=== PATIENT | male | born 1980 | race Caucasian/White ===

== ENCOUNTER 2019-08-22 18:21 | Inpatient (IN) ==
[2019-08-22] MEDS ORDERED: KETOROLAC TROMETHAMINE 60 MG/2 ML VIAL IM STA (18:45)
[2019-08-22] MEDS ORDERED: CYCLOBENZAPRINE HCL 10 MG TAB PO STA (18:45)
[2019-08-22] MEDS ORDERED: OXYCODONE/ACETAMINOPHEN 5mg/325mg TAB PO STA (18:45)
[2019-08-22] MEDS ORDERED: DEXAMETHASONE **PF** INJ 10 MG/ML VIAL IM ONE (18:45)
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
[2019-08-22] MEDS ORDERED: FLEXERIL HOME PACK 10 MG VIAL PO ONE (19:50)
[2019-08-22] MEDS ORDERED: OXYCODONE IR HOME PACK PO ONE (19:50)
[2019-08-22] MEDS ORDERED: cefTRIAXone SODIUM 2,000 MG/70 ML BAG IV STA (20:07)
[2019-08-22] MEDS ORDERED: VANCOMYCIN HCL 1,750 MG in SODIUM CHLORIDE 0.9% 500 ML IV ONE (20:07)
[2019-08-22] MEDS ORDERED: VANCOMYCIN CONSULT ACTIVE PRN (20:07)
--- NOTE | 2019-08-22 20:12 | CT Scan Report ---
CT OF THE LUMBAR SPINE WITHOUT CONTRAST CLINICAL HISTORY: Low back pain down legs ? incontinence COMPARISON STUDY: Lumbar spine radiographs June 01, 2019. TECHNIQUE: Axial images of the lumbar spine were obtained without IV contrast. Sagittal and coronal r econstructions were viewed. Automated exposure control was utilized for the study. A dose lowering t echnique was utilized adhering to the principles of ALARA. FINDINGS: For purposes of numbering on this exam, the L5-S1 disc space is assigned to axial image 338 of [id number]. The patient is status post L4-L5 and L5-S1 discectomies with interbody spacer placement. Pos terior decompression is noted with bilateral pedicle screws at the L4, L5 and S1 levels. The hardware is intact. Note is made of erosion of the inferior endplate of L2 and the superior endplate of L3 wi th disc space narrowing and paravertebral infiltration. This is new since CT of July 20, 2018. Ev aluation is suboptimal on this unenhanced CT. Intracanalicular density is noted at the L2-L3 level. N o additional acute findings are noted within the lumbar spine by CT. There is no fracture or suspicio us lesion. Sigmoid diverticulosis with sigmoid colon wall thickening is partially imaged on this exam . There is mild pericolonic infiltration. Similar findings were shown on CT of July 20, 2018. IMPRESSION: 1. Findings consistent with L2-L3 discitis with associated osteomyelitis. Suboptimal evaluation of th e canal given CT technique. Intracanalicular density at the L2-L3 level could reflect a phlegmon or a bscess. If possible, an MRI of the lumbar spine with and without contrast is recommended. Findings di scussed with Tsering Ball at time of dictation. 2. Status post L4-L5 and L5-S1 discectomies with posterior decompression and bilateral pedicle screw fusion. 3. Persistent mild acute sigmoid diverticulitis, partially imaged on this exam. This was shown on CT of July 20, 2018. A follow-up nonemergent colonoscopy is recommended to exclude the possibility o f an underlying neoplasm. Electronically signed by: Ankit Del Rio M.D. 08/22/2019 8:10 PM
[2019-08-22] MEDS ORDERED: MoRPHine SULFATE 4 MG/ML 1 ML CARP\\VIAL IV STA (20:41)
[2019-08-22] MEDS ORDERED: LIDOCAINE 5% 1 PATCH TD STA (21:05)
[2019-08-22 21:14] LABS: Appearance Urine Clear (Clear); Blood Urine Negative (Negative); Color Urine Dark Yellow; Glucose Urine UA Negative (Negative); Ketones Urine Negative (Negative); Leukocyte Esterase Urine Negative (Negative); Nitrite Urine Negative (Negative); Protein Urine Negative (Negative); Specific Gravity Urine 1.031 (1.000-1.030); Urobilinogen Urine Negative (Negative)
[2019-08-22 21:15] LABS: Basophils # (auto) 0.03 K/uL (0-0.2); Basophils % (auto) 0.2 %; Eosinophils # (auto) 0.22 K/uL (0-0.5); Eosinophils % (auto) 1.6 %; Hematocrit (blood only) 40.6 % (42-52); Hemoglobin 13.5 g/dL (14.0-18.0); Immature Granulocytes # (auto) 0.04 K/uL (0.00-0.02); Immature Granulocytes % (auto) 0.3 %; Lymphocytes # (auto) 1.11 K/uL (1.2-3.4); Mean Corpuscular Hemoglobin 29.3 pg (25-34); Mean Corpuscular Hgb Conc 33.3 g/dL (32-36); Mean Corpuscular Volume 88.3 fL (80-100); Mean Platelet Volume 10.6 fL (7.4-10.4); Monocytes % (auto) 4.3 %; Neutrophils # (auto) 11.92 K/uL (1.4-6.5); Neutrophils % (auto) 85.6 %; Platelet Count 348 K/uL (130-400); RDW Coefficient of Variation 15.2 % (11.5-14.5); RDW Standard Deviation 48.8 fL (36.4-46.3); White Blood Count 13.92 K/uL (4.8-10.8)
[2019-08-22 21:23] LABS: Bilirubin Urine Negative (Negative); Ictotest Urine Negative (Negative)
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
[2019-08-22 21:31] LABS: INR 1.1 (0.9-1.1); Prothrombin Time 10.9 Seconds (9.0-12.0)
[2019-08-22 21:38] LABS: Albumin Level 3.9 gm/dl (3.4-5.0); BUN Creatinine Ratio 9.4 (10-20); Calcium 9.6 mg/dl (8.5-10.1); Creatinine Clr Calc Pharmacy 108.8 ml/min; Est GFR (African American) 108.3; Est GFR (Non-African American) 93.5; Potassium 3.6 mmol/L (3.5-5.1)
[2019-08-22 21:41] LABS: Albumin Globulin Ratio 0.9 (0.9-2); Bilirubin,Total 0.3 mg/dl (0.2-1); Globulin 4.5 gm/dl (2.5-4.0); Total Protein 8.4 gm/dl (6.4-8.2)
[2019-08-22] MEDS ORDERED: HYDROmorphone INJ 0.5 MG/0.5 ML SYR IV STA (22:40)
--- NOTE | 2019-08-22 22:52 | XRay Report ---
XR chest 1V portable CLINICAL HISTORY: cough COMPARISON STUDY: Chest radiograph January 20, 2019. FINDINGS: Lung volumes are normal. Lungs are clear. There is no pneumothorax or pleural effusion. Bor derline cardiomegaly is unchanged. Mediastinal contours are normal. There is no evidence for pulmonar y edema. IMPRESSION: No acute cardiopulmonary findings. Electronically signed by: Ankit Del Rio M.D. 08/22/2019 10:50 PM
[2019-08-22 23:20] LABS: Amphetamines+Metham, Urine Neg (Neg); Barbiturates, Urine Neg (Neg); Benzodiazepine, Urine Neg (Neg); Cocaine, Urine Neg (Neg); MDMA (Ecstacy), Urine Neg (Neg); Methadone, Urine Neg (Neg); Opiate, Urine Pos (Neg); Phencyclidine, Urine Neg (Neg)
[2019-08-22] MEDS ORDERED: PROMETHAZINE HCL 12.5 MG in SODIUM CHLORIDE 0.9% 50 ML IV PRN (23:27)
[2019-08-22] MEDS ORDERED: CEFEPIME CONSULT ACTIVE PRN (23:39)
[2019-08-22] MEDS: OXYCODONE HCL IR 5 MG TAB (IMMEDIATE RELEASE) PO PRN (23:47)
[2019-08-23] MEDS ORDERED: LACTATED RINGER'S 1,000 ML IV SCH
[2019-08-23] MEDS: CEFEPIME 2,000 MG in SYRINGE 7.5 ML IV SCH ×3 (00:24→23:15)
[2019-08-23] MEDS: LORazepam 0.25 MG/0.5 ML VIAL IV PRN ×2 (00:25→13:43)
[2019-08-23] MEDS ORDERED: LACTATED RINGER'S 1,000 ML IV ONE (01:43)
[2019-08-23] MEDS ORDERED: ACETAMINOPHEN 325 MG TAB PO PRN (01:44)
[2019-08-23] MEDS: HYDROmorphone INJ 0.5 MG/0.5 ML SYR IV PRN ×6 (02:19→23:16)
[2019-08-23] MEDS: LACTATED RINGER'S 1,000 ML IV SCH ×2 (04:41→18:28)
--- NOTE | 2019-08-23 05:06 | Pharmacy Report ---
Pharmacy Abx Initial Consult - Date of Service August 23, 2019 - Pharmacy Dosing Scope Date of Consult: 08/22/19 Consultation requested by: Dr. Arias Pharmacy is consulted to initiate Cefepime IV dosing and continue Vancomycin IV dosing therapy, order appropriate labs and adjust drug dose/frequency. - Subjective The patient is a 39 year old M admitted on 08/22/19 22:48 with possible osteomyelitis of spine. He has Hx of spinal fusion and presents today with pain, numbness and bouts of incontinence of both bowel and bladder. He has history of smoking as well. Dr. Arias continued the Vancomycin from the ED and asks pharmacy to also dose Cefepime in this patient. - Objective Height: 6 ft Weight: 90 kg Vital Signs (Past 12hrs): Vital Signs Temp Pulse Pulse Resp BP BP Pulse Ox 08/22/19 23:30 37.2 C 106 H 18 141/84 H 96 08/22/19 23:14 100 H 18 142/92 H 96 08/22/19 22:40 88 18 138/90 96 08/22/19 21:45 87 18 131/90 96 08/22/19 21:07 37.2 C 93 H 18 125/74 96 08/22/19 18:31 36.6 C 95 H 20 153/87 H 97 Lab Results (24hrs): Laboratory Tests (24 Hours) 08/22/19 08/22/19 20:45 20:45 WBC 13.92 H Neut # (Auto) 11.92 H Creatinine 1.02 Est Cr Clr Drug Dosing 108.8 Micro Results: 08/22/19 20:45 Aerobic Blood Culture - Pending Blood Anaerobic Blood Culture - Pending 08/22/19 20:45 Aerobic Blood Culture - Pending Blood Anaerobic Blood Culture - Pending - Assessment & Plan Assessment 39 year old M with possible infection in spine Plan Vancomycin IV * Estimated PK Parameters: Vd 0.7 L/kg, Josh 0.095 hr-1, t1/2 7.29 hr * Loading dose: 1750 mg (19 mg/kg) in ED * Maintenance dose: 1500mg IV (~16mg/kg) every 8hours * Goal trough level: 15-20 mcg/mL * Trough level ordered prior to 0800 dose on 08/24/19 Cefepime IV 2gm IV every 12 hours indicated for skin/structure infections; no adjustment for CRCL of >100 ml/min Pharmacy will continue to follow and will adjust dose/frequency as necessary. Thank you.
[2019-08-23 07:48] LABS: Eosinophils # (auto) 0.03 K/uL (0-0.5); Eosinophils % (auto) 0.5 %; Hematocrit (blood only) 37.6 % (42-52); Hemoglobin 12.2 g/dL (14.0-18.0); Immature Granulocytes # (auto) 0.01 K/uL (0.00-0.02); Immature Granulocytes % (auto) 0.2 %; Lymphocytes # (auto) 0.82 K/uL (1.2-3.4); Lymphocytes % (auto) 14.8 %; Mean Corpuscular Hemoglobin 28.4 pg (25-34); Mean Corpuscular Hgb Conc 32.4 g/dL (32-36); Mean Corpuscular Volume 87.6 fL (80-100); Mean Platelet Volume 10.9 fL (7.4-10.4); Monocytes # (auto) 0.34 K/uL (0.11-0.59); Monocytes % (auto) 6.1 %; Neutrophils # (auto) 4.35 K/uL (1.4-6.5); Neutrophils % (auto) 78.4 %; Platelet Count 301 K/uL (130-400); RDW Coefficient of Variation 15.3 % (11.5-14.5); RDW Standard Deviation 48.7 fL (36.4-46.3); Red Blood Count 4.29 M/uL (4.7-6.1); White Blood Count 5.55 K/uL (4.8-10.8)
[2019-08-23 08:18] LABS: Calcium 9.4 mg/dl (8.5-10.1); Creatinine Clr Calc Pharmacy 137.1 ml/min; Est GFR (African American) 131.6; Est GFR (Non-African American) 113.5; Potassium 3.9 mmol/L (3.5-5.1)
[2019-08-23] MEDS: VANCOMYCIN HCL 1,500 MG in SODIUM CHLORIDE 0.9% 500 ML IV SCH ×3 (08:20→23:15)
[2019-08-23 09:00] LABS: Folate (Folic Acid) 9.74 ng/ml (>5.38)
[2019-08-23] MEDS: OXYCODONE HCL IR 5 MG TAB (IMMEDIATE RELEASE) PO PRN ×2 (09:49→18:27)
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
--- NOTE | 2019-08-23 11:51 | Orthopedic Consultation ---
Date of Consultation August 23, 2019 Assessment & Plan (1) Lumbar discitis: I spoke with the patient and his mother who is in the room at the time. There is evidence of discitis at L2-3. I have received permission from his landcare officer to cut his ankle bracelet off and subsequently proceed with an MRI of the lumbar spine. Related the patient and his mother that we would most likely be able to treat this with appropriate antibiotics and hopefully avoid any surgical intervention. He understands and agrees. Present on Admission?: Yes History of Present Illness Reason for Consultation: Back and bilateral leg pain Attending Physician: Jared Dorman MD History of Present Illness This is a 39-year-old male known to me from having undergone a multilevel lumbar decompression fusion several years ago the presents the emergency room with severe back and bilateral leg symptoms. He states this began several months ago with a modest twisting event. At this time his pain is somewhat controlled. He denies any leg pain he does state he is able to up and ambulate without difficulty other than the leg pain. Allergies Allergy/AdvReac Type Severity Reaction Status Date / Time fentanyl Allergy Severe ANAPHYLAXIS Verified 08/22/19 23:06 propoxyphene Allergy Intermediate TONGUE Verified 08/22/19 23:06 NUMBNESS tramadol Allergy Intermediate swelling Verified 08/22/19 23:06 ketorolac AdvReac Intermediate FACIAL Verified 08/22/19 23:06 SWELLING/THROAT SWELLING Home Medications Home Medications Medication Instructions Recorded Confirmed Type acetaminophen [Tylenol Extra 1,000 mg PO Q6H PRN 08/22/19 08/22/19 History Strength] cyclobenzaprine 20 mg PO TID PRN #15 tab 08/22/19 08/22/19 Rx Patient History Medical History Osteoarthritis Spinal stenosis Temporomandibular joint disorder Surgical History Fusion of spine LUMBAR History of anesthesia reaction BP DROPS History of back surgery (Resolved) History of tooth extraction Hx of cholecystectomy (Resolved) S/P nasal surgery RE-SET D/T FRACTURE Family History Grandfather (Maternal) Family history of diabetes mellitus Social History Preferred Language: Palauan Communication Ability: Effective 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 He has reasonable strength testing bilateral extremities. Results & Data Vital Signs (Past 12 Hours) Vital Signs Temp Pulse Resp BP Pulse Ox 08/23/19 07:00 36.8 C 79 16 99/59 L 95 08/23/19 05:45 36.5 C 78 16 127/66 95
--- NOTE | 2019-08-23 14:53 | Magnetic Resonance Report ---
MR lumbar spine wo con CLINICAL HISTORY: 39 years-old Male presenting with discitis osteomyelitis on CT, possible intracanal icular phlegmon at L2-3 MRI for further evaluation, lumbar pain for 2 months, no history of trauma, h istory of spinal fusion 17 years ago, left foot numbness. TECHNIQUE: Multisequence, multiplanar MR imaging of the lumbar spine was performed without the use of intravenous contrast. IV contrast: None. COMPARISON: CT lumbar spine from 08/22/2019. FINDINGS: Localizer images: Unremarkable. Straightening of normal lumbar lordosis. Diffuse bony edema throughout L2 and L3. Associated diffuse T1 hypointensity of L2 and T1 hypointensi ty centered at the superior endplate of L3 occupying approximately 50% of the vertebral body. Abnorma l fluid within the L2-3 intervertebral disc. A disc bulge at this level results in moderate to severe effacement of the ventral thecal sac with trace residual CSF evident. Extensive paraspinal edema at this level, left greater than right. There is associated edema with upward lifting of the posterior l ongitudinal ligament. There is no convincing evidence of an epidural collection allowing for the lack of intravenous contrast on this exam. Associated moderate to severe bilateral neural foraminal narro wing. Redemonstration of posterior bilateral transpedicular screw and mary fixation of L4-S1 with laminectom y defects of L4 and L5. Adequate posterior decompression. Allowing for susceptibility artifact, no ne ural foraminal narrowing. Interbody spacers noted at L4-5 and L5-S1. Grossly normal bone marrow signa l at these levels. No fluid collection in the operative bed, expected signal intensity changes in the operative bed. Mild disc bulge at L3-4 consistent with adjacent level degenerative change. This results in moderate effacement of the ventral thecal sac and lateral recesses. Abutment of the transiting L4 nerve root s uspected. Moderate bilateral neural foraminal narrowing. Possible mass effect on the exiting L3 nerve roots. Spinal cord terminates in good position at L1. Cauda equina crowding to moderate to severe degree at L2-3 though otherwise normal. No evidence of a buckled morphology to suggest cauda equina impingement . Flow voids within the vasculature preserved. Remaining visualized soft tissues within normal limits . IMPRESSION: 1. Findings highly suspicious for infectious discitis osteomyelitis at L2-3. Disc bulge at this leve l is related to discitis and results in moderate to severe spinal canal stenosis. No convincing evide nce of cauda equina impingement. No convincing evidence of an epidural abscess or epidural extension of infection. 2. Reactive edema along the ventral spinal canal at L2 and L3 with up lifting of the posterior longi tudinal ligament. 3. Moderate to severe bilateral neural foraminal narrowing at L2-3. 4. Posterior lumbar fusion at L4-S1, interbody spacers, and L4-5 laminectomies. 5. Adjacent level degenerative change at L3-4 with moderate spinal canal stenosis and moderate bilat eral neural foraminal narrowing. Possible mass effect on exiting L3 nerve roots. The report will be called/faxed according to standard departmental protocol for a critical finding. ACT 112: Negative or not required by law. Electronically signed by: Nathen Boothe M.D. 08/23/2019 2:51 PM
--- NOTE | 2019-08-23 15:42 | Hospitalist Progress Note ---
Date of Service August 23, 2019 Assessment & Plan (1) Osteomyelitis of lumbar spine: (2) Lumbar discitis: Lumbar discitis/osteomyelitis --MRI Lumbar Spine:Findings highly suspicious for infectious discitis osteomyelitis at L2-3. Disc bulge at this level is related to discitis and results in moderate to severe spinal canal stenosis. No convincing evidence of cauda equina impingement. No convincing evidence of an epidural abscess or epidural extension of infection. Reactive edema along the ventral spinal canal at L2 and L3 with up lifting of the posterior longitudinal ligament. Moderate to severe bilateral neural foraminal narrowing at L2-3. Posterior lumbar fusion at L4-S1, interbody spacers, and L4-5 laminectomies. Adjacent level degenerative change at L3-4 with moderate spinal canal stenosis and moderate bilateral neural foraminal narrowing. Possible mass effect on exiting L3 nerve roots. --Unclear source of infection. Urine drug screen positive for opiates --Continue IV vancomycin, cefepime Day#2 --Blood cultures pending --Appreciate orthopedics, ID input --Pain control --Gentle IV fluids (3) Tobacco use disorder: Smoking cessation counseling DVT Px: SCDs for now Ambulate Subjective Patient seen and examined at bedside Complains of low back pain radiating down legs Denies any abdominal pain, nausea, vomiting Also denies any chest pain, shortness of breath, dizziness Family at bedside Offers no other complaints Review of Systems Review of Systems: All systems reviewed & are unremarkable except as noted in HPI & below Physical Exam Physical Exam: Physical Exam: Vitals signs as noted above General Appearance:Moderately built and nourished, no apparent distress Head: normocephalic, Atraumatic Eyes: normal inspection, EOMI Neck: supple, Trachea midline Respiratory/Chest: Normal breath sounds, CTA Cardiovascular: S1, S2, No murmur Abdomen/GI:Soft, Non tender, Bowel sounds present Extremities/Musculoskelatal:normal inspection, no edema Spine: Lumbar spinal/paraspinal tenderness Neurologic/Psych:AAOX3, grossly no focal neurological deficits Skin: normal color, warm Results & Data Vital Signs (Past 12 Hours) Vital Signs Temp Pulse Resp BP Pulse Ox 08/23/19 15:09 36.9 C 83 16 123/73 97 08/23/19 07:00 36.8 C 79 16 99/59 L 95 08/23/19 05:45 36.5 C 78 16 127/66 95 Laboratory Results Short CBC 08/22/19 08/23/19 Range/Units 20:45 07:07 WBC 13.92 H 5.55 (4.8-10.8) K/uL Hgb 13.5 L 12.2 L (14.0-18.0) g/dL Hct 40.6 L 37.6 L (42-52) % Plt Count 348 301 (130-400) K/uL BMP 08/22/19 08/23/19 20:45 07:07 Sodium 137 137 Potassium 3.6 3.9 Chloride 104 105 Carbon Dioxide 27 27 BUN 10 13 Creatinine 1.02 0.81 Glucose 108 H 160 H Calcium 9.6 9.4 Liver Function 08/22/19 Range/Units 20:45 Total Bilirubin 0.3 (0.2-1) mg/dl AST 18 (15-37) U/L ALT 41 (12-78) U/L Alkaline Phosphatase 125 H (45-117) U/L Albumin 3.9 (3.4-5.0) gm/dl Urine 08/22/19 Range/Units 20:08 Urine Color Dark Yellow Urine Appearance Clear (Clear) Urine pH 5.0 (4.5-7.5) Ur Specific [place] 1.031 H (1.000-1.030) Urine Protein Negative (Negative) Urine Glucose (UA) Negative (Negative)
[2019-08-23] MEDS: LIDOCAINE 5% 1 PATCH TD SCH (20:00)
[2019-08-24] MEDS: HYDROmorphone INJ 0.5 MG/0.5 ML SYR IV PRN ×6 (02:27→21:21)
[2019-08-24] MEDS ORDERED: VANCOMYCIN TROUGH ONE (07:30)
[2019-08-24 07:38] LABS: Hematocrit (blood only) 37.2 % (42-52); Mean Corpuscular Hemoglobin 28.8 pg (25-34); Mean Corpuscular Hgb Conc 32.3 g/dL (32-36); Mean Corpuscular Volume 89.4 fL (80-100); Mean Platelet Volume 10.6 fL (7.4-10.4); Platelet Count 301 K/uL (130-400); RDW Coefficient of Variation 15.5 % (11.5-14.5); RDW Standard Deviation 49.8 fL (36.4-46.3); Red Blood Count 4.16 M/uL (4.7-6.1); White Blood Count 10.46 K/uL (4.8-10.8)
[2019-08-24 08:09] LABS: Creatinine Clr Calc Pharmacy 133.7 ml/min; Est GFR (African American) 130.3; Est GFR (Non-African American) 112.4; Potassium 3.8 mmol/L (3.5-5.1)
[2019-08-24] MEDS: VANCOMYCIN HCL 1,500 MG in SODIUM CHLORIDE 0.9% 500 ML IV SCH ×3 (08:33→23:37)
--- NOTE | 2019-08-24 08:55 | Orthopedic Progress Note ---
Date of Service August 24, 2019 Assessment & Plan (1) Vertebral osteomyelitis, acute: Patient had MRI last evening. Dr. Cooper is out of town today to review this. The plan is to try and treat this conservatively. I will make him n.p.o. after midnight just in case Dr. Cooper decides to take him to the OR tomorrow in light of his MRI findings. Supervising Physician Co-Signing Physician Notes Dr. Yoseph Cooper Subjective Patient seen and examined at bedside Complains of low back pain radiating down legs Denies any abdominal pain, nausea, vomiting Also denies any chest pain, shortness of breath, dizziness Family at bedside Offers no other complaints Review of Systems Review of Systems: All systems reviewed & are unremarkable except as noted in HPI & below Physical Exam Physical Exam: Unchanged Results & Data Vital Signs (Past 12 Hours) Vital Signs Temp Pulse Resp BP Pulse Ox 08/24/19 07:26 36.5 C 77 20 134/74 98 08/23/19 23:12 36.6 C 77 16 111/67 98 Diagnostic Findings [place], [place] [phone] Magnetic Resonance Report Patient: BERTO JARAMILLOAdmit Date: 08/22/19 MR#: [id number]: [id number] MEDOW Acct ID:[id number]: Date: 1980[facility] Zip: [place] [address] Age: 39Location: 3W Sex: M Room/Bed: [facility] Att Phy: Jared Dorman MDDiagnosis: SPINE OSTEOMYELITIS Lucero Phy: PCP,NOService Date: 08/23/19 Fam Phy: PCP,NOInterpreting Phy: Nathen Boothe MD Admit Phy: Aron Arias MD Ordering Phy: Jared Dorman MD cc: ~ MR lumbar spine wo con CLINICAL HISTORY: 39 years-old Male presenting with discitis osteomyelitis on CT, possible intracanalicular phlegmon at L2-3 MRI for further evaluation, lumbar pain for 2 months, no history of trauma, history of spinal fusion 17 years ago, left foot numbness. TECHNIQUE: Multisequence, multiplanar MR imaging of the lumbar spine was performed without the use of intravenous contrast. IV contrast: None. COMPARISON: CT lumbar spine from 08/22/2019. FINDINGS: Localizer images: Unremarkable. Straightening of normal lumbar lordosis. Diffuse bony edema throughout L2 and L3. Associated diffuse T1 hypointensity of L2 and T1 hypointensity centered at the superior endplate of L3 occupying approximately 50% of the vertebral body. Abnormal fluid within the L2-3 intervertebral disc. A disc bulge at this level results in moderate to severe effacement of the ventral thecal sac with trace residual CSF evident. Extensive paraspinal edema at this level, left greater than right. There is associated edema with upward lifting of the posterior longitudinal ligament. There is no convincing evidence of an epidural collection allowing for the lack of intravenous contrast on this exam. Associated moderate to severe bilateral neural foraminal narrowing. Redemonstration of posterior bilateral transpedicular screw and mary fixation of L4-S1 with laminectomy defects of L4 and L5. Adequate posterior decompression. Allowing for susceptibility artifact, no neural foraminal narrowing. Interbody spacers noted at L4-5 and L5-S1. Grossly normal bone marrow signal at these levels. No fluid collection in the operative bed, expected signal intensity changes in the operative bed. Mild disc bulge at L3-4 consistent with adjacent level degenerative change. This results in moderate effacement of the ventral thecal sac and lateral recesses. Abutment of the transiting L4 nerve root suspected. Moderate bilateral neural foraminal narrowing. Possible mass effect on the exiting L3 nerve roots. Spinal cord terminates in good position at L1. Cauda equina crowding to moderate to severe degree at L2-3 though otherwise normal. No evidence of a buckled morphology to suggest cauda equina impingement. Flow voids within the vasculature preserved. Remaining visualized soft tissues within normal limits. IMPRESSION: 1. Findings highly suspicious for infectious discitis osteomyelitis at L2-3. Disc bulge at this level is related to discitis and results in moderate to severe spinal canal stenosis. No convincing evidence of cauda equina impingement. No convincing evidence of an epidural abscess or epidural extension of infection. 2. Reactive edema along the ventral spinal canal at L2 and L3 with up lifting of the posterior longitudinal ligament. 3. Moderate to severe bilateral neural foraminal narrowing at L2-3. 4. Posterior lumbar fusion at L4-S1, interbody spacers, and L4-5 laminectomies. 5. Adjacent level degenerative change at L3-4 with moderate spinal canal stenosis and moderate bilateral neural foraminal narrowing. Possible mass effect on exiting L3 nerve roots. The report will be called/faxed according to standard departmental protocol for a critical finding. ACT 112: Negative or not required by law. Electronically signed by: Nathen Boothe M.D. 08/23/2019 2:51 PM Dictated: 08/23/19 1441 Transcribed: 08/23/19 1441
[2019-08-24] MEDS: CEFEPIME 2,000 MG in SYRINGE 7.5 ML IV SCH ×2 (13:35→23:38)
[2019-08-24] MEDS: OXYCODONE HCL IR 5 MG TAB (IMMEDIATE RELEASE) PO PRN ×3 (15:26→23:37)
--- NOTE | 2019-08-24 17:37 | Anesthesiology Consultation ---
Date of Service August 24, 2019 Assessment & Plan (1) Encounter for pre-operative examination: Chart Review Chart Review: Acceptable Risk for Surgery History Surgery Operation Date: 08/25/19 07:00 Proposed Procedures p L1-L2 Posterior Lumbar Decompression, Possible Fusion - Yoseph Cooper DO s Incision and Drainage Lumbar Spine - Yoseph Cooper DO Height/Weight Height: 6 ft Weight: 90 kg Allergies Allergy/AdvReac Type Severity Reaction Status Date / Time fentanyl Allergy Severe ANAPHYLAXIS Verified 08/22/19 23:06 propoxyphene Allergy Intermediate TONGUE Verified 08/22/19 23:06 NUMBNESS tramadol Allergy Intermediate swelling Verified 08/22/19 23:06 ketorolac AdvReac Intermediate FACIAL Verified 08/22/19 23:06 SWELLING/THROAT SWELLING Medications Home Medications Medication Instructions Recorded Confirmed Last Taken acetaminophen [Tylenol Extra 1,000 mg PO Q6H PRN 08/22/19 08/22/19 08/22/19 Strength] cyclobenzaprine 20 mg PO TID PRN #15 tab 08/22/19 08/22/19 Unknown Active Medications Generic Name Dose Route Start Last Admin Trade Name Freq PRN Reason Stop Dose Admin Hydromorphone HCl 0.5 mg 08/22/19 23:27 08/24/19 17:29 Dilaudid IV 09/05/19 23:26 0.5 mg Q3H PRN Administration Pain Lorazepam 0.25 mg in 0.5 mls @ 0.5 mls/min 08/22/19 23:27 08/23/19 13:43 Ativan IV 09/21/19 23:26 0.5 mls/min Q4H PRN Administration Anxiety Cefepime HCl 2,000 mg/ Syringe 20 mls @ 5 mls/min 08/23/19 00:00 08/24/19 13:35 IV 10/04/19 00:00 5 mls/min Q12H KYRA Administration Protocol Vancomycin HCl 1,500 mg/ 530 mls @ 200 mls/hr 08/23/19 08:00 08/24/19 16:26 Sodium Chloride IV 10/04/19 07:59 200 mls/hr Q8H KYRA Administration Lidocaine 1 patch 08/23/19 21:00 08/23/19 20:00 Lidoderm 5% TD 09/22/19 20:59 1 patch HS KYRA Administration Miscellaneous 1 ea 08/23/19 09:00 08/24/19 08:47 Remove Lidoderm Patch N/A 09/22/19 08:59 1 ea QAM KYRA Administration Oxycodone HCl 5 mg 08/22/19 23:27 08/24/19 15:26 Roxicodone Immediate Rel PO 09/05/19 23:26 5 mg Q4H PRN Administration Pain NPO Date Last Intake of Fluids: 08/23/19 Date Last Intake of Solids: 08/23/19 Time Last Intake of Solids: 00:30 Past Medical History Medical History Osteoarthritis Spinal stenosis Temporomandibular joint disorder Past Family History Family History Grandfather (Maternal) Family history of diabetes mellitus Past Surgical History Surgical History Fusion of spine LUMBAR History of anesthesia reaction BP DROPS History of back surgery (Resolved) History of tooth extraction Hx of cholecystectomy (Resolved) S/P nasal surgery RE-SET D/T FRACTURE Social History Smoking Status: Current every day smoker tobacco type: cigarettes Smoking cigarettes per day: pack Do You Dip or Chew Tobacco: No Hx Alcohol Use: No Hx Substance Use: No substance use type: does not use Physical Exam Vital Signs Last Vital Signs Temp 36.7 C 08/24/19 14:49 Pulse 84 08/24/19 14:49 Resp 16 08/24/19 14:49 BP 136/88 08/24/19 14:49 Pulse Ox 97 08/24/19 14:49 Testing Laboratory Results 08/24/19 07:23 08/24/19 07:23 PT 10.9 Seconds (9.0-12.0) 08/22/19 20:45 INR 1.1 (0.9-1.1) 08/22/19 20:45 Urine Color Dark Yellow 08/22/19 20:08 Urine Appearance Clear (Clear) 08/22/19 20:08 Urine pH 5.0 (4.5-7.5) 08/22/19 20:08 Ur Specific [place] 1.031 (1.000-1.030) H 08/22/19 20:08 Urine Protein Negative (Negative) 08/22/19 20:08 Urine Glucose (UA) Negative (Negative) 08/22/19 20:08 Urine Ketones Negative (Negative) 08/22/19 20:08 Urine Nitrite Negative (Negative) 08/22/19 20:08 Ur Leukocyte Esterase Negative (Negative) 08/22/19 20:08 08/22/19 20:45 Aerobic Blood Culture - Preliminary Blood No growth in Aerobic bottle after 24 hours. Anaerobic Blood Culture - Preliminary No growth in Anaerobic bottle after 24 hours. 08/22/19 20:45 Aerobic Blood Culture - Preliminary Blood No growth in Aerobic bottle after 24 hours. Anaerobic Blood Culture - Preliminary No growth in Anaerobic bottle after 24 hours. Electrocardiogram Date: 01/20/19 Findings: + NSR @ (87) Chest X-Ray Date: 08/22/19 Findings: + NAD
--- NOTE | 2019-08-24 17:53 | Hospitalist Progress Note ---
Date of Service August 24, 2019 Assessment & Plan (1) Osteomyelitis of lumbar spine: (2) Lumbar discitis: Lumbar discitis/osteomyelitis --MRI Lumbar Spine:Findings highly suspicious for infectious discitis osteomyelitis at L2-3. Disc bulge at this level is related to discitis and results in moderate to severe spinal canal stenosis. No convincing evidence of cauda equina impingement. No convincing evidence of an epidural abscess or epidural extension of infection. Reactive edema along the ventral spinal canal at L2 and L3 with up lifting of the posterior longitudinal ligament. Moderate to severe bilateral neural foraminal narrowing at L2-3. Posterior lumbar fusion at L4-S1, interbody spacers, and L4-5 laminectomies. Adjacent level degenerative change at L3-4 with moderate spinal canal stenosis and moderate bilateral neural foraminal narrowing. Possible mass effect on exiting L3 nerve roots. --Unclear source of infection. Urine drug screen positive for opiates--Patient admits to taking PO Morphine prior to admission --Continue IV vancomycin, cefepime Day#3 --Blood cultures:No growth to date --Appreciate orthopedics, ID input --Pain control --Received IV fluids --NPO after midnight for possible procedure (3) Tobacco use disorder: Smoking cessation counseling DVT Px: SCDs for now Ambulate Subjective Patient seen and examined at bedside Continues to have lower back pain No new complaints Denies any chest pain, shortness of breath, dizziness, nausea, abd pain Review of Systems Review of Systems: All systems reviewed & are unremarkable except as noted in HPI & below Physical Exam Physical Exam: Physical Exam: Vitals signs as noted above General Appearance:Moderately built and nourished, no apparent distress Head: normocephalic, Atraumatic Eyes: normal inspection, EOMI Neck: supple, Trachea midline Respiratory/Chest: Normal breath sounds, CTA Cardiovascular: S1, S2, No murmur Abdomen/GI:Soft, Non tender, Bowel sounds present Extremities/Musculoskelatal:normal inspection, no edema Spine: Lumbar spinal/paraspinal tenderness Neurologic/Psych:AAOX3, grossly no focal neurological deficits Skin: normal color, warm Results & Data Vital Signs (Past 12 Hours) Vital Signs Temp Pulse Resp BP Pulse Ox 08/24/19 14:49 36.7 C 84 16 136/88 97 08/24/19 07:26 36.5 C 77 20 134/74 98 Laboratory Results Short CBC 08/24/19 Range/Units 07:23 WBC 10.46 (4.8-10.8) K/uL Hgb 12.0 L (14.0-18.0) g/dL Hct 37.2 L (42-52) % Plt Count 301 (130-400) K/uL BMP 08/24/19 07:23 Sodium 142 Potassium 3.8 Chloride 111 H Carbon Dioxide 27 BUN 12 Creatinine 0.83 Glucose 94 Calcium 9.0
[2019-08-24] MEDS: LIDOCAINE 5% 1 PATCH TD SCH (21:21)
[2019-08-25] MEDS: HYDROmorphone INJ 0.5 MG/0.5 ML SYR IV PRN ×6 (00:24→22:04)
[2019-08-25 00:37] LABS: Codeine Urine NEGATIVE ng/mL (<50); Hydrocodone Urine NEGATIVE ng/mL (<50); Hydromor Urine NEGATIVE ng/mL (<50); Morphine Urine 1700 ng/mL (<50); Norhydrocodone Conf Ur NEGATIVE ng/mL (<50); Noroxycodone Urine 289 ng/mL (<50); Oxycodone Urine 115 ng/mL (<50); Oxymorph Urine 216 ng/mL (<50)
[2019-08-25] MEDS: OXYCODONE HCL IR 5 MG TAB (IMMEDIATE RELEASE) PO PRN ×4 (04:06→20:42)
[2019-08-25 08:25] LABS: Creatinine Clr Calc Pharmacy 138.8 ml/min; Est GFR (African American) 132.3; Est GFR (Non-African American) 114.1
[2019-08-25] MEDS: VANCOMYCIN HCL 1,500 MG in SODIUM CHLORIDE 0.9% 500 ML IV SCH ×3 (08:41→23:29)
--- NOTE | 2019-08-25 10:29 | Pharmacy Report ---
Pharmacy Abx Dose Progress Nt - Date of Service August 25, 2019 - Pharmacy Dosing Scope The patient is currently receiving the following antimicrobial agents per Pharmacy consult: Vancomycin 1500 mg IV every 8 hours - Objective Vital Signs (Past 12hrs): Vital Signs Temp Pulse Resp BP Pulse Ox 08/25/19 07:42 36.7 C 65 16 129/73 98 08/24/19 22:50 36.8 C 68 18 121/74 97 Lab Results (24hrs): Laboratory Tests (24 Hours) 08/25/19 07:35 Creatinine 0.80 Est Cr Clr Drug Dosing 138.8 - Assessment & Plan Assessment 39 year old M receiving Vancomycin 1500 mg (16 mg/kg) IV Q8h for treatment of Osteomyelitis of the spine. Today is day #4 of antimicrobial therapy Vancomycin trough was drawn yesterday before dose at 0800, after 3 maintenance doses, so this is at steady state. 08/24/19 07:23 Vancomycin Trough 18.5 Plan Vancomycin IV * Trough level of 18.5 mcg/mL is therapeutic. * Continue dose of Vancomycin 1500 mg IV every 8 hours * Goal trough level for Osteo: 15 to 20 mcg/mL * Repeat trough level ordered for: 08/26/19 before dose at 0800 AM to confirm there is no accumulation. Pharmacy will continue to follow and will adjust dose/frequency as necessary. Thank you.
--- NOTE | 2019-08-25 11:04 | Orthopedic Progress Note ---
Date of Service August 25, 2019 Assessment & Plan (1) Osteomyelitis of lumbar spine: Patient is remained afebrile. He is neurologically intact. I discussed with him maintaining IV antibiotics and allowing this to heal on its own. He does have some evidence of stenosis in lumbar spine but the surgical procedure would be quite extensive nature and would like to avoid this if at all possible. We will order a brace for additional comfort measures and consult pain management for further guidance regarding his pain control. Present on Admission?: Yes Subjective Patient complaining of back pain that does radiate into his groin. He has however been ambulating regularly and no clear radicular complaints. Physical Exam Physical Exam: Patient sits up and stands without difficulty good strength testing. Results & Data Vital Signs (Past 12 Hours) Vital Signs Temp Pulse Resp BP Pulse Ox 08/25/19 07:42 36.7 C 65 16 129/73 98
[2019-08-25] MEDS: CEFEPIME 2,000 MG in SYRINGE 7.5 ML IV SCH ×2 (12:06→23:29)
--- NOTE | 2019-08-25 15:03 | Infectious Disease Progress Nt ---
Date of Service August 25, 2019 Assessment & Plan (1) Vertebral osteomyelitis, acute: continue abx, follow culture results, negtive to date suspet will remain negative. no plan for OR. would suggest 6 weeks IV cefepime and vanco as no + culture to guide therapy. will need weekly cbc, cmp, esr, vanco trough while on abx, maintain 15-20. Subjective pt remains afebrile. on vanco and cefepime. tolerting well. no cbc, cret 0.8. blood cultures remain negative. ortho following, no plan for OR Results & Data Vital Signs (Past 12 Hours) Vital Signs Temp Pulse Resp BP Pulse Ox 08/25/19 07:42 36.7 C 65 16 129/73 98 Laboratory Results Microbiology 08/22/19 20:45 Blood Aerobic Blood Culture - Preliminary No growth in Aerobic bottle after 48 hours. 08/22/19 20:45 Blood Anaerobic Blood Culture - Preliminary No growth in Anaerobic bottle after 48 hours. 08/22/19 20:45 Blood Aerobic Blood Culture - Preliminary No growth in Aerobic bottle after 48 hours. 08/22/19 20:45 Blood Anaerobic Blood Culture - Preliminary No growth in Anaerobic bottle after 48 hours. PG Care Time/CCT Total # of Minutes Spent Total Time Spent with Patient: Total time spent is greater than 50% in coordination of care (as documented) at patient's floor/unit and/or counseling patient:
--- NOTE | 2019-08-25 15:13 | Pain Management Consultation ---
Date of Consultation August 25, 2019 Assessment & Plan (1) Osteomyelitis of lumbar spine: Present on Admission?: Yes (2) Lumbar discitis: Present on Admission?: Yes (3) Lumbar radiculopathy: Present on Admission?: Yes (4) History of back surgery: 1. Patient is not a candidate for interventional treatment due to active osteomyelitis 2. Will initiate gabapentin 300 mg nightly progressing to 3 times daily over the next 3 days. Side effects versus benefits discussed. Consider further titration pending response. 3. Will initiate baclofen 10 mg 3 times daily. Side effects risk benefits discussed. 4. Will increase oxycodone to 10 mg every 4 hours PRN for breakthrough pain to assess efficacy. Side effects benefits discussed. He was encouraged to r eserve IV hydromorphone for pain not well controlled with oxycodone. 5. Patient being fitted for a back brace at this time with encouraged use with ambulatory activity Thank you for allowing us to participate in the care of Mr. Jaramillo. Present on Admission?: Yes History of Present Illness Reason for Consultation: Intractable back pain Requesting Physician: Yoseph Cooper DO Attending Physician: Jared Dorman MD History of Present Illness Mr. Jaramillo is a 39 year old white male admitted with complaints of intractable low back pain with radiation to the hips, groin, testicle/scrotal area and thighs in non-dermatomal patterns. Pain mostly travels to left posterior thigh, not travelling below the level of the knee. Patient reported onset in May occurring after lifting some heavy luggage. Patient has been found to have discitis and associated osteomyelitis at the L2 and L3 levels. Patient reports no history of trauma, fevers, night sweats or chills. He was evasive when questioned about IV drug use, but ultimately denied use. He does have history of L4-S1 fusion approximately 17 years ago. He denies any weaknesses in the lower extremities, bowel/bladder incontinence or saddle anesthesias. He reports minimal pain relief from IV hydromorphone and no pain relief from oxyIR 5 mg. He reports allergies to fentanyl, tramadol and ketorolac. He is ambulating in the hallways. Poor sleep quality and quantity due to the pain. Increased pain which he describes as sharp with any position or activity for any length of time. Plan of care discussed with Dr. Monson. Pain Assessment Full Body Front + Back: 1. Axial lumbosacral spine 2. Right hip/groin 3. Left hip/groin 4. Left posterior thigh Pain scale - at its best (0-10): 6 Pain scale - at its worst (0-10): 9 Allergies Allergy/AdvReac Type Severity Reaction Status Date / Time fentanyl Allergy Severe ANAPHYLAXIS Verified 08/22/19 23:06 propoxyphene Allergy Intermediate TONGUE Verified 08/22/19 23:06 NUMBNESS tramadol Allergy Intermediate swelling Verified 08/22/19 23:06 ketorolac AdvReac Intermediate FACIAL Verified 08/22/19 23:06 SWELLING/THROAT SWELLING Home Medications Home Medications Medication Instructions Recorded Confirmed Type acetaminophen [Tylenol Extra 1,000 mg PO Q6H PRN 08/22/19 08/22/19 History Strength] cyclobenzaprine 20 mg PO TID PRN #15 tab 08/22/19 08/22/19 Rx Pain History Pain Intensity Pain scale - at its best (0-10): 6 Pain scale - at its worst (0-10): 9 Patient History Medical History Osteoarthritis Spinal stenosis Temporomandibular joint disorder Surgical History Fusion of spine LUMBAR History of anesthesia reaction BP DROPS History of back surgery (Resolved) History of tooth extraction Hx of cholecystectomy (Resolved) S/P nasal surgery RE-SET D/T FRACTURE Family History Grandfather (Maternal) Family history of diabetes mellitus Social History Preferred Language: Sami Communication Ability: Effective 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 Speech and thought process appropriate. Mood and affect appropriate. Cognition intact. Patient accompanied by his mother. Head: Normocephalic and atraumatic. Eyes: Pupils equal round reactive to light. Neck: Supple without adenopathy and full range of motion. Abdomen: Soft and nondistended. No organomegaly. Bowel sounds active. Back/spine: Loss of lumbar lordosis. Well-healed midline incision over the lower lumbar spine. Hyperalgesic response to palpation over the entire lumbar region which is nonfocal to the midline, facet joint or SI joint region. Limited range of motion with apprehensive movement. Lower extremities: Any attempted SLR in the sitting position aggravated axial low back pain bilaterally. Strength testing rated at a 5/5 and equal without focal deficit. Sensation intact without deficit. No evidence of edema, erythema or skin breakdown. Neurologic: Cranial nerves grossly intact. Ambulatory function. Slowed and slightly guarded. Results Diagnostic Review MRI: non enhanced and reports reviewed MRI Findings: BERTO JARAMILLO 39 M 1980 [place], [place] [phone] Magnetic Resonance Report Patient: BERTO JARAMILLOAdmit Date: 08/22/19 MR#: [id number]: [address] [facility] Acct ID:[id number]: Date: 1980[facility] Zip: [place] [address] Age: 39Location: 3W Sex: M Room/Bed: [facility] Att Phy: Jared Dorman MDDiagnosis: SPINE OSTEOMYELITIS Lucero Phy: PCP,NOService Date: 08/23/19 Fam Phy: PCP,NOInterpreting Phy: Nathen Boothe MD Admit Phy: Aron Arias MD Ordering Phy: Jared Dorman MD cc: ~ MR lumbar spine wo con CLINICAL HISTORY: 39 years-old Male presenting with discitis osteomyelitis on CT, possible intracanalicular phlegmon at L2-3 MRI for further evaluation, lumbar pain for 2 months, no history of trauma, history of spinal fusion 17 years ago, left foot numbness. TECHNIQUE: Multisequence, multiplanar MR imaging of the lumbar spine was performed without the use of intravenous contrast. IV contrast: None. COMPARISON: CT lumbar spine from 08/22/2019. FINDINGS: Localizer images: Unremarkable. Straightening of normal lumbar lordosis. Diffuse bony edema throughout L2 and L3. Associated diffuse T1 hypointensity of L2 and T1 hypointensity centered at the superior endplate of L3 occupying approximately 50% of the vertebral body. Abnormal fluid within the L2-3 intervertebral disc. A disc bulge at this level results in moderate to severe effacement of the ventral thecal sac with trace residual CSF evident. Extensive paraspinal edema at this level, left greater than right. There is associated edema with upward lifting of the posterior longitudinal ligament. There is no convincing evidence of an epidural collection allowing for the lack of intravenous contrast on this exam. Associated moderate to severe bilateral neural foraminal narrowing. Redemonstration of posterior bilateral transpedicular screw and mary fixation of L4-S1 with laminectomy defects of L4 and L5. Adequate posterior decompression. A llowing for susceptibility artifact, no neural foraminal narrowing. Interbody spacers noted at L4-5 and L5-S1. Grossly normal bone marrow signal at these levels. No fluid collection in the operative bed, expected signal intensity changes in the operative bed. Mild disc bulge at L3-4 consistent with adjacent level degenerative change. This results in moderate effacement of the ventral thecal sac and lateral recesses. Abutment of the transiting L4 nerve root suspected. Moderate bilateral neural f oraminal narrowing. Possible mass effect on the exiting L3 nerve roots. Spinal cord terminates in good position at L1. Cauda equina crowding to moderate to severe degree at L2-3 though otherwise normal. No evidence of a buckled morphology to suggest cauda equina impingement. Flow voids within the v asculature preserved. Remaining visualized soft tissues within normal limits. IMPRESSION: 1. Findings highly suspicious for infectious discitis osteomyelitis at L2-3. Disc bulge at this level is related to discitis and results in moderate to severe spinal canal stenosis. No convincing evidence of cauda equina impingement. No convincing evidence of an epidural abscess or epidural extension of infection. 2. Reactive edema along the ventral spinal canal at L2 and L3 with up lifting of the posterior longitudinal ligament. 3. Moderate to severe bilateral neural foraminal narrowing at L2-3. 4. Posterior lumbar fusion at L4-S1, interbody spacers, and L4-5 laminectomies. 5. Adjacent level degenerative change at L3-4 with moderate spinal canal stenosis and moderate bilateral neural foraminal narrowing. Possible mass effect on exiting L3 nerve roots. The report will be called/faxed according to standard departmental protocol for a critical finding. ACT 112: Negative or not required by law. Electronically signed by: Nathen Boothe M.D. 08/23/2019 2:51 PM Dictated: 08/23/19 1441 Transcribed: 08/23/[address]: non enhanced and reports reviewed [phone] [facility] Scan Report Patient: BERTO JARAMILLOAdmit Date: 08/22/19 MR#: [id number]: [address] Acct ID:[id number]: Date: 1980ty Zip: [place] [address] Age: 39Location: ED Sex: M Room/Bed: Att Phy:Diagnosis: BACK,HIP,LEG PAIN Lucero Phy: PCP,NOService Date: 08/22/19 Fam Phy: PCP,NOInterpreting Phy: Ankit Del Rio MD Admit Phy: Ordering Phy: Tsering Ball PA-C cc: ~ CT OF THE LUMBAR SPINE WITHOUT CONTRAST CLINICAL HISTORY: Low back pain down legs ? incontinence COMPARISON STUDY: Lumbar spine radiographs June 01, 2019. TECHNIQUE: Axial images of the lumbar spine were obtained without IV contrast. Sagittal and coronal reconstructions were viewed. Automated exposure control was utilized for the study. A dose lowering technique was utilized adhering to the principles of ALARA. FINDINGS: For purposes of numbering on this exam, the L5-S1 disc space is assigned to axial image 338 of [id number]. The patient is status post L4-L5 and L5-S1 discectomies with interbody spacer placement. Posterior decompression is noted with bilateral pedicle screws at the L4, L5 and S1 levels. The hardware is intact. Note is made of erosion of the inferior endplate of L2 and the superior endplate of L3 with disc space narrowing and paravertebral infiltration. This is new since CT of July 20, 2018. Evaluation is suboptimal on this unenhanced CT. Intracanalicular density is noted at the L2-L3 level. No additional acute findings are noted within the lumbar spine by CT. There is no fracture or suspicious lesion. Sigmoid diverticulosis with sigmoid colon wall thickening is partially imaged on this exam. There is mild pericolonic infiltration. Similar findings were shown on CT of July 20, 2018. IMPRESSION: 1. Findings consistent with L2-L3 discitis with associated osteomyelitis. Suboptimal evaluation of the canal given CT technique. Intracanalicular density at the L2-L3 level could reflect a phlegmon or abscess. If possible, an MRI of the lumbar spine with and without contrast is recommended. Findings discussed with Tsering Ball at time of dictation. 2. Status post L4-L5 and L5-S1 discectomies with posterior decompression and bilateral pedicle screw fusion. 3. Persistent mild acute sigmoid diverticulitis, partially imaged on this exam. This was shown on CT of July 20, 2018. A follow-up nonemergent colonoscopy is recommended to exclude the possibility of an underlying neoplasm. Electronically signed by: Ankit Del Rio M.D. 08/22/2019 8:10 PM Dictated: 08/22/191955 Transcribed: 08/22/191955
--- NOTE | 2019-08-25 17:27 | Hospitalist Progress Note ---
Date of Service August 25, 2019 Assessment & Plan (1) Osteomyelitis of lumbar spine: (2) Lumbar discitis: Lumbar discitis/osteomyelitis --MRI Lumbar Spine:Findings highly suspicious for infectious discitis osteomyelitis at L2-3. Disc bulge at this level is related to discitis and results in moderate to severe spinal canal stenosis. No convincing evidence of cauda equina impingement. No convincing evidence of an epidural abscess or epidural extension of infection. Reactive edema along the ventral spinal canal at L2 and L3 with up lifting of the posterior longitudinal ligament. Moderate to severe bilateral neural foraminal narrowing at L2-3. Posterior lumbar fusion at L4-S1, interbody spacers, and L4-5 laminectomies. Adjacent level degenerative change at L3-4 with moderate spinal canal stenosis and moderate bilateral neural foraminal narrowing. Possible mass effect on exiting L3 nerve roots. --Unclear source of infection. Urine drug screen positive for opiates--Patient admits to taking PO Morphine prior to admission --Continue IV vancomycin, cefepime Day#4 --Blood cultures:No growth to date --Appreciate orthopedics, ID, Pain Management input --Added baclofen, Neurontin for better pain control --Minimize narcotic use as able --Received IV fluids --Will likely need 6-week course of IV antibiotics, PICC line placement --Continue back brace for support (3) Tobacco use disorder: Smoking cessation counseling DVT Px: SCDs, Lovenox SQ Ambulate Subjective Patient seen and examined at bedside Reports lower back pain radiating to groin, lower extremity No other complaints Denies any chest pain, shortness of breath, dizziness, nausea, abd pain Review of Systems Review of Systems: All systems reviewed & are unremarkable except as noted in HPI & below Physical Exam Physical Exam: Physical Exam: Vitals signs as noted above General Appearance:Moderately built and nourished, no apparent distress Head: normocephalic, Atraumatic Eyes: normal inspection, EOMI Neck: supple, Trachea midline Respiratory/Chest: Normal breath sounds, CTA Cardiovascular: S1, S2, No murmur Abdomen/GI:Soft, Non tender, Bowel sounds present Extremities/Musculoskelatal:normal inspection, no edema Spine: Lumbar spinal/paraspinal tenderness Neurologic/Psych:AAOX3, grossly no focal neurological deficits Skin: normal color, warm Results & Data Vital Signs (Past 12 Hours) Vital Signs Temp Pulse Resp BP Pulse Ox 12/20/19 16:14 36.8 C 65 17 115/74 99 08/25/19 07:42 36.7 C 65 16 129/73 98 Laboratory Results BMP 08/25/19 07:35 Creatinine 0.80
[2019-08-25] MEDS ORDERED: GABAPENTIN 300 MG CAP PO SCH (21:00)
[2019-08-25] MEDS: BACLOFEN 10 MG TAB PO SCH (21:17)
[2019-08-25] MEDS: LIDOCAINE 5% 1 PATCH TD SCH (22:09)
[2019-08-26] MEDS: OXYCODONE HCL IR 5 MG TAB (IMMEDIATE RELEASE) PO PRN ×5 (01:37→21:12)
[2019-08-26] MEDS: HYDROmorphone INJ 0.5 MG/0.5 ML SYR IV PRN ×5 (03:30→19:50)
[2019-08-26] MEDS ORDERED: VANCOMYCIN TROUGH ONE (07:30)
[2019-08-26] MEDS: GABAPENTIN 300 MG CAP PO SCH ×2 (07:32→21:26)
[2019-08-26] MEDS: ENOXAPARIN INJ 40 MG/0.4 ML SYR SQ SCH (07:33)
[2019-08-26] MEDS: BACLOFEN 10 MG TAB PO SCH ×3 (07:33→21:26)
[2019-08-26] MEDS: VANCOMYCIN HCL 1,500 MG in SODIUM CHLORIDE 0.9% 500 ML IV SCH ×2 (08:14→16:12)
[2019-08-26] MEDS: CEFEPIME 2,000 MG in SYRINGE 7.5 ML IV SCH (11:58)
--- NOTE | 2019-08-26 15:53 | Pharmacy Report ---
Pharmacy Abx Dose Short Note - Date of Service August 26, 2019 - Assessment & Plan Laboratory Tests 08/26/19 06:57 Vancomycin Trough 19.0 Assessment 39 year old M receiving Vancomycin 1500mg IV q8h and Cefepime 2gm IV q12h for treatment of osteomyelitis of the spine. Blood cultures x2 show no growth. Day #5 of antimicrobial therapy. Plan Vancomycin * Trough level of 19.0 mcg/mL is therapeutic * Continue dose of Vanc 1500mg IV every 8 hours * Goal trough level for Osteomyelitis: 15 to 20 mcg/mL * Trough level ordered for: 08/28/19 at 0730 Pharmacy will continue to follow and will adjust dose/frequency as necessary. Thank you.
--- NOTE | 2019-08-26 15:56 | Hospitalist Progress Note ---
Date of Service August 26, 2019 Assessment & Plan (1) Osteomyelitis of lumbar spine: (2) Lumbar discitis: Lumbar discitis/osteomyelitis --MRI Lumbar Spine:Findings highly suspicious for infectious discitis osteomyelitis at L2-3. Disc bulge at this level is related to discitis and results in moderate to severe spinal canal stenosis. No convincing evidence of cauda equina impingement. No convincing evidence of an epidural abscess or epidural extension of infection. Reactive edema along the ventral spinal canal at L2 and L3 with up lifting of the posterior longitudinal ligament. Moderate to severe bilateral neural foraminal narrowing at L2-3. Posterior lumbar fusion at L4-S1, interbody spacers, and L4-5 laminectomies. Adjacent level degenerative change at L3-4 with moderate spinal canal stenosis and moderate bilateral neural foraminal narrowing. Possible mass effect on exiting L3 nerve roots. --Unclear source of infection. Urine drug screen positive for opiates--Patient admits to taking PO Morphine prior to admission --Continue IV vancomycin, cefepime Day#5 --Blood cultures:No growth to date --Appreciate orthopedics, ID, Pain Management input --Added baclofen, Neurontin for better pain control --Minimize narcotic use as able --Received IV fluids --Will need 6-week course of IV antibiotics --PICC line placement requested --Continue back brace for support --Case management to help with discharge planning (3) Tobacco use disorder: Smoking cessation counseling DVT Px: SCDs, Lovenox SQ Ambulate Subjective Patient seen and examined at bedside States having no significant change--back pain Has been using brace for ambulation Denies any chest pain, shortness of breath, dizziness, nausea, abd pain Discussed with ID today Consult for PICC line placement Review of Systems Review of Systems: All systems reviewed & are unremarkable except as noted in HPI & below Physical Exam Physical Exam: Physical Exam: Vitals signs as noted above General Appearance:Moderately built and nourished, no apparent distress Head: normocephalic, Atraumatic Eyes: normal inspection, EOMI Neck: supple, Trachea midline Respiratory/Chest: Normal breath sounds, CTA Cardiovascular: S1, S2, No murmur Abdomen/GI:Soft, Non tender, Bowel sounds present Extremities/Musculoskelatal:normal inspection, no edema Spine: Lumbar spinal/paraspinal tenderness Neurologic/Psych:AAOX3, grossly no focal neurological deficits Skin: normal color, warm Results & Data Vital Signs (Past 12 Hours) Vital Signs Temp Pulse Resp BP Pulse Ox 08/26/19 15:35 36.9 C 84 16 128/79 97 08/26/19 07:10 36.7 C 70 16 108/66 96
[2019-08-26] MEDS: LIDOCAINE 5% 1 PATCH TD SCH (21:27)
[2019-08-27] MEDS: CEFEPIME 2,000 MG in SYRINGE 7.5 ML IV SCH ×3 (00:05→23:56)
[2019-08-27] MEDS: VANCOMYCIN HCL 1,500 MG in SODIUM CHLORIDE 0.9% 500 ML IV SCH ×4 (00:05→23:57)
[2019-08-27] MEDS: HYDROmorphone INJ 0.5 MG/0.5 ML SYR IV PRN ×7 (00:06→20:16)
[2019-08-27] MEDS: OXYCODONE HCL IR 5 MG TAB (IMMEDIATE RELEASE) PO PRN ×5 (01:21→21:42)
[2019-08-27] MEDS: GABAPENTIN 300 MG CAP PO SCH ×3 (08:48→19:43)
[2019-08-27] MEDS: BACLOFEN 10 MG TAB PO SCH ×3 (08:48→19:43)
[2019-08-27] MEDS: ENOXAPARIN INJ 40 MG/0.4 ML SYR SQ SCH (08:50)
--- NOTE | 2019-08-27 13:42 | Hospitalist Progress Note ---
Date of Service August 27, 2019 Assessment & Plan (1) Osteomyelitis of lumbar spine: (2) Lumbar discitis: Lumbar discitis/osteomyelitis --MRI Lumbar Spine:Findings highly suspicious for infectious discitis osteomyelitis at L2-3. Disc bulge at this level is related to discitis and results in moderate to severe spinal canal stenosis. No convincing evidence of cauda equina impingement. No convincing evidence of an epidural abscess or epidural extension of infection. Reactive edema along the ventral spinal canal at L2 and L3 with up lifting of the posterior longitudinal ligament. Moderate to severe bilateral neural foraminal narrowing at L2-3. Posterior lumbar fusion at L4-S1, interbody spacers, and L4-5 laminectomies. Adjacent level degenerative change at L3-4 with moderate spinal canal stenosis and moderate bilateral neural foraminal narrowing. Possible mass effect on exiting L3 nerve roots. --Unclear source of infection. Urine drug screen positive for opiates--Patient admits to taking PO Morphine prior to admission --Continue IV vancomycin, cefepime Day#6 --Blood cultures:No growth to date --Appreciate orthopedics, ID, Pain Management input --Added baclofen, Neurontin for better pain control --Minimize narcotic use as able --Received IV fluids --Will need 6-week course of IV antibiotics --PICC line placement on 07/27/19 --Continue back brace --Plan to discharge when outpatient Antibiotics arranged (3) Tobacco use disorder: Smoking cessation counseling DVT Px: SCDs, Lovenox SQ Ambulate Subjective Patient seen and examined at bedside Back pain is slightly better Has been able ambulate better with brace Denies any chest pain, shortness of breath, dizziness, nausea, abd pain No other complaints Review of Systems Review of Systems: All systems reviewed & are unremarkable except as noted in HPI & below Physical Exam Physical Exam: Physical Exam: Vitals signs as noted above General Appearance:Moderately built and nourished, no apparent distress Head: normocephalic, Atraumatic Eyes: normal inspection, EOMI Neck: supple, Trachea midline Respiratory/Chest: Normal breath sounds, CTA Cardiovascular: S1, S2, No murmur Abdomen/GI:Soft, Non tender, Bowel sounds present Extremities/Musculoskelatal:normal inspection, no edema Spine: Lumbar spinal/paraspinal tenderness Neurologic/Psych:AAOX3, grossly no focal neurological deficits Skin: normal color, warm Results & Data Vital Signs (Past 12 Hours) Vital Signs Temp Pulse Resp BP Pulse Ox 08/27/19 07:41 37.0 C 69 16 114/72 96
[2019-08-27 15:43] LABS: Creatinine Clr Calc Pharmacy 133.7 ml/min; Est GFR (African American) 130.3; Est GFR (Non-African American) 112.4
[2019-08-27] MEDS: LIDOCAINE 5% 1 PATCH TD SCH (21:25)
[2019-08-28] MEDS: HYDROmorphone INJ 0.5 MG/0.5 ML SYR IV PRN ×7 (00:44→22:07)
[2019-08-28] MEDS: OXYCODONE HCL IR 5 MG TAB (IMMEDIATE RELEASE) PO PRN ×5 (02:52→21:10)
[2019-08-28] MEDS ORDERED: VANCOMYCIN TROUGH ONE (07:30)
[2019-08-28 08:19] LABS: Creatinine Clr Calc Pharmacy 142.3 ml/min; Est GFR (African American) 133.7; Est GFR (Non-African American) 115.3
[2019-08-28] MEDS: CEFEPIME 2,000 MG in SYRINGE 7.5 ML IV SCH ×2 (08:23→16:10)
[2019-08-28] MEDS: VANCOMYCIN HCL 1,500 MG in SODIUM CHLORIDE 0.9% 500 ML IV SCH ×2 (08:23→16:15)
[2019-08-28] MEDS: GABAPENTIN 300 MG CAP PO SCH ×3 (08:30→21:08)
[2019-08-28] MEDS: BACLOFEN 10 MG TAB PO SCH ×3 (08:30→21:08)
[2019-08-28] MEDS: ENOXAPARIN INJ 40 MG/0.4 ML SYR SQ SCH (08:31)
--- NOTE | 2019-08-28 10:08 | Pharmacy Report ---
Pharmacy Abx Dose Short Note - Date of Service August 28, 2019 - Assessment & Plan Assessment 39 year old M receiving VANCOMYCIN AND CEFEPIME for treatment of OSTEOMYELITIS Day # of antimicrobial therapy. Plan Vancomycin * Trough level of 14.2 mcg/mL is subtherapeutic.... this is surprising as no other factors have changed in patient care. * Continue dose of 1500 mg IV every 8 hours as uncertain how to interpret result. Want to continue q8 dosing to allow for ease in outpatient setting. Uncertain if this is a "fluke" * Goal trough level for osteomyelitis : 15 to 20 mcg/mL * Trough ordered for: 08/29/19 prior to 0800 Pharmacy will continue to follow and will adjust dose/frequency as necessary. Thank you.
[2019-08-28] MEDS ORDERED: DAPTOMYCIN CONSULT ACTIVE PRN (16:47)
--- NOTE | 2019-08-28 18:29 | Hospitalist Progress Note ---
Date of Service August 28, 2019 Assessment & Plan (1) Osteomyelitis of lumbar spine: (2) Lumbar discitis: Lumbar discitis/osteomyelitis --MRI Lumbar Spine:Findings highly suspicious for infectious discitis osteomyelitis at L2-3. Disc bulge at this level is related to discitis and results in moderate to severe spinal canal stenosis. No convincing evidence of cauda equina impingement. No convincing evidence of an epidural abscess or epidural extension of infection. Reactive edema along the ventral spinal canal at L2 and L3 with up lifting of the posterior longitudinal ligament. Moderate to severe bilateral neural foraminal narrowing at L2-3. Posterior lumbar fusion at L4-S1, interbody spacers, and L4-5 laminectomies. Adjacent level degenerative change at L3-4 with moderate spinal canal stenosis and moderate bilateral neural foraminal narrowing. Possible mass effect on exiting L3 nerve roots. --Unclear source of infection. Urine drug screen positive for opiates--Patient admits to taking PO Morphine prior to admission --Continue IV vancomycin, cefepime Day#7>>> transition to daptomycin, cefepime --Blood cultures:No growth to date --Appreciate orthopedics, ID, Pain Management input --Added baclofen, Neurontin for better pain control --Minimize narcotic use as able --Received IV fluids --Will need 6-week course of IV antibiotics --PICC line placement on 07/27/19 --Continue back brace for support --Plan to discharge when outpatient Antibiotics arranged --Case management consulted for discharge planning (3) Tobacco use disorder: Smoking cessation counseling DVT Px: SCDs, Lovenox SQ Ambulate CODE STATUS Full code Disposition Plan to discharge when outpatient IV antibiotics arranged Subjective Patient seen and examined at bedside Ambulating in hallway this morning Continues to have lower back pain Denies any chest pain, shortness of breath, dizziness, nausea, abd pain Offers no other complaints Review of Systems Review of Systems: All systems reviewed & are unremarkable except as noted in HPI & below Physical Exam Physical Exam: Physical Exam: Vitals signs as noted above General Appearance:Moderately built and nourished, no apparent distress Head: normocephalic, Atraumatic Eyes: normal inspection, EOMI Neck: supple, Trachea midline Respiratory/Chest: Normal breath sounds, CTA Cardiovascular: S1, S2, No murmur Abdomen/GI:Soft, Non tender, Bowel sounds present Extremities/Musculoskelatal:normal inspection, no edema Spine: Lumbar spinal/paraspinal tenderness, +Brace Neurologic/Psych:AAOX3, grossly no focal neurological deficits Skin: normal color, warm Results & Data Vital Signs (Past 12 Hours) Vital Signs Temp Pulse Resp BP Pulse Ox 08/28/19 14:57 37 C 91 H 16 124/79 90 08/28/19 07:18 36.8 C 83 18 132/77 97 Laboratory Results BMP 08/28/19 07:32 Creatinine 0.78
[2019-08-28] MEDS: DAPTOmycin 475 MG in SYRINGE 0 ML IV SCH (21:02)
[2019-08-28] MEDS: LIDOCAINE 5% 1 PATCH TD SCH (21:08)
[2019-08-29] MEDS: CEFEPIME 2,000 MG in SYRINGE 7.5 ML IV SCH ×3 (00:15→15:30)
[2019-08-29] MEDS: HYDROmorphone INJ 0.5 MG/0.5 ML SYR IV PRN ×3 (01:24→13:09)
[2019-08-29] MEDS: OXYCODONE HCL IR 5 MG TAB (IMMEDIATE RELEASE) PO PRN ×4 (02:16→15:28)
[2019-08-29] MEDS: ENOXAPARIN INJ 40 MG/0.4 ML SYR SQ SCH (08:49)
[2019-08-29] MEDS: BACLOFEN 10 MG TAB PO SCH ×2 (08:49→13:12)
[2019-08-29] MEDS: GABAPENTIN 300 MG CAP PO SCH ×2 (08:49→13:12)
--- NOTE | 2019-08-29 10:59 | Hospitalist Progress Note ---
Date of Service August 29, 2019 Assessment & Plan (1) Osteomyelitis of lumbar spine: (2) Lumbar discitis: Lumbar discitis/osteomyelitis --MRI Lumbar Spine:Findings highly suspicious for infectious discitis osteomyelitis at L2-3. Disc bulge at this level is related to discitis and results in moderate to severe spinal canal stenosis. No convincing evidence of cauda equina impingement. No convincing evidence of an epidural abscess or epidural extension of infection. Reactive edema along the ventral spinal canal at L2 and L3 with up lifting of the posterior longitudinal ligament. Moderate to severe bilateral neural foraminal narrowing at L2-3. Posterior lumbar fusion at L4-S1, interbody spacers, and L4-5 laminectomies. Adjacent level degenerative change at L3-4 with moderate spinal canal stenosis and moderate bilateral neural foraminal narrowing. Possible mass effect on exiting L3 nerve roots. --Unclear source of infection. Urine drug screen positive for opiates--Patient admits to taking PO Morphine prior to admission --Continue IV vancomycin, cefepime Day#7>>> transition to daptomycin, cefepime--needs to complete 5 more weeks of therapy upon discharge --Blood cultures:No growth to date --Appreciate orthopedics, ID, Pain Management input --Added baclofen, Neurontin for better pain control --Minimize narcotic use as able --Received IV fluids --PICC line placement on 07/27/19 --Continue back brace for support --Plan to discharge when outpatient Antibiotics arranged --Case management consulted for discharge planning --Needs follow up with Orthopedics upon discharge (3) Tobacco use disorder: Smoking cessation counseling DVT Px: SCDs, Lovenox SQ Ambulate CODE STATUS Full code Disposition Plan to home with home health Subjective Patient seen and examined at bedside No significant change from yesterday Reports lower back pain--unchanged Denies any chest pain, shortness of breath, dizziness, nausea, abd pain No new complaints Review of Systems Review of Systems: All systems reviewed & are unremarkable except as noted in HPI & below Physical Exam Physical Exam: Physical Exam: Vitals signs as noted above General Appearance:Moderately built and nourished, no apparent distress Head: normocephalic, Atraumatic Eyes: normal inspection, EOMI Neck: supple, Trachea midline Respiratory/Chest: Normal breath sounds, CTA Cardiovascular: S1, S2, No murmur Abdomen/GI:Soft, Non tender, Bowel sounds present Extremities/Musculoskelatal:normal inspection, no edema Spine: Lumbar spinal/paraspinal tenderness, +Brace Neurologic/Psych:AAOX3, grossly no focal neurological deficits Skin: normal color, warm Results & Data Vital Signs (Past 12 Hours) Vital Signs Temp Pulse Resp BP Pulse Ox 08/29/19 07:08 36.7 C 71 16 106/63 98
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
[2019-08-29] MEDS: DAPTOmycin 475 MG in SYRINGE 0 ML IV SCH (15:29)
== END 2019-08-29 16:01 | disposition home health service (06) | DRG 540 ==
LOC: ED 18:21 → 3W 22:25

== ENCOUNTER 2019-09-09 13:57 | Inpatient (IN) ==
[2019-09-09] MEDS ORDERED: HYDROmorphone INJ 1 MG/ML SYRINGE IV PRN (14:31)
[2019-09-09] MEDS ORDERED: SODIUM CHLORIDE 0.9% 500 ML IV SCH (14:45)
[2019-09-09] MEDS ORDERED: DAPTOmycin 475 MG in SYRINGE 0 ML IV STA (15:03)
[2019-09-09] MEDS ORDERED: CEFEPIME 2,000 MG in SYRINGE 7.5 ML IV SCH (15:15)
[2019-09-09] MEDS ORDERED: LORazepam 2 MG/4 ML VIAL IV STA (15:20)
[2019-09-09 15:26] LABS: Basophils # (auto) 0.02 K/uL (0-0.2); Basophils % (auto) 0.3 %; Eosinophils # (auto) 0.13 K/uL (0-0.5); Eosinophils % (auto) 1.7 %; Hematocrit (blood only) 44.3 % (42-52); Hemoglobin 14.6 g/dL (14.0-18.0); Immature Granulocytes # (auto) 0.01 K/uL (0.00-0.02); Immature Granulocytes % (auto) 0.1 %; Lymphocytes # (auto) 1.63 K/uL (1.2-3.4); Lymphocytes % (auto) 21.4 %; Mean Corpuscular Hemoglobin 29.1 pg (25-34); Mean Corpuscular Volume 88.4 fL (80-100); Mean Platelet Volume 10.8 fL (7.4-10.4); Monocytes # (auto) 0.56 K/uL (0.11-0.59); Monocytes % (auto) 7.3 %; Neutrophils # (auto) 5.28 K/uL (1.4-6.5); Neutrophils % (auto) 69.2 %; Platelet Count 260 K/uL (130-400); RDW Coefficient of Variation 15.4 % (11.5-14.5); RDW Standard Deviation 49.5 fL (36.4-46.3); Red Blood Count 5.01 M/uL (4.7-6.1); White Blood Count 7.63 K/uL (4.8-10.8)
--- NOTE | 2019-09-09 15:32 | Emergency Department Note ---
ED Visit Note This patient was seen in concert with Dr. Melgar and we discussed and agreed upon the history, physical, assessment, and plan. See attending's note for details. . Resident Activity Tracking Resident Involvement: Resident Care Provided Care Provided: Adult ED
[2019-09-09 15:45] LABS: BUN Creatinine Ratio 9.3 (10-20); Calcium 9.8 mg/dl (8.5-10.1); Creatinine Clr Calc Pharmacy 146.1 ml/min; Est GFR (African American) 135.1; Est GFR (Non-African American) 116.6
--- NOTE | 2019-09-09 16:15 | Emergency Department Note ---
Entered by Pascale Olivares acting as a scribe for History of Present Illness General Chief complaint: Back Injury/Pain Stated complaint: BACK PAIN - PICK LINE Time Seen by Provider: 09/09/19 14:08 Source: patient History of Present Illness Provider complaint: back pain Onset (ago): hour(s) 4 Location: back Maximum Pain Intensity: 10 Current Pain Intensity: 10 Quality: + other (back pain) Associated symptoms: + other (Positive loss of bowel control; Positive lower ex tremity pain with movement; Negative ambulatory difficulty; ) The patient, who is a 39 year old male with a medical history of lumbar radiculopathy, osteomyelitis and lumbar discitis, presents to the Emergency Room with complaints of back pain that started two hours ago. The patient expresses while he was trying to leave his house he felt extreme pain in his back and lost control of bowels. The patient ranks his current pain a 10 out of 10 in severity. The patient states that he is able to walk and move his legs but it very painful. The patient reports taking his pain medication this morning at 0800.The patient explains that at 1000 he was unable to administer his antibio tics through his PICC line. The patient reports doing two saline line flushes with no success. The patient confirms that he did not have his antibiotics today. The patient states that he also had difficulty administering his antibiotics last night. Home Medications Home Medications Medication Instructions Recorded Confirmed Type baclofen 10 mg PO TID #30 tab 08/29/19 09/09/19 Rx gabapentin 300 mg PO TID #90 cap 08/29/19 09/09/19 Rx oxycodone 10 mg PO BID PRN #15 tab 08/29/19 09/09/19 Rx cefepime [Maxipime] 0 g IM Q12H 09/09/19 09/09/19 History oxycodone-acetaminophen 1 tab PO Q6H 09/09/19 09/09/19 History Allergies Allergy/AdvReac Type Severity Reaction Status Date / Time fentanyl Allergy Severe ANAPHYLAXIS Verified 08/22/19 23:06 propoxyphene Allergy Intermediate TONGUE Verified 08/22/19 23:06 NUMBNESS tramadol Allergy Intermediate swelling Verified 08/22/19 23:06 ketorolac AdvReac Intermediate FACIAL Verified 08/22/19 23:06 SWELLING/THROAT SWELLING Past Med/Surg History Medical History Lumbar discitis Lumbar radiculopathy (Acute) Osteoarthritis Osteomyelitis of lumbar spine (Acute) Spinal stenosis Temporomandibular joint disorder Tobacco use disorder (Acute) Surgical History Fusion of spine LUMBAR History of anesthesia reaction BP DROPS History of back surgery (Resolved) History of tooth extraction Hx of cholecystectomy (Resolved) S/P nasal surgery RE-SET D/T FRACTURE Family History Grandfather (Maternal) Family history of diabetes mellitus Social History Preferred Language: Tajik Communication Ability: Effective Aquatic Facility Manager Required: No Beliefs That Will Affect Care: None Current Living Situation: Spouse Feels Safe at Home: Yes Smoking Status: Current every day smoker Tobacco Type: cigarettes ; Cigarettes Per Day: pack ; Second Hand Exposure: Yes ; Hx Alcohol Use: No Hx Substance Use: No Review of Systems See HPI for pertinent positives & negatives. and A total of 10 systems reviewed and were otherwise negative Physical Exam Vital Signs Vital Signs - 24 hr 09/09/19 13:58 09/09/19 15:45 09/09/19 15:52 Temperature 36.6 C Temperature Source Oral Pulse Rate 102 H Pulse Rate [Right Finger] 66 Pulse Rhythm [Right Finger] Regular Pulse Strength [Right Finger] Normal Respiratory Rate 22 16 Respiratory Effort / Characteristics Non-Labored Spontaneous Respiratory Depth Normal Respiratory Pattern Regular Blood Pressure 133/85 Blood Pressure [Right Arm] 132/86 Blood Pressure Mean 101 Blood Pressure Mean [Right Arm] 101 Blood Pressure Position [Right Arm] Lying Pulse Oximetry 99 99 99 Oxygen Delivery Method Room Air Room Air Room Air Sepsis Recent Fever Within 48 Hours No Sepsis New/Unexplained Change in Mental Status No Sepsis Action Taken by Nursing No Action Required 09/09/19 17:53 Temperature Temperature Source Pulse Rate Pulse Rate [Right Finger] 76 Pulse Rhythm [Right Finger] Regular Pulse Strength [Right Finger] Normal Respiratory Rate 18 Respiratory Effort / Characteristics Non-Labored Spontaneous Respiratory Depth Normal Respiratory Pattern Regular Blood Pressure Blood Pressure [Right Arm] 147/85 H Blood Pressure Mean Blood Pressure Mean [Right Arm] 105 Blood Pressure Position [Right Arm] Sitting Pulse Oximetry 97 Oxygen Delivery Method Room Air Sepsis Recent Fever Within 48 Hours Sepsis New/Unexplained Change in Mental Status Sepsis Action Taken by Nursing GENERAL: Patient is in mild distress from pain. HEENT: No acute trauma, normocephalic atraumatic, mucous membranes moist, no n rachel congestion, no scleral icterus. NECK: No stridor, no adenopathy, no meningismus, trachea is midline. LUNGS: Clear to auscultation bilaterally, no wheeze, no rhonchi, breath sounds equal. HEART: Without murmurs gallops or rubs, regular rate and rhythm. BACK: No erythema, no swelling, low back pain with any movement. ABDOMEN: Soft, nontender, bowel sounds positive, no hernias, no peritonitis. RECTAL: Normal rectal tone, normal anal wink. EXTREMITIES: No cyanosis or edema, full range of motion of all the joints without pain or difficulty, no signs for acute trauma, PICC line in place to the left upper extremity. NEUROLOGIC: Oriented x 3, no acute motor or sensory deficits, no focal weakness. 2/4 patellar reflexes bilaterally, pain limits Achilles reflex testing. SKIN: No rash, no jaundice, no diaphoresis. Course Course 1426: Past medical records reviewed. The patient was evaluated in room C1. A co mplete history and physical exam was performed. 1434: My resident reassessed the patient and informed me of any updates. The patient is resting. 1717: I reviewed the patient's case with Dr. Cooper, Orthopedics Spine. He recommends transfer to another facility for further pain management. 1719: I reassessed the patient and informed him of possible transfer. The patient expresses a preference for [facility]. 1732: I reviewed the patient's case with Dr. Wright, Spinal Surgeon. He suggests admittance and pain control and antibiotics, He would be available if conditions worsened. No need for emergent neurosurgical intervention. 1756: I reviewed the patient's case with Dr. Cooper, Orthopedics Spine. He states that he is ok with the patient staying here based on the conversation with the documentation consultant. 1809: I reviewed the patient's case with Dr. Gonzales, [facility] Hospitalist. He will evaluate the patient for further management. Consultations Consultation #3: Additional Consultation(s): 180: I reviewed the patient's case with Dr. Gonzales, [facility] Hospitalist. He will evaluate the patient for further care. Administered Medications Gadobutrol (Gadavist 65ml) 8.5 ml IV ONCE PRN PRN Reason: Interaction Checking Stop: 09/13/19 16:33 Last Admin: 09/09/19 16:35 Dose: 8.5 ml Documented by: [id number] Hydromorphone HCl (Dilaudid) 1 mg IV Q15M PRN PRN Reason: Pain Stop: 09/23/19 14:30 Last Admin: 09/09/19 15:24 Dose: 1 mg Documented by: [id number] Discontinued Medications Heparin Sodium (Beef Lung) (Heparin Sod 10 Unit/Ml Flush) Confirm Administered Dose 5 ml FLUSH .STK-MED ONE Stop: 09/09/19 17:28 Last Admin: 09/09/19 17:40 Dose: 5 ml Documented by: [id number] Hydromorphone HCl (Dilaudid) 2 mg IV NOW STA Stop: 09/09/19 17:31 Last Admin: 09/09/19 17:39 Dose: 2 mg Documented by: [id number] Sodium Chloride (Nss) 500 mls @ 999 mls/hr IV .Q31M KYRA Stop: 09/09/19 15:15 Last Infusion: 09/09/19 15:53 Dose: 0 mls/hr Documented by: [id number] Admin: 09/09/19 15:23 Dose: 999 mls/hr Documented by: [id number] Cefepime HCl 2,000 mg/ Syringe 20 mls @ 5 mls/min IV TODAY@1515 KYRA Stop: 09/09/19 15:18 Last Admin: 09/09/19 15:25 Dose: 5 mls/min Documented by: [id number] Daptomycin 475 mg/ Syringe 9.5 mls @ 5 mls/min IV NOW STA; Protocol Stop: 09/09/19 15:04 Last Admin: 09/09/19 15:24 Dose: 5 mls/min Documented by: [id number] Lorazepam (Ativan) 2 mg in 4 mls @ 4 mls/min IV NOW STA Stop: 09/09/19 15:21 Last Admin: 09/09/19 15:24 Dose: 4 mls/min Documented by: [id number] Medical Decision Making Differential Diagnosis Differential diagnosis includes: worsening diskitis, epidural abscess, spinal cord compression, failed outpatient treatment, uncontrolled pain, malfunctioning PICC line, sepsis, bacteremia, urinary tract infection, as well as others were entertained. Medical Records Attestation: I reviewed the patient's medical records. The patient was discharged from this facility on August 29, 2019. The patient was diagnosed with discitis and osteomyelitis of the lumbar spine at L2 and L3. Dr. Cooper was consulted for spine and Dr. Martinez was consulted for infectious disease. Dr. Cooper states that surgery would be quite extensive and recommendations would be to avoid surgical intervention if possible. The patient was discharged on Daptomycin and Cefepime IV for 5 more weeks of therapy. The patient was seen on the at this ER for additional pain control. Home Medications Current Medication List: was personally reviewed by me Laboratory Data Attestation: I reviewed the patient's lab results. Result diagrams: 09/09/19 15:14 09/09/19 15:14 Lab Results 09/09/19 09/09/19 09/09/19 Range/Units 15:14 15:14 15:14 WBC 7.63 (4.8-10.8) K/uL RBC 5.01 (4.7-6.1) M/uL Hgb 14.6 (14.0-18.0) g/dL Hct 44.3 (42-52) % MCV 88.4 (80-100) fL MCH 29.1 (25-34) pg MCHC 33.0 (32-36) g/dL RDW Std Deviation 49.5 H (36.4-46.3) fL RDW Coeff of Gill 15.4 H (11.5-14.5) % Plt Count 260 (130-400) K/uL MPV 10.8 H (7.4-10.4) fL Immature Gran % (Auto) 0.1 % Neut % (Auto) 69.2 % Lymph % (Auto) 21.4 % Haines % (Auto) 7.3 % Eos % (Auto) 1.7 % Baso % (Auto) 0.3 % Immature Gran # (Auto) 0.01 (0.00-0.02) K/uL Neut # (Auto) 5.28 (1.4-6.5) K/uL Lymph # (Auto) 1.63 (1.2-3.4) K/uL Haines # (Auto) 0.56 (0.11-0.59) K/uL Eos # (Auto) 0.13 (0-0.5) K/uL Baso # (Auto) 0.02 (0-0.2) K/uL Sodium 138 (136-145) mmol/L Potassium 4.0 (3.5-5.1) mmol/L Chloride 108 H (98-107) mmol/L Carbon Dioxide 26 (21-32) mmol/L Anion Gap 4.0 (3-11) BUN 7 (7-18) mg/dl Creatinine 0.76 (0.6-1.4) mg/dl Est Cr Clr Drug Dosing 146.1 ml/min Est GFR ( Amer) 135.1 Est GFR (Non-Af Amer) 116.6 BUN/Creatinine Ratio 9.3 L (10-20) Glucose 75 (70-99) mg/dl Lactate 0.7 (0.4-2.0) mmol/L Calcium 9.8 (8.5-10.1) mg/dl C-Reactive Protein 0.46 H (0-0.29) mg/dl Imaging Data Radiologist's Impression: Radiology results as stated below per my review and the radiologist's interpretation: LUMBAR SPINE MRI WITH AND WITHOUT CONTRAST HISTORY: loss of bowel, known discitis, ?abscess TECHNIQUE: Multiplanar multisequence MRI of the lumbar spine was performed both before and after the intravenous administration of contrast. COMPARISON: Lumbar spine MRI 08/23/2019. FINDINGS: For the purpose of the report the L5-S1 disc space will be located on axial image 27 of 30. There is again noted discitis/osteomyelitis at the L2-L3 level with abnormal signal and mild erosive changes at the endplates. This is slightly progressed compared to the prior study. There is also abnormal signal and enhancement posterior to the L2 and L3 vertebral bodies which measures up to 5 mm in thickness. There is also a tiny 5 mm focus of nonenhancement posterior to the L2-L3 disc space level. This could represent a disc bulge. However, given the extensive surrounding phlegmon this is concerning for a small abscess. This is best seen on axial T1 postcontrast image 11 of 29. This results in moderate to severe central canal narrowing at this level which is slightly progressed. There is paravertebral soft tissue enhancement surrounding the L2 and L3 vertebral bodies. There is abnormal marrow signal seen throughout the L2-L3 vertebral bodies, pedicles, and transverse processes. This remains unchanged. Mild enhancement surrounding the bilateral exiting L2 and L3 nerve roots. Posterior decompression and fusion from L4 through S1 with pedicle screws and rods. There is mild central canal narrowing at L3-L4 due to a broad-based posterior disc bulge. IMPRESSION: 1. Redemonstration of the discitis/osteomyelitis at the L2-L3 level. This has slightly progressed. 2. There is extensive enhancement surrounding the L2-L3 vertebral bodies and within the epidural spaces posterior to these levels. The abnormal enhancement extends into the bilateral L2-L3 and L3-L4 neural foramen resulting in mild mass effect and favors phlegmon. There is also a tiny 5 mm focus of nonenhancement posterior to the L2-L3 disc space level. This could represent a disc bulge. However, given the extensive surrounding phlegmon this is concerning for a small abscess. This results in moderate to severe central canal narrowing at the L2-L3 level which has slightly progressed. 3. Postoperative changes as described above. ACT 112: Negative or not required by law. Electronically signed by: Abhishek Benton M.D. 09/09/2019 5:06 PM Blood Pressure Blood Pressure Findings: Elevated blood pressure Blood Pressure Disposition: further management by hospitalist LUISANA Marrero There is no leukocytosis or concerning anemia. No significant electrolyte abnormality or kidney failure. Lactic acid level was normal. C-reactive protein was very slightly elevated. MRI of the lumbar spine showed discitis at L2 and L3 which had slightly progressed compared to the previous MRI, a small area of potential abscess was noted. On exam, the patient had normal rectal tone. He was not febrile or toxic. He had 2/4 patellar reflexes bilaterally. He was able to ambulate in the room without any deficits in the lower extremities. He did have a lot of lower back pain with any movement though. The patient received IV Dilaudid for pain control. Several doses were administered. He was given IV Ativan for muscle relaxation and for help with anxiety prior to his MRI. He received a 500 cc saline bolus. He received his IV daptomycin and IV cefepime as were due for the day. As the patient's MRI had worsened, as he had complained of some bowel incontinence earlier, spinal surgery at this hospital was consulted. They suggested talking to a tertiary care center. We spoke to [facility] er in [place]. The spinal surgeon on-call felt the patient could stay at our hospital for IV antibiotic therapy and pain control. No emergent surgical intervention was felt warranted based on his work-up and exam. I spoke to the patient, we spoke with case management. The on-call hospitalist has been consulted. I did speak again with our spinal surgical technology instructor who is now comfortable with the patient staying here based on the conversation with the tertiary center. Of note, the PICC line was checked by the IV team, it seemed to be functioning normally and was felt usable. Impression & Plan Discitis, Lower back pain, Bowel incontinence, Occluded PICC line Discharge Plan Visit Data Chief Complaint: Back Injury/Pain Stated Complaint: BACK PAIN - PICK LINE ED Provider: Justino Melgar ED Midlevel Provider: Phong Shine Discharge Problem: Discitis, Lower back pain, Bowel incontinence, Occluded PICC line Patient Disposition: Being Evaluated by Hospitalist Forms Stand Alone Forms: My [facility] Prescriptions Prescriptions: No Action baclofen 10 mg Tablet 10 mg PO TID Qty: 30 RF: 0 gabapentin 300 mg Capsule 300 mg PO TID Qty: 90 RF: 0 oxycodone 10 mg tablet 10 mg PO BID PRN (Reason: pain) Qty: 15 RF: 0 cefepime [Maxipime] 1 gram Recon Soln 0 g IM Q12H RF: 0 oxycodone-acetaminophen 7.5-325 mg tablet 1 tab PO Q6H RF: 0 Referrals Referrals: Shilpa Cisneros CRNP [Primary Care Provider] - Discharge Problem: Discitis Qualifiers: Spinal region: lumbar Qualified Code(s): M46.46 - Discitis, unspecified, lumbar region Lower back pain Qualifiers: Chronicity: acute Back pain laterality: midline Sciatica presence: without sciatica Qualified Code(s): M54.5 - Low back pain Bowel incontinence Qualifiers: Fecal incontinence type: unspecified Qualified Code(s): R15.9 - Full incontinence of feces Occluded PICC line Qualifiers: Encounter type: initial encounter Qualified Code(s): T82.898A - Other specified complication of vascular prosthetic devices, implants and grafts, initial encounter The scribe's documentation has been prepared under my direction and personally reviewed by me in its entirety. I confirm that the note above accurately reflects all work, treatment, procedures, and medical decision making performed by me.
[2019-09-09] MEDS ORDERED: GADOBUTROL 65ML VIAL IV PRN (16:34)
--- NOTE | 2019-09-09 17:08 | Magnetic Resonance Report ---
LUMBAR SPINE MRI WITH AND WITHOUT CONTRAST HISTORY: loss of bowel, known discitis, ?abscess TECHNIQUE: Multiplanar multisequence MRI of the lumbar spine was performed both before and after the intravenous administration of contrast. COMPARISON: Lumbar spine MRI 08/23/2019. FINDINGS: For the purpose of the report the L5-S1 disc space will be located on axial image 27 of 30. There is again noted discitis/osteomyelitis at the L2-L3 level with abnormal signal and mild erosive changes at the endplates. This is slightly progressed compared to the prior study. There is also abno rmal signal and enhancement posterior to the L2 and L3 vertebral bodies which measures up to 5 mm in thickness. There is also a tiny 5 mm focus of nonenhancement posterior to the L2-L3 disc space level. This could represent a disc bulge. However, given the extensive surrounding phlegmon this is concern ing for a small abscess. This is best seen on axial T1 postcontrast image 11 of 29. This results in m oderate to severe central canal narrowing at this level which is slightly progressed. There is parave rtebral soft tissue enhancement surrounding the L2 and L3 vertebral bodies. There is abnormal marrow signal seen throughout the L2-L3 vertebral bodies, pedicles, and transverse processes. This remains u nchanged. Mild enhancement surrounding the bilateral exiting L2 and L3 nerve roots. Posterior decompr ession and fusion from L4 through S1 with pedicle screws and rods. There is mild central canal narrow ing at L3-L4 due to a broad-based posterior disc bulge. IMPRESSION: 1. Redemonstration of the discitis/osteomyelitis at the L2-L3 level. This has slightly progressed. 2. There is extensive enhancement surrounding the L2-L3 vertebral bodies and within the epidural spac es posterior to these levels. The abnormal enhancement extends into the bilateral L2-L3 and L3-L4 alondra ral foramen resulting in mild mass effect and favors phlegmon. There is also a tiny 5 mm focus of non enhancement posterior to the L2-L3 disc space level. This could represent a disc bulge. However, give n the extensive surrounding phlegmon this is concerning for a small abscess. This results in moderate to severe central canal narrowing at the L2-L3 level which has slightly progressed. 3. Postoperative changes as described above. ACT 112: Negative or not required by law. Electronically signed by: Abhishek Benton M.D. 09/09/2019 5:06 PM
[2019-09-09] MEDS ORDERED: HYDROmorphone INJ 2 MG/ML SYR/VIAL IV STA (17:30)
[2019-09-09 18:16] LABS: C Reactive Protein 0.46 mg/dl (0-0.29)
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
[2019-09-09] MEDS ORDERED: ONDANSETRON INJ 2 MG/ML 2 ML VIAL IV PRN (19:51)
[2019-09-09] MEDS ORDERED: CEFEPIME CONSULT ACTIVE PRN (20:02)
[2019-09-09] MEDS ORDERED: DAPTOMYCIN CONSULT ACTIVE PRN (20:03)
[2019-09-09] MEDS: OXYCODONE HCL IR 5 MG TAB (IMMEDIATE RELEASE) PO PRN (20:36)
[2019-09-09] MEDS: ACETAMINOPHEN 325 MG TAB PO PRN (21:35)
[2019-09-09] MEDS: GABAPENTIN 300 MG CAP PO SCH (21:36)
[2019-09-09] MEDS: BACLOFEN 10 MG TAB PO SCH (21:36)
[2019-09-09] MEDS: HYDROmorphone INJ 0.5 MG/0.5 ML SYR IV PRN (23:39)
[2019-09-10] MEDS ORDERED: CEFEPIME 2,000 MG in SYRINGE 7.5 ML IV SCH (02:00)
[2019-09-10 05:55] LABS: Hematocrit (blood only) 39.2 % (42-52); Hemoglobin 12.8 g/dL (14.0-18.0); Mean Corpuscular Hemoglobin 28.6 pg (25-34); Mean Corpuscular Hgb Conc 32.7 g/dL (32-36); Mean Corpuscular Volume 87.5 fL (80-100); Mean Platelet Volume 10.5 fL (7.4-10.4); Platelet Count 225 K/uL (130-400); RDW Coefficient of Variation 15.7 % (11.5-14.5); RDW Standard Deviation 50.1 fL (36.4-46.3); Red Blood Count 4.48 M/uL (4.7-6.1); White Blood Count 5.51 K/uL (4.8-10.8)
[2019-09-10 06:30] LABS: BUN Creatinine Ratio 15.1 (10-20); Calcium 9.1 mg/dl (8.5-10.1); Creatinine Clr Calc Pharmacy 146.1 ml/min; Est GFR (African American) 135.1; Est GFR (Non-African American) 116.6
[2019-09-10] MEDS: BACLOFEN 10 MG TAB PO SCH ×3 (07:34→20:32)
[2019-09-10] MEDS: GABAPENTIN 300 MG CAP PO SCH ×3 (07:34→20:32)
[2019-09-10] MEDS: HYDROmorphone INJ 0.5 MG/0.5 ML SYR IV PRN ×5 (07:34→21:17)
[2019-09-10] MEDS: OXYCODONE HCL IR 5 MG TAB (IMMEDIATE RELEASE) PO PRN ×3 (08:39→21:47)
--- NOTE | 2019-09-10 11:48 | Orthopedic Consultation ---
Date of Consultation September 10, 2019 Assessment & Plan (1) Discitis: This time was able to compare his MRI scan from 1 to 3 weeks ago. There does appear to be some improvement in the fluid content of the disc at L2-3. Again it takes an MRI several weeks to represent healing is always somewhat delayed. Nevertheless clinically he is neurologically intact. He does have a history of narcotic abuse and this may contribute to his lack of pain control. I suggest we consider pain management consult Wednesday for their input and guidance. At this time I see no indication for surgical intervention. Present on Admission?: Yes History of Present Illness Reason for Consultation: Back pain Attending Physician: Jared Dorman MD History of Present Illness This is a 39-year-old male well-known to me that presents emergency room last night with an episode of severe back pain he describes a loss of bowel control. At this time his pain is improved but he still complaining quite a bit of axial back pain with some radiation down the left lower extremity. He is however up a nd ambulating without difficulty. He denies any fevers or chills nausea or vomiting. Allergies Allergy/AdvReac Type Severity Reaction Status Date / Time fentanyl Allergy Severe ANAPHYLAXIS Verified 08/22/19 23:06 propoxyphene Allergy Intermediate TONGUE Verified 08/22/19 23:06 NUMBNESS tramadol Allergy Intermediate swelling Verified 08/22/19 23:06 ketorolac AdvReac Intermediate FACIAL Verified 08/22/19 23:06 SWELLING/THROAT SWELLING Home Medications Home Medications Medication Instructions Recorded Confirmed Type baclofen 10 mg PO TID #30 tab 08/29/19 09/09/19 Rx gabapentin 300 mg PO TID #90 cap 08/29/19 09/09/19 Rx oxycodone 10 mg PO BID PRN #15 tab 08/29/19 09/09/19 Rx cefepime [Maxipime] 0 g IM Q12H 09/09/19 09/09/19 History oxycodone-acetaminophen 1 tab PO Q6H 09/09/19 09/09/19 History Patient History Medical History Lumbar discitis Lumbar radiculopathy (Acute) Osteoarthritis Osteomyelitis of lumbar spine (Acute) Spinal stenosis Temporomandibular joint disorder Tobacco use disorder (Acute) Surgical History Fusion of spine LUMBAR History of anesthesia reaction BP DROPS History of back surgery (Resolved) History of tooth extraction Hx of cholecystectomy (Resolved) S/P nasal surgery RE-SET D/T FRACTURE Family History Grandfather (Maternal) Family history of diabetes mellitus Social History Preferred Language: Bolivian Communication Ability: Effective Team Supervisor Required: No Beliefs That Will Affect Care: None Current Living Situation: Significant Other Feels Safe at Home: Yes Smoking Status: Current every day smoker Tobacco Type: cigarettes ; Cigarettes Per Day: pack ; Second Hand Exposure: Yes ; Tobacco Cessation Education Requested by Patient: No Hx Alcohol Use: No Hx Substance Use: No Physical Exam Physical Exam: On exam is excellent strength testing in bilateral extremities. He is up and ambulating without difficulty. Does not appear to be in acute distress. Results & Data Vital Signs (Past 12 Hours) Vital Signs Temp Pulse Resp BP Pulse Ox 09/10/19 07:08 36.8 C 83 18 102/70 96 (1) Discitis Spinal region: lumbar Qualified Code(s): M46.46 - Discitis, unspecified, lumbar region
--- NOTE | 2019-09-10 13:15 | Hospitalist Progress Note ---
Date of Service September 10, 2019 Assessment & Plan (1) Lumbar discitis: (2) Lower back pain: Lumbar Discitis --MRI lumbar spine: Redemonstration of the discitis/osteomyelitis at the L2-L3 level. This has slightly progressed. There is extensive enhancement surrounding the L2-L3 vertebral bodies and within the epidural spaces posterior to these levels. The abnormal enhancement extends into the bilateral L2-L3 and L3-L4 neural foramen resulting in mild mass effect and favors phlegmon. There is also a tiny 5 mm focus of nonenhancement posterior to the L2-L3 disc space level. This could represent a disc bulge. However, given the extensive surrounding phlegmon this is concerning for a small abscess. This results in moderate to severe central canal narrowing at the L2-L3 level which has slightly progressed. Postoperative changes as described above. --Appreciate Orthopedics Input --Continue cefepime, daptomycin as per ID recommendations from prior hospitalization --Continue baclofen, gabapentin --pain control--Uncontrolled as per patient --Will Consult Pain management --Cautious use of Narcotics due to H/O Narcotic abuse in the past --No indication for surgical intervention at currently as per orthopedics (3) Occluded PICC line: Monitor DVT Px: SCDs Code Status Full Code Disposition Follows with Shilpa BERMAN for routine care Expect to discharge home Subjective Patient is seen and examined at bedside Complains of back pain Denies any chest pain, SOB, dizziness, nausea, abd pain Offers no other complaints Review of Systems Review of Systems: All systems reviewed & are unremarkable except as noted in HPI & below Physical Exam Physical Exam: Physical Exam: Vitals signs as noted above General Appearance:Moderately built and nourished, no apparent distress Head: normocephalic, Atraumatic Eyes: normal inspection, EOMI Neck: supple, Trachea midline Respiratory/Chest: Normal breath sounds, CTA Cardiovascular: S1, S2, No murmur Abdomen/GI:Soft, Non tender, Bowel sounds present 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, no erythema or obvious swelling Extremities/Musculoskelatal:normal inspection, no edema Neurologic/Psych:AAOX3, grossly no focal neurological deficits Skin: normal color, warm Results & Data Vital Signs (Past 12 Hours) Vital Signs Temp Pulse Resp BP Pulse Ox 09/10/19 07:08 36.8 C 83 18 102/70 96 Laboratory Results Short CBC 09/09/19 09/10/19 Range/Units 15:14 05:46 WBC 7.63 5.51 (4.8-10.8) K/uL Hgb 14.6 12.8 L (14.0-18.0) g/dL Hct 44.3 39.2 L (42-52) % Plt Count 260 225 (130-400) K/uL BMP 09/09/19 09/10/19 15:14 05:46 Sodium 138 142 Potassium 4.0 4.0 Chloride 108 H 110 H Carbon Dioxide 26 30 BUN 7 11 D Creatinine 0.76 0.76 Glucose 75 84 Calcium 9.8 9.1 (1) Lower back pain Back pain laterality: midline Chronicity: acute Sciatica presence: without sciatica Qualified Code(s): M54.5 - Low back pain (2) Occluded PICC line Encounter type: initial encounter Qualified Code(s): T82.898A - Other specified complication of vascular prosthetic devices, implants and grafts, initial encounter
[2019-09-10] MEDS: CEFEPIME 2,000 MG in SYRINGE 7.5 ML IV SCH ×2 (13:50→21:41)
[2019-09-10] MEDS: DAPTOmycin 625 MG in SYRINGE 0 ML IV SCH (14:04)
[2019-09-10] MEDS ORDERED: DAPTOmycin 475 MG in SYRINGE 0 ML IV SCH (15:00)
[2019-09-10] MEDS ORDERED: COUGH DROP (SUGAR FREE) LOZ 24 LOZ/1 BOX BUCCAL PRN (15:11)
[2019-09-11] MEDS: HYDROmorphone INJ 0.5 MG/0.5 ML SYR IV PRN ×8 (00:07→23:47)
[2019-09-11] MEDS: OXYCODONE HCL IR 5 MG TAB (IMMEDIATE RELEASE) PO PRN ×4 (04:07→22:17)
[2019-09-11] MEDS: CEFEPIME 2,000 MG in SYRINGE 7.5 ML IV SCH ×3 (06:01→22:18)
[2019-09-11 06:52] LABS: Creatinine Clr Calc Pharmacy 142.3 ml/min; Est GFR (African American) 133.7; Est GFR (Non-African American) 115.3
[2019-09-11] MEDS: BACLOFEN 10 MG TAB PO SCH ×3 (08:15→22:17)
[2019-09-11] MEDS: GABAPENTIN 300 MG CAP PO SCH ×3 (08:15→22:17)
[2019-09-11] MEDS: DAPTOmycin 625 MG in SYRINGE 0 ML IV SCH (13:00)
--- NOTE | 2019-09-11 15:04 | Hospitalist Progress Note ---
Date of Service September 11, 2019 Assessment & Plan (1) Lumbar discitis: (2) Lower back pain: Lumbar Discitis/Osteomyelitis --MRI lumbar spine: Redemonstration of the discitis/osteomyelitis at the L2-L3 level. This has slightly progressed. There is extensive enhancement surrounding the L2-L3 vertebral bodies and within the epidural spaces posterior to these levels. The abnormal enhancement extends into the bilateral L2-L3 and L3-L4 neural foramen resulting in mild mass effect and favors phlegmon. There is also a tiny 5 mm focus of nonenhancement posterior to the L2-L3 disc space level. This could represent a disc bulge. However, given the extensive surrounding phlegmon this is concerning for a small abscess. This results in moderate to severe central canal narrowing at the L2-L3 level which has slightly progressed. Postoperative changes as described above. --Appreciate Orthopedics Input--Discussed with on 09/11/19--Plan to repeat MRI as outpatient --Continue cefepime, daptomycin as per ID recommendations from prior hospitalization --No plan for any surgical intervention currently --No signs of sepsis --Continue baclofen, gabapentin --Cautious use of Narcotics due to H/O Narcotic abuse in the past --Pain management consulted for Input (3) Occluded PICC line: Monitor DVT Px: SCDs Code Status Full Code Disposition Follows with Shilpa BERMAN for routine care Expect to discharge home Subjective Patient is seen and examined at bedside Patient continues to have back pain and reports poor sleep Discussed with orthopedics Dr. 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, no erythema or obvious swelling Extremities/Musculoskelatal:normal inspection, no edema Neurologic/Psych:AAOX3, grossly no focal neurological deficits Skin: normal color, warm Results & Data Vital Signs (Past 12 Hours) Vital Signs Temp Pulse Resp BP Pulse Ox 09/11/19 07:44 36.8 C 82 16 117/74 95 Laboratory Results BMP 09/11/19 06:07 Creatinine 0.78 Cardiac Enzymes 09/11/19 Range/Units 06:07 Total Creatine Kinase 44 (39-308) U/L (1) Lower back pain Back pain laterality: midline Chronicity: acute Sciatica presence: without sciatica Qualified Code(s): M54.5 - Low back pain (2) Occluded PICC line Encounter type: initial encounter Qualified Code(s): T82.898A - Other specified complication of vascular prosthetic devices, implants and grafts, initial encounter
[2019-09-12] MEDS: ACETAMINOPHEN 325 MG TAB PO PRN (00:04)
[2019-09-12] MEDS: CEFEPIME 2,000 MG in SYRINGE 7.5 ML IV SCH ×2 (06:19→13:29)
[2019-09-12] MEDS: HYDROmorphone INJ 0.5 MG/0.5 ML SYR IV PRN ×3 (06:21→13:28)
[2019-09-12 06:36] LABS: Creatinine Clr Calc Pharmacy 146.1 ml/min; Est GFR (African American) 135.1; Est GFR (Non-African American) 116.6
[2019-09-12] MEDS: OXYCODONE HCL IR 5 MG TAB (IMMEDIATE RELEASE) PO PRN ×3 (07:59→16:18)
[2019-09-12] MEDS: GABAPENTIN 300 MG CAP PO SCH (08:00)
[2019-09-12] MEDS: BACLOFEN 10 MG TAB PO SCH ×2 (08:00→13:27)
--- NOTE | 2019-09-12 08:32 | Pain Management Consultation ---
Date of Consultation September 12, 2019 Assessment & Plan (1) Discitis: 1. Would not recommend significant escalation opiates at this time, may increase oxycodone to 10mg po q4h. Instead consider adjuvant medications to further augment pain relief. 2. Recommend Remeron 15 mg p.o. nightly, increasing gabapentin to 600 mg p.o. 3 times daily, utilization of clonidine 0.1 mg p.o. every 8 as needed agitation or pain. 3. Continue to utilize lumbar support brace for pain relief. 4. No interventional treatment options are available to the patient at this time. 5. Please call with any questions. All of the above was discussed with the patient and he is in agreement. Spinal region: lumbar Qualified Code(s): M46.46 - Discitis, unspecified, lumbar region (2) Lower back pain: Back pain laterality: midline Chronicity: acute Sciatica presence: without sciatica Qualified Code(s): M54.5 - Low back pain (3) Inadequate pain control: (4) Vertebral osteomyelitis, acute: (5) History of back surgery: (6) Occluded PICC line: Encounter type: initial encounter Qualified Code(s): T82.898A - Other specified complication of vascular prosthetic devices, implants and grafts, initial encounter History of Present Illness Attending Physician: Jared Dorman MD History of Present Illness 39 year old white male re-admitted with complaints of intractable low back pain associated with L2-3 diskitis. Prior history of L4-S1 fusion approximately 17 years ago. Patient reported onset in May occurring after lifting some heavy luggage, no history of trauma, fevers, night sweats or chills. At his last admission a PICC line was placed and initiated on IV antibiotics per infectious disease. He is found mild benefit with low back brace, IV hydromorphone, gabapentin, oxycodone. Pain this morning 9 out of 10 characterized as cramping stabbing over the axial spine with radiation into bilateral hips.. I personally noted he was ambulating in the hallway and had a slow gait but appeared to be in minimal pain. He states that oxycodone has been helpful however feels that it does not last the full 6 hours lasting only 4 hours. He admits to difficulty with pain at night leading to poor sleep quality. Pain Assessment [facility] Combined Pain Scale: 9-Agonizing - Cannot function. Uncontrolled screaming. Pain scale - at its best (0-10): 9 Pain scale - at its worst (0-10): 10 Allergies Allergy/AdvReac Type Severity Reaction Status Date / Time fentanyl Allergy Severe ANAPHYLAXIS Verified 08/22/19 23:06 propoxyphene Allergy Intermediate TONGUE Verified 08/22/19 23:06 NUMBNESS tramadol Allergy Intermediate swelling Verified 08/22/19 23:06 ketorolac AdvReac Intermediate FACIAL Verified 08/22/19 23:06 SWELLING/THROAT SWELLING Home Medications Home Medications Medication Instructions Recorded Confirmed Type baclofen 10 mg PO TID #30 tab 08/29/19 09/09/19 Rx gabapentin 300 mg PO TID #90 cap 08/29/19 09/09/19 Rx oxycodone 10 mg PO BID PRN #15 tab 08/29/19 09/09/19 Rx cefepime [Maxipime] 0 g IM Q12H 09/09/19 09/09/19 History oxycodone-acetaminophen 1 tab PO Q6H 09/09/19 09/09/19 History Pain History Pain Intensity Pain scale - at its best (0-10): 9 Pain scale - at its worst (0-10): 10 Patient History Medical History Lumbar discitis Lumbar radiculopathy (Acute) Osteoarthritis Osteomyelitis of lumbar spine (Acute) Spinal stenosis Temporomandibular joint disorder Tobacco use disorder (Acute) Surgical History Fusion of spine LUMBAR History of anesthesia reaction BP DROPS History of back surgery (Resolved) History of tooth extraction Hx of cholecystectomy (Resolved) S/P nasal surgery RE-SET D/T FRACTURE Family History Grandfather (Maternal) Family history of diabetes mellitus Social History Preferred Language: [place]er Communication Ability: Effective 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 Recent memory appears grossly intact Eyes: Pupils are equally round and reactive to light with normal size pupils, eyelids appear normal Ear, nose, mouth, and throat: Moist nasal and oral membranes, lips and tongues appear normal, no external ear abnormalities are noted Neck: The trachea is midline without deviation and no thyromegaly is noted Respiratory: Normal respiratory effort without distress, no audible wheezes or rhonchi CV: Normal S1 and S2 Chest: Deferred Musculoskeletal: Head is normocephalic and atraumatic, gait is slowed and guarded Cervical: Strength: Strength is grossly equal bilaterally with 5 out of 5 strength in all planes Lumbar: Lordotic curve: Loss of lumbar lordosis Range of motion is decreased in all planes Tenderness: Mild to moderately tender over the axial midline Strength: Strength is equal bilaterally with 5 out of 5 strength in all planes Sensation of lower extremities: Intact bilaterally Greater trochanters: Nontender bilaterally Sacroiliac joints: Nontender bilaterally Skin: No rashes, lesions, ulcers, or induration noted. PICC line is in place Neuro: No nystagmus noted, the tongue is midline, the patient is able to rotate their head bilaterally : Deferred Results Diagnostic Review MRI: enhanced, non enhanced and reports reviewed MRI Findings: 09/09/19 LUMBAR SPINE MRI WITH AND WITHOUT CONTRAST HISTORY: loss of bowel, known discitis, ?abscess TECHNIQUE: Multiplanar multisequence MRI of the lumbar spine was performed both before and after the intravenous administration of contrast. COMPARISON: Lumbar spine MRI 08/23/2019. FINDINGS: For the purpose of the report the L5-S1 disc space will be located on axial image 27 of 30. There is again noted discitis/osteomyelitis at the L2-L3 level with abnormal signal and mild erosive changes at the endplates. This is slightly progressed compared to the prior study. There is also abnormal signal and enhancement posterior to the L2 and L3 vertebral bodies which measures up to 5 mm in thickness. There is also a tiny 5 mm focus of nonenhancement posterior to the L2-L3 disc space level. This could represent a disc bulge. However, given the extensive surrounding phlegmon this is concerning for a small abscess. This is best seen on axial T1 postcontrast image of 29. This results in moderate to severe central canal narrowing at this level which is slightly progressed. There is paravertebral soft tissue enhancement surrounding the L2 and L3 vertebral bodies. There is abnormal marrow signal seen throughout the L2-L3 vertebral bodies, pedicles, and transverse processes. This remains unchanged. Mild enhancement surrounding the bilateral exiting L2 and L3 nerve roots. Posterior decompression and fusion from L4 through S1 with pedicle screws and rods. There is mild central canal narrowing at L3-L4 due to a broad-based posterior disc bulge. IMPRESSION: 1. Redemonstration of the discitis/osteomyelitis at the L2-L3 level. This has slightly progressed. 2. There is extensive enhancement surrounding the L2-L3 vertebral bodies and within the epidural spaces posterior to these levels. The abnormal enhancement extends into the bilateral L2-L3 and L3-L4 neural foramen resulting in mild mass effect and favors phlegmon. There is also a tiny 5 mm focus of nonenhancement posterior to the L2-L3 disc space level. This could represent a disc bulge. However, given the extensive surrounding phlegmon this is concerning for a small abscess. This results in moderate to severe central canal narrowing at the L2- L3 level which has slightly progressed. 3. Postoperative changes as described above. Previous Records Review Previous Records: personally reviewed by me Opioid Risk Assessment Opioid Risk Assessment: risk assessment performed and high risk identified
[2019-09-12] MEDS ORDERED: cloNIDine HCL 0.1 MG/24 HR TRANSDERM SYS TD SCH (12:00)
[2019-09-12] MEDS: DAPTOmycin 625 MG in SYRINGE 0 ML IV SCH (12:34)
[2019-09-12] MEDS ORDERED: GABAPENTIN 300 MG CAP PO SCH (14:00)
--- NOTE | 2019-09-12 14:53 | Hospitalist Progress Note ---
Date of Service September 12, 2019 Assessment & Plan (1) Lumbar discitis: (2) Lower back pain: Lumbar Discitis/Osteomyelitis --MRI lumbar spine: Redemonstration of the discitis/osteomyelitis at the L2-L3 level. This has slightly progressed. There is extensive enhancement surrounding the L2-L3 vertebral bodies and within the epidural spaces posterior to these levels. The abnormal enhancement extends into the bilateral L2-L3 and L3-L4 neural foramen resulting in mild mass effect and favors phlegmon. There is also a tiny 5 mm focus of nonenhancement posterior to the L2-L3 disc space level. This could represent a disc bulge. However, given the extensive surrounding phlegmon this is concerning for a small abscess. This results in moderate to severe central canal narrowing at the L2-L3 level which has slightly progressed. Postoperative changes as described above. --Appreciate Orthopedics Input--Discussed with on 09/11/19--Plan to repeat MRI as outpatient --Continue cefepime, daptomycin as per ID recommendations from prior hospitalization --No plan for any surgical intervention currently --No signs of sepsis --Continue baclofen, gabapentin --Cautious use of Narcotics due to H/O Narcotic abuse in the past --Appreciate pain management input --Medications adjusted to control his back pain better --Added Remeron 15 mg nightly, gabapentin increased to 600 mg p.o. 3 times daily (3) Occluded PICC line: Monitor DVT Px: SCDs Code Status Full Code Disposition Follows with Shilpa BERMAN for routine care Expect to discharge home Subjective Patient is seen and examined at bedside Reports back pain Ambulating in hallway with no distress No other complaints Denies any chest pain, SOB, dizziness, nausea, abd pain Family at bedside Discussed with pain management today Review of Systems Review of Systems: All systems reviewed & are unremarkable except as noted in HPI & below Physical Exam Physical Exam: Physical Exam: Vitals signs as noted above General Appearance:Moderately built and nourished, no apparent distress Head: normocephalic, Atraumatic Eyes: normal inspection, EOMI Neck: supple, Trachea midline Respiratory/Chest: Normal breath sounds, CTA Cardiovascular: S1, S2, No murmur Abdomen/GI:Soft, Non tender, Bowel sounds present 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, no erythema or obvious swelling Extremities/Musculoskelatal:normal inspection, no edema Neurologic/Psych:AAOX3, grossly no focal neurological deficits Skin: normal color, warm Results & Data Vital Signs (Past 12 Hours) Vital Signs Temp Pulse Resp BP Pulse Ox 09/12/19 07:11 36.8 C 68 18 113/72 96 Laboratory Results BMP 09/12/19 05:13 Creatinine 0.76 (1) Lower back pain Back pain laterality: midline Chronicity: acute Sciatica presence: without sciatica Qualified Code(s): M54.5 - Low back pain (2) Occluded PICC line Encounter type: initial encounter Qualified Code(s): T82.898A - Other specified complication of vascular prosthetic devices, implants and grafts, initial encounter
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
[2019-09-12] MEDS ORDERED: CHECK CLONIDINE PATCH PLACEMENT SCH (16:00)
[2019-09-12] MEDS ORDERED: MIRTAZAPINE TAB 15 MG TAB PO SCH (21:00)
== END 2019-09-12 16:41 | disposition home health service (06) | DRG 540 ==
LOC: ED 13:57 → 3W 19:02 → SUATTDRO 19:02 → 3W 19:27

== ENCOUNTER 2023-05-05 14:04 | Inpatient (IN) ==
[2023-05-05] MEDS ORDERED: ONDANSETRON INJ 2 MG/ML 2 ML VIAL IV STA (14:18)
[2023-05-05] MEDS ORDERED: SODIUM CHLORIDE 0.9% 500 ML IV STA (14:18)
[2023-05-05 15:10] LABS: Basophils # (auto) 0.03 K/uL (0.00-0.20); Basophils % (auto) 0.2 %; Eosinophils # (auto) 0.01 K/uL (0.00-0.50); Eosinophils % (auto) 0.1 %; Hematocrit (blood only) 46.1 % (42.0-52.0); Hemoglobin 15.4 g/dl (14.0-18.0); Immature Granulocytes # (auto) 0.05 K/uL (0.01-0.20); Immature Granulocytes % (auto) 0.4 %; Lymphocytes # (auto) 0.97 K/uL (1.20-3.40); Lymphocytes % (auto) 7.6 %; Mean Corpuscular Hemoglobin 28.9 pg (25.0-34.0); Mean Corpuscular Hgb Conc 33.4 g/dL (32.0-36.0); Mean Corpuscular Volume 86.5 fL (80.0-100.0); Mean Platelet Volume 11.8 fL (9.4-12.4); Monocytes # (auto) 0.57 K/uL (0.11-0.59); Monocytes % (auto) 4.5 %; Neutrophils # (auto) 11.15 K/uL (1.40-6.50); Neutrophils % (auto) 87.2 %; Platelet Count 317 K/uL (130-400); RDW Coefficient of Variation 14.2 % (11.5-14.5); RDW Standard Deviation 44.7 fL (36.4-46.3); Red Blood Count 5.33 M/uL (4.70-6.10); White Blood Count 12.78 K/ul (4.8-10.8)
[2023-05-05 15:25] LABS: Albumin Globulin Ratio 1.3 (0.9-2); Albumin Level 4.7 gm/dl (3.4-5.0); BUN Creatinine Ratio 7.4 (10-20); Bilirubin,Total 0.6 mg/dl (0.2-1.0); Calcium 10.8 mg/dl (8.6-10.3); Creatinine Clr Calc Pharmacy 126.2 ml/min; Est GFR (African American) 115.6 ml/min; Est GFR (Non-African American) 99.7 ml/min; Globulin 3.7 gm/dl (2.5-4.0); Potassium 3.6 mmol/L (3.5-5.1); Total Protein 8.4 gm/dl (6.0-8.3)
[2023-05-05] MEDS ORDERED: METOCLOPRAMIDE HCL INJ 5 MG/ML 2 ML VIAL IV STA (15:52)
[2023-05-05] MEDS ORDERED: MoRPHine SULFATE 4 MG/ML 1 ML CARP\\VIAL IV STA ×2 (15:52→19:37)
[2023-05-05] MEDS ORDERED: SODIUM CHLORIDE 0.9% 1000ML 1,000 ML IV ONE (15:52)
--- NOTE | 2023-05-05 15:56 | Emergency Department Note ---
Impression & Plan Diverticulitis, Abnormal CT of the abdomen, Abdominal pain ED Provider Note NAME: JENNIE JARAMILLO AGE: 42 SEX: M : 1980 ARRIVES VIA: Walk-In INFORMANT: Patient ED PROVIDER(S): Migue Hein DO CHIEF COMPLAINT: Abdominal pain HPI: Patient is a 42-year-old male with a past medical history of cholecystectomy, discitis who presents ER for periumbilical abdominal pain ass ociate with nausea and vomiting. He notes has been unable to keep anything down since yesterday. He has been having flecks of blood in his vomit. He denies any headache or change in vision. No chest pain or shortness of breath. No dysuria, urgency, or frequency. No other exacerbating or remitting factors. No Black stools. PAST MEDICAL HISTORY:See Below PAST SURGICAL HISTORY:See Below FAMILY HISTORY:See Below SOCIAL HISTORY:See Below HOME MEDICATIONS:See Below ALLERGIES:See Below VITALS:See Below PHYSICAL EXAMINATION: GENERAL: Sitting up in bed, alert, moderate distress holding abdomen rolling around in bed EYE EXAM: normal conjunctiva. OROPHARYNX: Dry mucous membrane NECK: supple, no nuchal rigidity, no adenopathy, non-tender LUNGS: Clear to auscultation. Normal chest wall mechanics HEART: no murmurs, S1 normal and S2 normal ABDOMEN: abdomen soft, mild diffuse tenderness, normo-active bowel sounds, no masses, no rebound or guarding. UPPER EXTREMITIES: upper extremities are grossly normal. LOWER EXTREMITIES: No pitting edema. NEURO EXAM: Normal sensorium, cranial nerves II-XII grossly intact, normal speech, no gross weakness of arms, no gross weakness of legs. MEDICAL DECISION MAKING: Patient is a 42-year-old male who presents ER for above-stated complaint. IV was established blood work was obtained. External records reviewed. Labs show mild leukocytosis 12.7 thousand. No significant anemia. BMP was unremarkable. T. bili 8.6. No significant transaminitis. Lipase was normal. UA is unremarkable. CT abdomen pelvis shows diverticulitis. Patient was given IV Zosyn. Updated bedside. Discussed with hospitalist admitted for further work- up with the persistent nausea vomiting following IV fluids Zofran and Reglan Triage Nursing notes reviewed. Limited review of prior medical records performed Vital Signs: reviewed and remarkable for HTN and tachy Differential diagnosis: Differential diagnoses includes but is not limited to gastritis, peptic ulcer disease, GERD, gallbladder disease, pancreatitis, small bowel obstruction, appendicitis, diverticulitis, hernia, urinary tract infection, torsion, perforation, trauma, infectious. ER treatment provided: See below Diagnostics interpreted by me include EKG and cardiac monitoring as listed below: -Cardiac Monitoring: An order was placed for continuous cardiac monitoring. The monitor shows a rate of 101 with sinus rhythm. -ECG: none -Laboratory studies:Interpreted by me as stated above in MDM and shown below. 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 Spinal stenosis Temporomandibular joint disorder Tobacco use disorder Surgical History (Updated 05/06/22 @ 00:42 by Tasneem Hall PA-C) Fusion of spine LUMBAR History of anesthesia reaction BP DROPS History of back surgery L4-S1 fusion 1999 History of tooth extraction Hx of cholecystectomy S/P nasal surgery RE-SET D/T FRACTURE Family History Grandfather (Maternal) Family history of diabetes mellitus Social History Smoking Status: Current every day smoker Tobacco Type: Cigarettes Cigarettes Per Day: pack; Second Hand Exposure: Yes; Do You Dip or Chew Tobacco: No; Hx Alcohol Use: No Hx Substance Use: No Preferred Language: P[place] Communication Ability: Effective Visual Impairment: No Limitations Hearing Ability: Normal Child Care Provider Required: No Beliefs That Will Affect Care: None marital status: Single marital status details: lives with fiancee Current Living Situation: Significant Other current occupational status: employed 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 Home Meds Home Medications Medication Instructions Recorded Confirmed No Known Home Medications 05/05/23 05/05/23 Results & Data (ED) Vital Signs Vital Signs - 24 hr 05/05/23 14:14 05/05/23 14:05 05/05/23 15:05 Temperature 36.6 C Temperature Source Temporal Artery Scan Pulse Rate 89 66 Pulse Rate [Apical] 116 H Pulse Rhythm Regular Pulse Rhythm [Apical] Pulse Strength [Apical] Respiratory Rate 18 16 18 Respiratory Effort / Characteristics Respiratory Depth Respiratory Pattern Blood Pressure [Left Arm] 164/79 H Blood Pressure Mean [Left Arm] 107 Blood Pressure Position [Left Arm] Pulse Oximetry 96 96 98 Oxygen Delivery Method Room Air Sepsis Recent Fever Within 48 Hours No Sepsis New/Unexplained Change in Mental Status N/A Sepsis Action Taken by Nursing No Action Required 05/05/23 15:52 05/05/23 16:05 05/05/23 17:00 Temperature Temperature Source Pulse Rate 66 Pulse Rate [Apical] 72 85 Pulse Rhythm Regular Pulse Rhythm [Apical] Regular Pulse Strength [Apical] Normal Respiratory Rate 18 18 18 Respiratory Effort / Characteristics Non-Labored Spontaneous Non-Labored Spontaneous Respiratory Depth Normal Normal Respiratory Pattern Regular Regular Blood Pressure [Left Arm] 187/92 H 141/87 H Blood Pressure Mean [Left Arm] 123 105 Blood Pressure Position [Left Arm] Sitting Sitting Pulse Oximetry 98 97 98 Oxygen Delivery Method Room Air Room Air Room Air Sepsis Recent Fever Within 48 Hours Sepsis New/Unexplained Change in Mental Status Sepsis Action Taken by Nursing Laboratory Data 05/05/23 14:25 05/05/23 14:25 Lab Results 05/05/23 05/05/23 Range/Units 14:25 14:25 WBC 12.78 H (4.8-10.8) K/ul RBC 5.33 (4.70-6.10) M/uL Hgb 15.4 (14.0-18.0) g/dl Hct 46.1 (42.0-52.0) % MCV 86.5 (80.0-100.0) fL MCH 28.9 (25.0-34.0) pg MCHC 33.4 (32.0-36.0) g/dL RDW Std Deviation 44.7 (36.4-46.3) fL RDW Coeff of Gill 14.2 (11.5-14.5) % Plt Count 317 (130-400) K/uL MPV 11.8 (9.4-12.4) fL Immature Gran % (Auto) 0.4 % Neut % (Auto) 87.2 % Lymph % (Auto) 7.6 % [place] % (Auto) 4.5 % Eos % (Auto) 0.1 % Baso % (Auto) 0.2 % Neut # (Auto) 11.15 H (1.40-6.50) K/uL Lymph # (Auto) 0.97 L (1.20-3.40) K/uL [place] # (Auto) 0.57 (0.11-0.59) K/uL Eos # (Auto) 0.01 (0.00-0.50) K/uL Baso # (Auto) 0.03 (0.00-0.20) K/uL Immature Gran # (Auto) 0.05 (0.01-0.20) K/uL Sodium 141 (136-145) mmol/L Potassium 3.6 (3.5-5.1) mmol/L Chloride 103 (98-107) mmol/L Carbon Dioxide 24 (21-32) mmol/L Anion Gap 14 H (3-11) BUN 7 (6-23) mg/dl Creatinine 0.95 (0.6-1.4) mg/dl Est Cr Clr Drug Dosing 126.2 ml/min Est GFR ( Amer) 115.6 ml/min Est GFR (Non-Af Amer) 99.7 ml/min BUN/Creatinine Ratio 7.4 L (10-20) Glucose 125 H (70-99(Fasting)) mg/dl Calcium 10.8 H (8.6-10.3) mg/dl Total Bilirubin 0.6 (0.2-1.0) mg/dl AST 26 (13-39) U/L ALT 46 (7-52) U/L Alkaline Phosphatase 117 H (34-104) U/L Total Protein 8.4 H (6.0-8.3) gm/dl Albumin 4.7 (3.4-5.0) gm/dl Globulin 3.7 (2.5-4.0) gm/dl Albumin/Globulin Ratio 1.3 (0.9-2) Lipase 7 L (11-82) U/L Administered Medications Discontinued Medications Sodium Chloride (Nss) 500 mls @ 999 mls/hr IV .Q31M STA Stop: 05/05/23 14:48 Last Infusion: 05/05/23 16:11 Dose: 0 mls/hr Documented By: Admin: 05/05/23 15:52 Dose: 999 mls/hr Documented By: CLIF Sodium Chloride (Nss 1000ml) 1,000 mls @ 999 mls/hr IV .Q1H1M ONE Stop: 05/05/23 16:52 Last Infusion: 05/05/23 17:23 Dose: 0 mls/hr Documented By: Admin: 05/05/23 16:03 Dose: 999 mls/hr Documented By: CLIF Piperacillin Sod/Tazobactam (Sod 4.5 gm/ Dextrose) 120 mls @ 200 mls/hr IV NOW ONE; Protocol Stop: 05/05/23 18:02 Last Infusion: 05/05/23 19:39 Dose: 0 mls/hr Documented By: Admin: 05/05/23 18:14 Dose: 200 mls/hr Documented By: CLIF Ioversol (Optiray 320 100ml) 89 ml IV ONCE ONE Stop: 05/05/23 16:58 Last Admin: 05/05/23 16:57 Dose: 89 ml Documented By: MERON Metoclopramide HCl (Metoclopramide Hcl Inj 5 Mg/Ml 2 Ml Vial) 10 mg IV NOW STA Stop: 05/05/23 15:53 Last Admin: 05/05/23 16:03 Dose: 10 mg Documented By: SEBASTIEN Morphine Sulfate (Morphine Sulfate 4 Mg/Ml 1 Ml Carp\Vial) 4 mg IV NOW STA Stop: 05/05/23 15:53 Last Admin: 05/05/23 16:03 Dose: 4 mg Documented By: SEBASTIEN Morphine Sulfate (Morphine Sulfate 10 Mg/Ml Carp/Vial) 6 mg IV NOW STA Stop: 05/05/23 17:28 Last Admin: 05/05/23 19:38 Dose: Not Given Documented By: QUINTIN Morphine Sulfate (Morphine Sulfate 4 Mg/Ml 1 Ml Carp\Vial) 4 mg IV NOW STA Stop: 05/05/23 19:38 Last Admin: 05/05/23 19:41 Dose: 4 mg Documented By: QUINTIN Ondansetron HCl (Ondansetron Inj 2 Mg/Ml 2 Ml Vial) 4 mg IV NOW STA Stop: 05/05/23 14:19 Last Admin: 05/05/23 14:29 Dose: 4 mg Documented By: [facility] Imaging Data Radiologist's Impression: Abdomen/Pelvis CT 05/05/23 16:18 CT OF THE ABDOMEN AND PELVIS WITH CONTRAST CLINICAL HISTORY: Mid abdominal pain. COMPARISON STUDY: CT of the abdomen and pelvis July 20, 2018. TECHNIQUE: Following IV administration of 89 mL of Optiray, axial images of the abdomen and pelvis were obtained from the lung bases to the proximal femurs. Images were reviewed in the axial, sagittal, and coronal planes. IV contrast was administered without complication. Automated exposure control was utilized for the study. A dose lowering technique was utilized adhering to the principles of ALARA. CT DOSE: 1421.26 mGy.cm FINDINGS: No pneumatosis, free air or portal venous gas is present. There is no biliary ductal dilatation status post cholecystectomy. Spleen, adrenal glands and pancreas are unremarkable. There is a 3 mm calculus within the upper pole of the left kidney. There are no ureteral calculi. There is no hydronephrosis. An 8 mm lesion arising from the lower pole of the right kidney on axial image 180 of 401 is too small to characterize. This was not present on prior CT. A 9 mm lesion within the midpole the left kidney is also too small to characterize. There is no evidence for a bowel obstruction. There is moderate wall thickening of the proximal sigmoid colon with minimal adjacent stranding. There is sigmoid diverticulosis. No free air or abscess is present. IMPRESSION: 1. Moderate short segment wall thickening with mild adjacent infiltration adjacent to the sigmoid colon with diverticulosis. The findings suggest mild acute sigmoid diverticulitis. No free air or abscess. Nonemergent colonoscopy once symptoms resolve is recommended to exclude the less likely possibility of an underlying colonic lesion. 2. Subcentimeter bilateral renal lesions. These are too small to characterize. An 8 mm right lower pole lesion is new since prior CT. Follow-up renal protocol MRI in 6 months for further evaluation is recommended. 3. 3 mm left renal calculus. ACT 112: Positive. There are findings on this exam that require communication between the performing entity and the patient following Patient Test Result Information Act ([place] Act 112) guidelines. Electronically signed by: Ankit Del Rio M.D. 05/05/2023 5:21 PM Discharge Plan Visit Data Chief Complaint: Vomiting Stated Complaint: ABDOMINAL PAIN, LIGHT HEADED, VOMITING ED Provider: Migue Hein Discharge Problem: Diverticulitis, Abnormal CT of the abdomen, Abdominal pain Patient Disposition: Admitted As Inpatient Discharge Instructions Interventions: ED Discharge Assessment Last Done: 05/05/23 20:36
[2023-05-05 16:45] LABS: Appearance Urine Clear (Clear); Bacteria Urine Automated Negative (Negative); Bilirubin Urine Negative (Negative); Blood Urine Negative (Negative); Color Urine Dark Yellow; Glucose Urine UA Negative (Negative); Ketones Urine Trace (Negative); Leukocyte Esterase Urine Negative (Negative); Nitrite Urine Negative (Negative); RBC Urine Automated 0-4 /hpf (0-4); Specific Gravity Urine 1.024 (1.000-1.030); Urobilinogen Urine Negative (Negative); pH Urine >= 9.0 (4.5-7.5)
[2023-05-05 16:47] LABS: Protein Urine 2+ (Negative)
[2023-05-05] MEDS ORDERED: OPTIRAY 320 100ml IV ONE (16:57)
--- NOTE | 2023-05-05 17:22 | CT Scan Report ---
CT OF THE ABDOMEN AND PELVIS WITH CONTRAST CLINICAL HISTORY: Mid abdominal pain. COMPARISON STUDY: CT of the abdomen and pelvis July 20, 2018. TECHNIQUE: Following IV administration of 89 mL of Optiray, axial images of the abdomen and pelvis we re obtained from the lung bases to the proximal femurs. Images were reviewed in the axial, sagittal, and coronal planes. IV contrast was administered without complication. Automated exposure control wa s utilized for the study. A dose lowering technique was utilized adhering to the principles of ALARA . CT DOSE: 1421.26 mGy.cm FINDINGS: No pneumatosis, free air or portal venous gas is present. There is no biliary ductal dilata tion status post cholecystectomy. Spleen, adrenal glands and pancreas are unremarkable. There is a 3 mm calculus within the upper pole of the left kidney. There are no ureteral calculi. There is no hydr onephrosis. An 8 mm lesion arising from the lower pole of the right kidney on axial image 180 of 401 is too small to characterize. This was not present on prior CT. A 9 mm lesion within the midpole the left kidney is also too small to characterize. There is no evidence for a bowel obstruction. There is moderate wall thickening of the proximal sigmoid colon with minimal adjacent stranding. There is sig moid diverticulosis. No free air or abscess is present. IMPRESSION: 1. Moderate short segment wall thickening with mild adjacent infiltration adjacent to the sigmoid col on with diverticulosis. The findings suggest mild acute sigmoid diverticulitis. No free air or absces s. Nonemergent colonoscopy once symptoms resolve is recommended to exclude the less likely possibilit y of an underlying colonic lesion. 2. Subcentimeter bilateral renal lesions. These are too small to characterize. An 8 mm right lower po le lesion is new since prior CT. Follow-up renal protocol MRI in 6 months for further evaluation is r ecommended. 3. 3 mm left renal calculus. ACT 112: Positive. There are findings on this exam that require communication between the performing entity and the patient following Patient Test Result Information Act ([place] Act 112) guidelines. Electronically signed by: Ankit Del Rio M.D. 05/05/2023 5:21 PM
[2023-05-05] MEDS ORDERED: MoRPHine SULFATE 10 MG/ML CARP/VIAL IV STA (17:27)
[2023-05-05] MEDS ORDERED: PIPERACILLIN/TAZOBACTAM 4.5 GM in DEXTROSE 5% 100 ML IV ONE (17:27)
--- NOTE | 2023-05-05 18:57 | History & Physical Report ---
Date of Service May 05, 2023 Assessment & Plan (1) Diverticulitis: Plan: nausea/vomiting, epigastric pain poss. blood w/ vomiting CT abdomen/pelvis Moderate short segment wall thickening with mild adjacent infiltration adjacent to the sigmoid colon with diverticulosis. The findings suggest mild acute sigmoid diverticulitis. No free air or abscess. Nonemergent colonoscopy once symptoms resolve is recommended to exclude the less likely possibility of an underlying colonic lesion. WBC 12K - NPO - stool pcr - cont. IV zosyn - cont. IVF - IV PPI - pain management, antiemetics - GI consult (2) Abnormal CT of the abdomen: Plan: Subcentimeter bilateral renal lesions. These are too small to characterize. An 8 mm right lower pole lesion is new since prior CT. Follow-up renal protocol MRI in 6 months for further evaluation is recommended. History of Present Illness Chief Complaint: Abdominal pain, n/v Primary Care Provider: NO PCP Pt is 42 y/o M with history of spinal stenosis and history of osteomyelitis of lumbar spine, history of cholecystectomy for acute cholecystitis, however no other significant medical history. Patient does not see primary care provider, and denies taking any medications. Yesterday in the morning he woke up with abdominal pain, nausea vomiting. Denies anything unusual the night before or the day before. Reports feeling well, eating well. Since yesterday morning he cannot keep anything down, and has been vomiting whole day. Patient reports that he has been also vomiting today, and per report when he was vomiting in the ED, he felt like passing out. CT abdomen pelvis was obtained in the emergency room, and showed mild sigmoid diverticulitis. Patient reports mostly epigastric pain, and denies lower abdominal pain. He also reports some specks of blood with vomiting. Denies any fever, chills, chest pain or shortness of breath. In the ED he was started on IV Zosyn, IV fluids, and antiemetics. He does not feel much improved at the moment. Allergies Allergy/AdvReac Type Severity Reaction Status Date / Time propoxyphene Allergy Intermediate TONGUE Verified 10/27/21 13:22 NUMBNESS tramadol Allergy Intermediate swelling Verified 10/27/21 13:22 ketorolac AdvReac Intermediate FACIAL Verified 10/27/21 13:22 SWELLING/THROAT SWELLING acetaminophen [From Tylenol] AdvReac Unknown TOLD TO Verified 10/27/21 13:22 STAY AWAY FROM USING THIS MED. 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 Spinal stenosis Temporomandibular joint disorder Tobacco use disorder Surgical History (Updated 05/06/22 @ 00:42 by Tasneem Hall PA-C) Fusion of spine LUMBAR History of anesthesia reaction BP DROPS History of back surgery L4-S1 fusion 1999 History of tooth extraction Hx of cholecystectomy S/P nasal surgery RE-SET D/T FRACTURE Family History Grandfather (Maternal) Family history of diabetes mellitus Social History Smoking Status: Current every day smoker Tobacco Type: Cigarettes Cigarettes Per Day: pack; Second Hand Exposure: Yes; Do You Dip or Chew Tobacco: No; Hx Alcohol Use: No Hx Substance Use: No Preferred Language: Korean Communication Ability: Effective Visual Impairment: No Limitations Hearing Ability: Normal Furnace Firer Required: No Beliefs That Will Affect Care: None marital status: Single marital status details: lives with nichole Current Living Situation: Significant Other current occupational status: employed 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 Feels Safe at Home: Yes Assistive Devices: None Review of Systems Review of Systems: All systems reviewed & are unremarkable except as noted in HPI & below Physical Exam Constitutional: WD/WN, vitals as above Eyes: PERRL, conjunctivae normal, anicteric sclerae ENMT: external ear and nose normal, oropharynx normal Neck: trachea midline, no thyromegaly Respiratory: normal respiratory effort, lungs clear to auscultation Cardiovascular: RRR, no murmur, no edema Chest (Breasts): Chest: normal inspection of chest Gastrointestinal (Abdomen): Inspection/Auscultation: abdomen normal to inspection tender to palpation at epigastric region Musculoskeletal: no cyanosis or clubbing, extremities motor strength 5/5 Skin: no rashes, warm and dry (multiple tattoos) Neurologic: PERRL, EOMI, accommodation nl, no face palsy, no dysarthria Results & Data Results & Data Vital Signs (Past 12 Hours) Vital Signs Temp Pulse Pulse Resp BP Pulse Ox O2 Del Method 05/05/23 17:00 85 18 141/87 H 98 Room Air 05/05/23 16:05 72 18 187/92 H 97 Room Air 05/05/23 15:52 66 18 98 Room Air 05/05/23 15:05 66 18 98 Room Air 05/05/23 14:05 116 H 16 164/79 H 96 05/05/23 14:14 36.6 C 89 18 96 Laboratory Results 05/05/23 05/05/23 05/05/23 Range/Units Unknown 14:25 14:25 WBC 12.78 H (4.8-10.8) K/ul RBC 5.33 (4.70-6.10) M/uL Hgb 15.4 (14.0-18.0) g/dl Hct 46.1 (42.0-52.0) % MCV 86.5 (80.0-100.0) fL MCH 28.9 (25.0-34.0) pg MCHC 33.4 (32.0-36.0) g/dL RDW Std Deviation 44.7 (36.4-46.3) fL RDW Coeff of Gill 14.2 (11.5-14.5) % Plt Count 317 (130-400) K/uL MPV 11.8 (9.4-12.4) fL Immature Gran % (Auto) 0.4 % Neut % (Auto) 87.2 % Lymph % (Auto) 7.6 % [place] % (Auto) 4.5 % Eos % (Auto) 0.1 % Baso % (Auto) 0.2 % Neut # (Auto) 11.15 H (1.40-6.50) K/uL Lymph # (Auto) 0.97 L (1.20-3.40) K/uL [place] # (Auto) 0.57 (0.11-0.59) K/uL Eos # (Auto) 0.01 (0.00-0.50) K/uL Baso # (Auto) 0.03 (0.00-0.20) K/uL Immature Gran # (Auto) 0.05 (0.01-0.20) K/uL Sodium 141 (136-145) mmol/L Potassium 3.6 (3.5-5.1) mmol/L Chloride 103 (98-107) mmol/L Carbon Dioxide 24 (21-32) mmol/L Anion Gap 14 H (3-11) BUN 7 (6-23) mg/dl Creatinine 0.95 (0.6-1.4) mg/dl Est Cr Clr Drug Dosing 126.2 ml/min Est GFR ( Amer) 115.6 ml/min Est GFR (Non-Af Amer) 99.7 ml/min BUN/Creatinine Ratio 7.4 L (10-20) Glucose 125 H (70-99(Fasting)) mg/dl Calcium 10.8 H (8.6-10.3) mg/dl Total Bilirubin 0.6 (0.2-1.0) mg/dl AST 26 (13-39) U/L ALT 46 (7-52) U/L Alkaline Phosphatase 117 H (34-104) U/L Total Protein 8.4 H (6.0-8.3) gm/dl Albumin 4.7 (3.4-5.0) gm/dl Globulin 3.7 (2.5-4.0) gm/dl Albumin/Globulin Ratio 1.3 (0.9-2) Lipase 7 L (11-82) U/L Urine Color Dark Yellow Urine Appearance Clear (Clear) Urine pH >= 9.0 H (4.5-7.5) Ur Specific [place] 1.024 (1.000-1.030) Urine Protein 2+ H (Negative) Urine Glucose (UA) Negative (Negative) Urine Ketones Trace H (Negative) Urine Blood Negative (Negative) Urine Nitrite Negative (Negative) Urine Bilirubin Negative (Negative) Urine Urobilinogen Negative (Negative) Ur Leukocyte Esterase Negative (Negative) Urine WBC (Auto) 1-5 (0-5) /hpf Urine RBC (Auto) 0-4 (0-4) /hpf U Hyaline Cast (Auto) 1-5 (0-5) /lpf U Epithel Cells (Auto) 10-20 H (0-5) /lpf Urine Bacteria (Auto) Negative (Negative) Diagnostic Findings CT abdomen/pelvis FINDINGS: No pneumatosis, free air or portal venous gas is present. There is no biliary ductal dilatation status post cholecystectomy. Spleen, adrenal glands and pancreas are unremarkable. There is a 3 mm calculus within the upper pole of the left kidney. There are no ureteral calculi. There is no hydronephrosis. An 8 mm lesion arising from the lower pole of the right kidney on axial image 180 of 401 is too small to characterize. This was not present on prior CT. A 9 mm lesion within the midpole the left kidney is also too small to characterize. There is no evidence for a bowel obstruction. There is moderate wall thickening of the proximal sigmoid colon with minimal adjacent stranding. There is sigmoid diverticulosis. No free air or abscess is present. IMPRESSION: 1. Moderate short segment wall thickening with mild adjacent infiltration adjacent to the sigmoid colon with diverticulosis. The findings suggest mild acute sigmoid diverticulitis. No free air or abscess. Nonemergent colonoscopy once symptoms resolve is recommended to exclude the less likely possibility of an underlying colonic lesion. 2. Subcentimeter bilateral renal lesions. These are too small to characterize. An 8 mm right lower pole lesion is new since prior CT. Follow-up renal protocol MRI in 6 months for further evaluation is recommended. 3. 3 mm left renal calculus. Code Status & VTE Plan VTE Prophylaxis Plan VTE Prophylaxis will be ordered: Yes
[2023-05-05] MEDS ORDERED: ACETAMINOPHEN 325 MG TAB PO PRN (20:54)
[2023-05-05] MEDS ORDERED: POLYETHYLENE (MIRALAX) 17 GM PACK PO PRN (20:54)
[2023-05-05] MEDS ORDERED: MAGNESIUM HYDROXIDE SUSP 30 ML UDC PO PRN (20:54)
[2023-05-05] MEDS ORDERED: ALUMINUM/MAGNESIUM SUSP 30 ML UDC PO PRN (20:54)
[2023-05-05] MEDS ORDERED: ONDANSETRON INJ 2 MG/ML 2 ML VIAL IV PRN (20:54)
[2023-05-05] MEDS: PIPERACILLIN/TAZOBACTAM 4.5 GM in DEXTROSE 5% 100 ML IV SCH (21:14)
[2023-05-05] MEDS: PANTOprazole 40 MG in SYRINGE 0 ML IV SCH (21:14)
[2023-05-05] MEDS: MoRPHine SULFATE 4 MG/ML 1 ML CARP\\VIAL IV PRN (22:36)
[2023-05-05] MEDS: SODIUM CHLOR 0.45% + 20MEQ KCL 20 MEQ/1,000 ML BAG IV SCH (22:38)
[2023-05-06] MEDS: MoRPHine SULFATE 4 MG/ML 1 ML CARP\\VIAL IV PRN ×4 (02:27→13:05)
[2023-05-06] MEDS: PIPERACILLIN/TAZOBACTAM 4.5 GM in DEXTROSE 5% 100 ML IV SCH (06:22)
[2023-05-06 08:42] LABS: Hematocrit (blood only) 39.4 % (42.0-52.0); Hemoglobin 13.5 g/dl (14.0-18.0); Mean Corpuscular Hemoglobin 29.2 pg (25.0-34.0); Mean Corpuscular Hgb Conc 34.3 g/dL (32.0-36.0); Mean Corpuscular Volume 85.1 fL (80.0-100.0); Mean Platelet Volume 11.9 fL (9.4-12.4); Platelet Count 253 K/uL (130-400); RDW Coefficient of Variation 14.6 % (11.5-14.5); RDW Standard Deviation 44.7 fL (36.4-46.3); Red Blood Count 4.63 M/uL (4.70-6.10)
[2023-05-06 09:09] LABS: Albumin Globulin Ratio 1.4 (0.9-2); BUN Creatinine Ratio 7.1 (10-20); Bilirubin,Total 0.6 mg/dl (0.2-1.0); Calcium 9.3 mg/dl (8.6-10.3); Est GFR (African American) 126.9 ml/min; Est GFR (Non-African American) 109.5 ml/min; Globulin 2.9 gm/dl (2.5-4.0); Magnesium 1.8 mg/dl (1.7-2.4); Potassium 3.6 mmol/L (3.5-5.1); Total Protein 6.9 gm/dl (6.0-8.3)
[2023-05-06] MEDS: PANTOprazole 40 MG in SYRINGE 0 ML IV SCH (09:24)
--- NOTE | 2023-05-06 09:51 | Gastrointestinal Consultation ---
Date of Consultation May 06, 2023 Assessment & Plan (1) Diverticulitis: (2) Abdominal pain: Plan 1. Clear liquid diet. Advance to low residue diet as tolerated. 2. Continue IV Zosyn while inpatient. Will need oral antibiotics upon discharge for a total of 10 days. 3. Antiemetics/analgesics PRN as prescribed. 4. Outpatient colonoscopy in 8 weeks which will be arranged by our office. Supervising Physician Co-Signing Physician Notes Patient signed out against medical advice before I could see him. History of Present Illness Reason for Consultation: Diverticulitis Requesting Physician: Dr. Pino Attending Physician: America Salcedo MD History of Present Illness Patient is a 42 y.o. male with a history of abnormal CT imaging in 2018 that demonstrated a nonspecific colitis prompting the patient to undergo a diagnostic colonoscopy which was unremarkable at that time. States he was doing well from a GI standpoint and not having any bowel irregularities until two days ago. Suddenly, he developed sharp epigastric and periumbilical pain with associated nausea with vomiting that prompted ER evaluation last evening. He was found to have a mild leukocytosis of 13.5. CT imaging consistent with mild, acute sigmoid diverticulitis without abscess or perforation. He has been made NPO and started on IV Zosyn. GI consulted has been requested in this regard. Currently, he reports ongoing abdominal pain. Describes the pain as sharp, non-radiating and rated 9/10 in intensity at present. No further vomiting. No fevers or chills. Allergies Allergy/AdvReac Type Severity Reaction Status Date / Time propoxyphene Allergy Intermediate TONGUE Verified 10/27/21 13:22 NUMBNESS tramadol Allergy Intermediate swelling Verified 10/27/21 13:22 ketorolac AdvReac Intermediate FACIAL Verified 10/27/21 13:22 SWELLING/THROAT SWELLING acetaminophen [From Tylenol] AdvReac Unknown TOLD TO Verified 10/27/21 13:22 STAY AWAY FROM USING THIS MED. 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 Spinal stenosis Temporomandibular joint disorder Tobacco use disorder Surgical History Fusion of spine LUMBAR History of anesthesia reaction BP DROPS History of back surgery L4-S1 fusion 1999 History of tooth extraction Hx of cholecystectomy S/P nasal surgery RE-SET D/T FRACTURE Family History Grandfather (Maternal) Family history of diabetes mellitus Social History Smoking Status: Current every day smoker Tobacco Type: Cigarettes Cigarettes Per Day: 1 pack; Second Hand Exposure: No; Do You Dip or Chew Tobacco: No; Tobacco Cessation Education Requested by Patient: No Hx Alcohol Use: No Hx Substance Use: No Preferred Language: Iraqi Communication Ability: Effective Visual Impairment: No Limitations Hearing Ability: Normal 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: No Beliefs That Will Affect Care: None marital status: Single marital status details: lives with nichole Current Living Situation: Significant Other current occupational status: employed 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 Other Information That Helps Us Care for You: No Feels Safe at Home: Yes Safety Concerns: Feels Safe At This Time Assistive Devices: None Review of Systems Constitutional: as per Subjective / HPI Gastrointestinal: as per Subjective / HPI Physical Exam Constitutional: WD/WN, vitals as above Eyes: EOM intact bilaterally Neck: normal appearance Respiratory: normal respiratory effort, lungs clear to auscultation Cardiovascular: Rate/Rhythm: regular rate and regular rhythm Heart Sounds: no gallop and no murmur Gastrointestinal (Abdomen): Inspection/Auscultation: + abdomen distended and + hyperactive bowel sounds Percussion/Palpation: + abdomen tender and abdomen soft; no guarding and abdomen not rigid Musculoskeletal: Extremities: no cyanosis no lower extremity edema Skin: no rashes, warm and dry Neurologic: moves all extremities Psychiatric: A+Ox3, euthymic affect Results & Data Vital Signs (Past 12 Hours) Vital Signs Temp Pulse Pulse Resp BP Pulse Ox O2 Del Method 05/06/23 07:30 37.1 C 70 16 184/77 H 98 Room Air 05/06/23 02:03 72 05/05/23 22:29 36.9 C 68 18 189/84 H 100 Room Air 05/05/23 22:52 36.9 C 71 16 178/70 H 96 Room Air Diagnostic Findings Laboratory Results WBC 13.50 K/ul (4.8-10.8) H 05/06/23 07:58 RBC 4.63 M/uL (4.70-6.10) L 05/06/23 07:58 Hgb 13.5 g/dl (14.0-18.0) L 05/06/23 07:58 Hct 39.4 % (42.0-52.0) L 05/06/23 07:58 MCV 85.1 fL (80.0-100.0) 05/06/23 07:58 MCH 29.2 pg (25.0-34.0) 05/06/23 07:58 MCHC 34.3 g/dL (32.0-36.0) 05/06/23 07:58 RDW Std Deviation 44.7 fL (36.4-46.3) 05/06/23 07:58 RDW Coeff of Gill 14.6 % (11.5-14.5) H 05/06/23 07:58 Plt Count 253 K/uL (130-400) 05/06/23 07:58 MPV 11.9 fL (9.4-12.4) 05/06/23 07:58 Immature Gran % (Auto) 0.4 % 05/05/23 14:25 Neut % (Auto) 87.2 % 05/05/23 14:25 Lymph % (Auto) 7.6 % 05/05/23 14:25 Karnes % (Auto) 4.5 % 05/05/23 14:25 Eos % (Auto) 0.1 % 05/05/23 14:25 Baso % (Auto) 0.2 % 05/05/23 14:25 Neut # (Auto) 11.15 K/uL (1.40-6.50) H 05/05/23 14:25 Lymph # (Auto) 0.97 K/uL (1.20-3.40) L 05/05/23 14:25 [place] # (Auto) 0.57 K/uL (0.11-0.59) 05/05/23 14:25 Eos # (Auto) 0.01 K/uL (0.00-0.50) 05/05/23 14:25 Baso # (Auto) 0.03 K/uL (0.00-0.20) 05/05/23 14:25 Immature Gran # (Auto) 0.05 K/uL (0.01-0.20) 05/05/23 14:25 Sodium 138 mmol/L (136-145) 05/06/23 07:58 Potassium 3.6 mmol/L (3.5-5.1) 05/06/23 07:58 Chloride 106 mmol/L (98-107) 05/06/23 07:58 Carbon Dioxide 25 mmol/L (21-32) 05/06/23 07:58 Anion Gap 7 (3-11) 05/06/23 07:58 BUN 6 mg/dl (6-23) 05/06/23 07:58 Creatinine 0.84 mg/dl (0.6-1.4) 05/06/23 07:58 Est Cr Clr Drug Dosing 146.0 ml/min 05/06/23 07:58 Est GFR ( Amer) 126.9 ml/min 05/06/23 07:58 Est GFR (Non-Af Amer) 109.5 ml/min 05/06/23 07:58 BUN/Creatinine Ratio 7.1 (10-20) L 05/06/23 07:58 Glucose 104 mg/dl (70-99(Fasting)) H 05/06/23 07:58 Calcium 9.3 mg/dl (8.6-10.3) 05/06/23 07:58 Magnesium 1.8 mg/dl (1.7-2.4) 05/06/23 07:58 Total Bilirubin 0.6 mg/dl (0.2-1.0) 05/06/23 07:58 AST 26 U/L (13-39) 05/06/23 07:58 ALT 32 U/L (7-52) 05/06/23 07:58 Alkaline Phosphatase 86 U/L (34-104) 05/06/23 07:58 Total Protein 6.9 gm/dl (6.0-8.3) 05/06/23 07:58 Albumin 4.0 gm/dl (3.4-5.0) 05/06/23 07:58 Globulin 2.9 gm/dl (2.5-4.0) 05/06/23 07:58 Albumin/Globulin Ratio 1.4 (0.9-2) 05/06/23 07:58 Lipase 7 U/L (11-82) L 05/05/23 14:25 Urine Color Dark Yellow 05/05/23 Unknown Urine Appearance Clear (Clear) 05/05/23 Unknown Urine pH >= 9.0 (4.5-7.5) H 05/05/23 Unknown Ur Specific [place] 1.024 (1.000-1.030) 05/05/23 Unknown Urine Protein 2+ (Negative) H 05/05/23 Unknown Urine Glucose (UA) Negative (Negative) 05/05/23 Unknown Urine Ketones Trace (Negative) H 05/05/23 Unknown Urine Blood Negative (Negative) 05/05/23 Unknown Urine Nitrite Negative (Negative) 05/05/23 Unknown Urine Bilirubin Negative (Negative) 05/05/23 Unknown Urine Urobilinogen Negative (Negative) 05/05/23 Unknown Ur Leukocyte Esterase Negative (Negative) 05/05/23 Unknown Urine WBC (Auto) 1-5 /hpf (0-5) 05/05/23 Unknown Urine RBC (Auto) 0-4 /hpf (0-4) 05/05/23 Unknown U Hyaline Cast (Auto) 1-5 /lpf (0-5) 05/05/23 Unknown U Epithel Cells (Auto) 10-20 /lpf (0-5) H 05/05/23 Unknown Urine Bacteria (Auto) Negative (Negative) 05/05/23 Unknown Impressions Abdomen/Pelvis CT 05/05/23 16:18 CT OF THE ABDOMEN AND PELVIS WITH CONTRAST CLINICAL HISTORY: Mid abdominal pain. COMPARISON STUDY: CT of the abdomen and pelvis July 20, 2018. TECHNIQUE: Following IV administration of 89 mL of Optiray, axial images of the abdomen and pelvis were obtained from the lung bases to the proximal femurs. Images were reviewed in the axial, sagittal, and coronal planes. IV contrast was administered without complication. Automated exposure control was utilized for the study. A dose lowering technique was utilized adhering to the principles of ALARA. CT DOSE: 1421.26 mGy.cm FINDINGS: No pneumatosis, free air or portal venous gas is present. There is no biliary ductal dilatation status post cholecystectomy. Spleen, adrenal glands and pancreas are unremarkable. There is a 3 mm calculus within the upper pole of the left kidney. There are no ureteral calculi. There is no hydronephrosis. An 8 mm lesion arising from the lower pole of the right kidney on axial image 180 of 401 is too small to characterize. This was not present on prior CT. A 9 mm lesion within the midpole the left kidney is also too small to characterize. There is no evidence for a bowel obstruction. There is moderate wall thickening of the proximal sigmoid colon with minimal adjacent stranding. There is sigmoid diverticulosis. No free air or abscess is present. IMPRESSION: 1. Moderate short segment wall thickening with mild adjacent infiltration adjacent to the sigmoid colon with diverticulosis. The findings suggest mild acute sigmoid diverticulitis. No free air or abscess. Nonemergent colonoscopy once symptoms resolve is recommended to exclude the less likely possibility of an underlying colonic lesion. 2. Subcentimeter bilateral renal lesions. These are too small to characterize. An 8 mm right lower pole lesion is new since prior CT. Follow-up renal protocol MRI in 6 months for further evaluation is recommended. 3. 3 mm left renal calculus. ACT 112: Positive. There are findings on this exam that require communication between the performing entity and the patient following Patient Test Result Information Act ([place] Act 112) guidelines. Electronically signed by: Ankit Del Rio M.D. 05/05/2023 5:21 PM PG Care Time/CCT Total # of Minutes Spent Total Time Spent with Patient: Total time spent is greater than 50% in coordination of care (as documented) at patient's floor/unit and/or counseling patient: Coding Level of Care Code 44157 OFFICE CONSULT LVL M Diagnoses Diverticulitis K57.92 Abdominal pain R10.9
[2023-05-06] MEDS ORDERED: hydrALAZINE HCL 20 MG/ML VIAL IV ONE (11:32)
[2023-05-06] MEDS ORDERED: amLODIPine BESYLATE 5 MG TAB PO ONE (11:45)
[2023-05-06] MEDS: SODIUM CHLOR 0.45% + 20MEQ KCL 20 MEQ/1,000 ML BAG IV SCH (11:45)
--- NOTE | 2023-05-06 15:30 | Discharge Summary ---
Discharge Summary Date of Service May 06, 2023 Notes For Next Care Provider Patient left AMA after evaluation this am Pertinent imaging findings require follow up OP: CT report with signs sigmoid diverticulitis characterized as bowel wall thickening; however could not r/o underlying lesion. Would consider pursuing OP c-scope given patient's symptoms were more epigastric and less consistent with acute diverticulitis Subcentimeter renal lesions on CT, new 8mm right lower pole lesion--recommended renal MRI in 6 months Renal calculus noted as well, but asymptomatic, normal renal function Medication Changes From Visit -Attempted to start antihypertensive given trend of persistent elevated BBP >140 in hospital review - Was on IV Zosyn for diverticulitis with plans to transition to PO upon discharge Admission HPI Per Admitting Provider Pt is 42 y/o M with history of spinal stenosis and history of osteomyelitis of lumbar spine, history of cholecystectomy for acute cholecystitis, however no other significant medical history. Patient does not see primary care provider, and denies taking any medications. Yesterday in the morning he woke up with abdominal pain, nausea vomiting. Denies anything unusual the night before or the day before. Reports feeling well, eating well. Since yesterday morning he cannot keep anything down, and has been vomiting whole day. Patient reports that he has been also vomiting today, and per report when he was vomiting in the ED, he felt like passing out. CT abdomen pelvis was obtained in the emergency room, and showed mild sigmoid diverticulitis. Patient reports mostly epigastric pain, and denies lower abdominal pain. He also reports some specks of blood with vomiting. Denies any fever, chills, chest pain or shortness of breath. In the ED he was started on IV Zosyn, IV fluids, and antiemetics. He does not feel much improved at the moment. Admission Exam Per Admitting Provider Constitutional: WD/WN, vitals as above Eyes: PERRL, conjunctivae normal, anicteric sclerae ENMT: external ear and nose normal, oropharynx normal Neck: trachea midline, no thyromegaly Respiratory: normal respiratory effort, lungs clear to auscultation Cardiovascular: RRR, no murmur, no edema Chest (Breasts): Chest: normal inspection of chest Gastrointestinal (Abdomen): Inspection/Auscultation: abdomen normal to inspection tender to palpation at epigastric region Musculoskeletal: no cyanosis or clubbing, extremities motor strength 5/5 Skin: no rashes, warm and dry (multiple tattoos) Neurologic: PERRL, EOMI, accommodation nl, no face palsy, no dysarthria Principal Dx & Hospital Course #1 = Principal Diagnosis (1) Acute epigastric pain: (2) Diverticulitis: (3) Abnormal CT of the abdomen: (4) Hypertension: Plan Mr. Landaverde is a 42 year old gentleman who was admitted for concerns of epigastric abdominal pain that was acute in onset. Imaging revealed signs concerning for diverticulitis; however, symptoms did not seem consistent. GI consulted for further evaluation with plans to treat as uncomplicated diverticulitis. Imaging also revealed renal lesions that will require future follow up. Upon evaluating patient on 05/06, he was in good spirits endorsing appetite and feeling improved overnight. The plan with GI was reiterated with patient and we discussed his admission plan. At approximately 1435, text page came from nurse stating patient left AMA prior to notifying physician. Reportedly patient became agitated when walking outside of unit after being told to return to his room, thus prompting his desire to leave. #Acute epigastric pain -24 hours of nausea/vomiting and subxiphoid epigastric pain; denies any hematemesis, lipase 7, LFTs normal -Endorsed appetite this am -Advance diet as tolerated, seemed to tolerate liquid diet without difficulty -Left ama before further assessment completed #Sigmoid Diverticulitis CT abdomen/pelvis Moderate short segment wall thickening with mild adjacent infiltration adjacent to the sigmoid colon with diverticulosis. The findings suggest mild acute sigmoid diverticulitis. No free air or abscess. Nonemergent colonoscopy once symptoms resolve is recommended to exclude the less likely possibility of an underlying colonic lesion. -Leukocytosis on admission -Plan to continue zosyn with transition to PO abx upon discharge for 10 day course; however, patient left ama -Recommended future c-scope #Abnormal CT Subcentimeter bilateral renal lesions. These are too small to characterize. An 8 mm right lower pole lesion is new since prior CT. Renal calculus 3mm Follow-up renal protocol MRI in 6 months for further evaluation is recommended. #Hypertension Persistently hypertensive despite pain control, historically >140s SBP -Gave hydralazine for pressures >180s with plans to start amlodipine for chronic management -AMA Discharge Exam Physical exam from this morning prior to AMA Constitutional No distress, hypertensive, ambulating the halls Eyes PERRL, conjunctivae normal, anicteric sclerae ENMT external ear and nose normal, oropharynx normal Neck trachea midline, no thyromegaly Respiratory normal respiratory effort, lungs clear to auscultation Cardiovascular RRR, no murmur, no edema Gastrointestinal (Abdomen) tenderness to deep palpation in epigastrium, BS + Musculoskeletal no cyanosis or clubbing, extremities motor strength 5/5 Skin no rashes, warm and dry Neurologic PERRL, EOMI, accommodation nl, no face palsy, no dysarthria Psychiatric A+Ox3, euthymic affect Updated Medication List Medication Instructions Recorded Confirmed Type No Known Home Medications 05/05/23 05/05/23 History Hospital Stay Data Consultations 05/05/23 18:05 ED Decision to Admit Stat 05/05/23 20:54 Consult Gastroenterology Routine Diagnostic Imagining Performed 05/05/23 16:18 CT abd pelvis IV con only Stat Total Time Total Time Spent Total Time Spent (In Minutes): Time spent evaluating patient, direct bedside care, chart review, placing discharge orders, interpretation of diagnostic studies, discussion with consultants, patient, as well as other required patient management activities is 45 minutes.
[2023-05-07] MEDS ORDERED: amLODIPine BESYLATE 5 MG TAB PO SCH (09:00)
--- NOTE | 2023-05-10 08:02 | Electrocardiogram Report ---
Test Reason : Blood Pressure : / mmHG Vent. Rate : 064 BPM Atrial Rate : 064 BPM P-R Int : 146 ms QRS Dur : 100 ms QT Int : 416 ms P-R-T Axes : 041 053 041 degrees QTc Int : 429 ms Normal sinus rhythm Normal ECG When compared with ECG of 20-JAN-2019 08:35, No significant change Confirmed by Quang Conner ([id number]) on 05/10/2023 8:02:24 AM Referred By: REFERRED SELF Confirmed By:Quang Conner
--- OUTSIDE RECORDS SUMMARY | 2023-05-10 15:53 | External Medical Summary | Continuity of Care Document ---
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 Name Role Phone Shilpa Cisneros Primary Care Physician [phone] Encounter [facility] [id number] Date(s): 08/13/21 - 08/13/[address], [address] [place] [address] [phone] Encounter Diagnosis Body mass index [BMI] 31.0-31.9, adult(Discharge Diagnosis) - 08/13/21 Elevated white blood cell count(Discharge Diagnosis) - 08/13/21 Back pain(Discharge Diagnosis) - 08/13/21 Abnormal CBC(Discharge Diagnosis) - 08/13/21 Discharge Disposition: Home or Self Care Attending Physician: CULLEN Cisneros Susan M Referring Physician: CULLEN Cisneros Susan M Allergies, Adverse Reactions, Alerts Substance Reaction Severity Status Toradol swelling in face/throat Acti ve Ultram swelling face/throat Active Darvocet A500 numbness in tongue Active Assessment and Plan Extracted from: Title:Pain lower back and abnormal CBC Author:CULLEN Nieto Susan M Date:08/13/21 1.Back pain Secondary to back injury- hx of osteomyelitis which has resolved.- see MRI report . Discussion of making the appt at [facility] Pain management. A short course of Oxycodone 5 mg was given- #20 tabs until he is seen at the pain center.Controlled substance agreement is up to date for today's prescriptions 2.Abnormal CBC WBC elevated- will plan repeat CBC. Orders: oxyCODONE, Start: 08/13/21 16:27:00 EST, 1 tab, PO, q6h, Disp# 20 tab, X 5 day, Refills: 0, with food, Note to Pharmacy: PDMP verified, PRN: as needed for pain, Stop: 08/18/21 16:27:00 EST, Pharmacy: [id number] Immunizations Given and Recorded Vaccine Date Status Refusal Reason SARS-CoV-2 (COVID-19) Ad26 vaccine 1 01/08/21 Ang rded 1Result Comment: 2021-06-19: Historical information-source unspecified Medications diclofenac sodium 75 mg oral delayed release tablet Start: 06/19/21 10:19:00 EDT, 1 tab, PO, q12h, Disp# 60 tab, Refills: 2, with food, PRN: as needed for pain, Pharmacy: [id number] Start Date: 06/19/21 Status: Ordered Flexeril 5 mg oral tablet Start: 06/19/21 10:16:00 EDT, 1 tab, PO, bid, Disp# 60 tab, Refills: 1, prn muscle spasm, PRN: as needed for spasm, Pharmacy: [id number] Start Date: 06/19/21 Status: Ordered ibuprofen Start: 06/19/21 9:49:00 EDT Start Date: 06/19/21 Status: Ordered oxyCODONE 5 mg oral tablet Start: 08/13/21 16:27:00 EST, 1 tab, PO, q6h, Disp# 20 tab, X 5 day, Refills: 0, with food, Note toPharmacy: PDMP verified, PRN: as needed for pain, Stop: 08/18/21 16:27:00 EST, Pharmacy: [id number] Start Date: 08/13/21 Stop Date: 08/18/21 Status: Ordered Tylenol Start: 06/19/21 9:49:00 EDT Start Date: 06/19/21 Status: Ordered Mental Status 08/13/21 Barriers to Learning one year None evide nt Mandatory Health Literacy Documentation Yes Health Literacy Communication Barriers N ever Problem List Condition Effective Dates Status Health Status Inform ant Back pain at L4-L5 level.(Confirmed) Active Osteomyelitis(Confirmed) Active Tobacco user(Confirmed) Active Diagnosis Diagnosis Type Effective Dates Health Status Cl inical Service Informant Elevated white blood cell count Discharge Diagnosis 08/13/21 Non-Specified Body mass index [BMI] 31.0-31.9, adult Discharge Diagnosis 08/13/21 Non-Specified Abnormal CBC Discharge Diagnosis 08/13/21 Back pain Discharge Diagnosis 08/13/21 Procedures Procedure Date Related Diagnosis Body Site Status MRI of lumbar spine 1 09/09/19 Com pleted Post-surgery back pain 05/07/00 Co mpleted 11. Redemonstration of the discitis/osteomyelitis at the L2-L3 level. This has slightly progressed. 2. There is extensive enhancement surrounding the L2-L3 vertebral bodies and within the epidural spaces posterior to these levels. The abnormal enhancement extends into the bilateral L2-L3 and L3-L4 neural foramen resulting in mild mass effect and favors phlegmon. There is also a tiny 5 mm focus ofnonenhancement posterior to the L2-L3 disc space level. This could represent a disc bulge. However given the extensive surrounding phlegmon this is concerning for a small abscess. This results in moderate to severe central canal narrowing at the L2-L3 level which has slightly progressed. 3. Postoperative changes. Vital Signs Most recent to oldest [Reference Range]: 1 Height 183.6 cm (08/13/21 4:00 PM) Patient Weight 106.5 kg (08/13/21 4:00 PM) Body Mass Index 31.59 kg/m2 (08/13/21 4:00 PM) Temperature [36.5-37.9 DegC] 36.4 DegC *LOW* (08/13/21 4:00 PM) Heart Rate 114 bpm (08/13/21 4:00 PM) Respiratory Rate 18 br/min (08/13/21 4:00 PM) Blood Pressure 142/92mmHg (08/13/21 4:00 PM) Social History Social History Type Response Tobacco Current every day zain chandra, Cigarettes, 10 year(s). 1 Smoking Status Current every day ema t smoker Sex Male 14 cigarettes per day
--- OUTSIDE RECORDS SUMMARY | 2023-05-10 15:53 | External Medical Summary | Summary of Care ---
Author Name Unknown Organization [place] [address] Care Team Providers Care Senior Program Manager Name Role Phone Unavailable Primary Care Provider Unavailabl e Reason for Visit * Reason Comments Cough Congestion Fever Encounter Details Date Type Department Care Team Description 01/16/2019 [facility] [address] [place] [address] Della Padilla PA-C [address] [place] [address] Acute non-recurrent maxillary sinusitis* Allergies Active Allergy Reactions Severity Noted Date Comments Fentanyl 02/03/2001 throat tightness Morphine Itching,Rash Medium 05/23/2012 Nsaids 07/09/2000 nausea * vomiting documented as of this encounter (statuses as of 01/16/2019) Medications Medication Sig Dispensed Refills Start Date End Date Status ofloxacin (OCUFLOX) 0.3 % ophthalmic solutionIndications:Ac [place] bacterial conjunctivitis of left eye Instill 1 Drop into eye 4 times a day. 10 mL 0 05/20/2018 Active ondansetron ODT (ZOFRAN ODT) 4 MG TBDPIndications:Nausea and vomiting, intractability of vomiting not specified, unspecified vomiting type Place 1 Tab on tongue every 8 hours as needed for Nausea. dissolve on tongue. 8 Tab 0 10/17/2018 Active predniSONE (DELTASONE) 20 MG TabletIndications:Acut e non-recurrent maxillary sinusitis 2 tabs by mouth daily in AM x 5 days 10 Tab 0 01/16/2019 Active azithromycin (ZITHROMAX) 250 MG TabletIndications:Acut e non-recurrent maxillary sinusitis Take 2 tabs by mouth on the first day, then 1 tab daily on days two through five 6 Tab 0 01/16/2019 01/21/2019 Active documented as of this encounter (statuses as of 01/16/2019) Active Problems Problem Noted Date Acute cholecystitis 12/31/2011 LUMBAGO 05/01/2002 SPINAL STENOSIS-LUMBAR 02/14/2002 LUMB-LUMBOSAC DISC DEGEN 02/14/2002 OBESITY, UNSPECIFIED documented as of this encounter (statuses as of 01/16/2019) Immunizations Name Dates Previously Given Next Due DTWP - Dipth/Tet/Whole Cell Pertussis 01/14/1983 ,1982,1982 DTaP - Dipth/Tet/Acell Pertussis 12/17/1984,01/04 Diptheria/Tetanus (Adult) 07/22/1994 Hepatitis B Vaccine 09/05/1998,05/07/1995,1994 MMR - Measles/Mumps/Rubella Vaccine 01/07/1995,0 10/08/1983 OPV - Polio Virus Vaccine (Oral) 988,07/16/1983,1982,08/20 TB Kandace Test 03/19/1983 documented as of this encounter Social History Tobacco Use Types Packs/Day Years Used Date Current Every Day Smoker Cigarettes 1 15 Smokeless Tobacco: Never Used Alcohol Use Drinks/Week oz/Week Comments No Sex Assigned at Date Recorded Not on file Job Start Date Occupation Industry Not on file Not on file Not on file Travel History Travel Start Travel End documented as of this encounter Last Filed Vital Signs Vital Sign Reading Time Taken Blood Pressure 146/90 01/16/2019 2:27 PM EDT Pulse 88 01/16/2019 2:27 PM EDT Temperature 36.6 C (97.8 F) 01/16/2019 2 :27 PM EDT Respiratory Rate 18 01/16/2019 2:27 PM EDT Oxygen Saturation 97% 01/16/2019 2:2 7 PM EDT Inhaled Oxygen Concentration - - Weight - - Height - - Body Mass Index - - documented in this encounter Progress Notes * Della Padilla PA-C - 01/16/2019 2:32 PM EDT Nursing Notes: Anamika Johnson RN 01/16/19 1428 Signed patinet states chest congestion and fever x 3 days with a cough Subjective: Malvin Jaramillo is a 38 year old male who presents to the [facility] complaining of fever and congestion for 4 days. Patient stated 4 days ago he started with fever, nasal congestion, sinus pressure and cough. Cough is nonproductive. Patient described nasal discharge is thick and yellow. Using OTC medication without relief. Fever was 101 several days ago. Patient stated this morning when he woke up both eyes were matted shut. Denied SOB, wheezing, nausea and vomiting. See HPI for ROS Patient Active Problem List Diagnosis Code OBESITY, UNSPECIFIED E66.9 SPINAL STENOSIS-LUMBAR M48.061 LUMB-LUMBOSAC DISC DEGEN M51.37 LUMBAGO M54.5 Acute cholecystitis K81.0 Current Outpatient Medications Medication Sig Dispense Refill azithromycin (ZITHROMAX) 250 MG Tablet Take 2 tabs by mouth on the first day, then 1 tab daily on days two through five 6 Tab 0 predniSONE (DELTASONE) 20 MG Tablet 2 tabs by mouth daily in AM x 5 days 10 Tab 0 ondansetron ODT (ZOFRAN ODT) [address] 1 Tab on tongue every 8 hours as needed for Nausea. dissolve on tongue. 8 Tab 0 ofloxacin (OCUFLOX) 0.3 % ophthalmic solution Instill 1 Drop into eye 4 times a day. 10 mL 0 Review of patient's allergies indicates: Allergen Reactions Morphine Itching and Rash Fentanyl throat tightness Nsaids nausea * vomiting OBJECTIVE: BP 146/90 | Pulse 88 | Temp (Src) 97.8 (Tympanic) | Resp 18 | SaO2 97% PHYSICAL EXAM: General: alert, healthy and no distress Head: Normocephalic, No masses, lesions, tenderness or abnormalities Eye Exam: PERRLA, EOMI, Conjunctiva are pink and non-injected, sclera clear Ears: External ears normal, Canals clear, TM's Normal Nose: no septal hematoma, mucosal erythema, sinus tenderness Oropharynx: no exudate, lips, buccal mucosa, and tongue normal, mucous membranes are moist and postnasal drip Lymph: no palpable lymphadenopathy Heart: regular rate & rhythm, no murmurs and no gallops Lungs: chest symmetric with normal AP diameter, no chest deformities noted, no chest wall tenderness, lungs clear to auscultation ASSESSMENT/PLAN: J01.00 Acute non-recurrent maxillary sinusitis (primary encounter diagnosis) Plan: Prednisone 20 mg po tabs Si tabs by mouth daily in am x 5 days Azithromycin 250 mg po tabs Sig:Take 2 tabs by mouth on the first day, then 1 tab daily on days twothrough five Return to work or school Follow up: Return if symptoms worsen or fail to improve. 1. Push fluids 2. Saline nasal rinses / humidifier 3. Tylenol or Ibuprofen for pain/fever 4. Continue OTC medication Patient to follow up with PCP if symptoms persist or worsen. Plan of care & discharge instructions were discussed, & the patient verbalized understanding. Della Padilla PA-C 01/16/[address] [id number] documented in this encounter Nursing Notes * Anamika Johnson RN - 01/16/2019 2:27 PM EDT patinet states chest congestion and fever x 3 days with a cough documented in this encounter Plan of Treatment Health Maintenance Due Date Last Done Comments DTaP,Tdap,and Td Vaccines (5 - Tdap) 2001 07/22/1994, 12/17/1984, 01/14/1984, Additional history exists PNEUMOCOCCAL 19-64 MEDIUM RISK (1 of 1 - PPSV23) 2001 LIPID SCREEN EVERY 5 YRS-MEN AGE 35-75 2017 12/26/2001 Influenza Vaccine (FLU shot) (Season Ended) 2019 MENINGOCOCCAL (MENACTRA) Aged Out No longer eligible based on patient's age to complete this topic documented as of this encounter Implants Not on filedocumented as of this encounter Visit Diagnoses Diagnosis Acute non-recurrent maxillary sinusitis- Primary documented in this encounter Advance Directives Patient has advance care planning documents on file. For more information, please contact: [place] Quinonez [phone]"
--- OUTSIDE RECORDS SUMMARY | 2023-05-10 15:53 | External Medical Summary | Continuity of Care Document ---
Author Name Unknown Organization [address] Address [address] [place] [address] [place] [address] Care Team Providers Care Weight And Balance Control Agent Name Role Phone Shilpa Cisneros Primary Care Physician [phone] [id number] Date(s): 06/19/21 - 06/19/[address] [place] MATHEW Jens [address], [address] [place], [place] [address] [phone] Encounter Diagnosis Pain in left lumbar region of back(Discharge Diagnosis) - 06/19/21 Back pain at L4-L5 level.(Discharge Diagnosis) - 06/19/21 Hx of osteomyelitis(Discharge Diagnosis) - 06/19/21 Body mass index [BMI] 28.0-28.9, adult(Discharge Diagnosis) - 06/19/21 Discharge Disposition: Home or Self Care Attending Physician: CULLEN Cisneros Susan M Referring Physician: CULLEN Cisneros Susan M Allergies, Adverse Reactions, Alerts Substance Reaction Severity Status Toradol swelling in face/throat Acti ve Ultram swelling face/throat Active Darvocet A500 numbness in tongue Active Assessment and Plan Extracted from: Title:Office Visit Note: Ret urn to [facility] care. Author:CULLEN Cisneros Susan M Date:06/19/21 1.Pain in left lumbar dawit on of back ongoing for several years and now that back at home, would like to resume care with Dr Cooper at [facility]- a new referral has been placed for re-evaluation. 2.Back pain at L4-L5 level. On going pain and using Tylenol- rx for Diclofenac ER 75 mg q 12 hrs with food and Flexeril 5 mg 1-2 times a day. Referral was made for pain management at [facility] 3.Hx of osteomyelitis In early 2019 was treated with IV antibiotics via a port- the infection resolved and the port was removed. 4.Body mass index [BMI] 28.0-28.9, adult Weight is stable- since last visit has gained 5 pounds- continue with balanced diet. Orders: cyclobenzaprine, Start: 06/19/21 10:16:00 EDT, 1 tab, PO, bid, Disp# 60 tab, Refills: 1, prn muscle spasm, PRN: as needed for spasm, Pharmacy: [id number] diclofenac, Start: 06/19/21 10:19:00 EDT, 1 tab, PO, q12h, Disp# 60 tab, Refills: 2, with food, PRN: as needed for pain, Pharmacy: [facility] Immunizations Given and Recorded Vaccine Date Status Refusal Reason SARS-CoV-2 (COVID-19) Ad26 vaccine 1 01/08/21 Ang rded 1Result Comment: 2021-06-19: Historical information-source unspecified Medications diclofenac sodium 75 mg oral delayed release tablet Start: 06/19/21 10:19:00 EDT, 1 tab, PO, q12h, Disp# 60 tab, Refills: 2, with food, PRN: as needed for pain, Pharmacy: [facility] Start Date: 06/19/21 Status: Ordered Flexeril 5 mg oral tablet Start: 06/19/21 10:16:00 EDT, 1 tab, PO, bid, Disp# 60 tab, Refills: 1, prn muscle spasm, PRN: as needed for spasm, Pharmacy: [facility] Start Date: 06/19/21 Status: Ordered ibuprofen Start: 06/19/21 9:49:00 EDT Start Date: 06/19/21 Status: Ordered Tylenol Start: 06/19/21 9:49:00 EDT Start Date: 06/19/21 Status: Ordered Mental Status 06/19/21 Barriers to Learning one year None evide nt Mandatory Health Literacy Documentation Yes Health Literacy Communication Barriers N ever Problem List Condition Effective Dates Status Health Status Inform ant Back pain at L4-L5 level.(Confirmed) Active Osteomyelitis(Confirmed) Active Tobacco user(Confirmed) Active Diagnosis Diagnosis Type Effective Dates Health Status Clinical Service Informant Body mass index [BMI] 28.0-28.9, adult Discharge Diagnosis 06/19/21 Non-Specified Hx of osteomyelitis Discharge Diagnosis 06/19/21 Non-Specified Pain in left lumbar region of back Discharge Diagnosis 06/19/21 Non-Specified Back pain at L4-L5 level. Discharge Diagnosis 06/19/21 Procedures Procedure Date Related Diagnosis Body Site [...] oldest [Reference Range]: 1 Height 183.6 cm (06/19/21 9:50 AM) Patient Weight 96.1 kg (06/19/21 9:50 AM) Body Mass Index 28.51 kg/m2 (06/19/21 9:50 AM) Temperature [36.5-37.9 DegC] 36.9 DegC (06/19/21 9:50 AM) Heart Rate 88 bpm (06/19/21 9:50 AM) Respiratory Rate 18 br/min (06/19/21 9:50 AM) Blood Pressure 132/76mmHg (06/19/21 9:50 AM) Cuff Pulse Pressure 56 mmHg (06/19/21 9:50 AM) BP Location # 1 Right Arm, Manual (06/19/21 9:50 AM) Social History Social History Type Response Tobacco Current every day sm prateek, Cigarettes, 10 year(s). 1 Smoking Status Current every day ema mirandat smoker Sex Male 14 cigarettes per day
--- OUTSIDE RECORDS SUMMARY | 2023-05-10 15:53 | External Medical Summary | Summary of Care ---
Author Name Unknown Organization [facility] Address [address] [facility] [place] [address] Phone [phone] Care Team Providers Care Mechanical Manager Name Role Phone Unavailable Primary Care Provider Unavailabl e Reason for Visit * Reason Comments Neck Pain Stated started last week and his neck was "locked, I couldn't even move my head side to side". Now just has 1 tender spot which is causing him pain. Good ROM noted today. No fevers. Encounter Details Date Type Department Care Team Description 03/25/2023 Con[facility] Visit [facility], Johnna [address] [id number] Tyra Paniagua CRNP [address] [place] [address] Neck pain* Allergies Active Allergy Reactions Severity Noted Date Comments Fentanyl 02/03/2001 throat tightness Morphine Itching,Rash Medium 05/23/2012 Nsaids 07/09/2000 nausea * vomiting documented as of this encounter (statuses as of 03/25/2023) Medications Medication Sig Dispensed Refills Start Date End Date Status Buprenorphine HCl-Naloxone HCl 8-2 MG Sublingual Film (Suboxone) place 1 FILM under the tongue twice a day 0 02/03/2023 Active ofloxacin (OCUFLOX) 0.3 % ophthalmic solutionIndications: Acute bacterial conjunctivitis of left eye Instill 1 Drop into eye 4 times a day. 10 mL 0 05/20/2018 03/25/2023 Discontinued (Medication List Clean Up) ondansetron ODT (ZOFRAN ODT) 4 MG TBDPIndications:Naus ea and vomiting, intractability of vomiting not specified, unspecified vomiting type Place 1 Tab on tongue every 8 hours as needed for Nausea. dissolve on tongue. 8 Tab 0 10/17/2018 03/25/2023 Discontinued (Medication List Clean Up) predniSONE (DELTASONE) 20 MG TabletIndications:Ac robert non-recurrent maxillary sinusitis 2 tabs by mouth daily in AM x 5 days 10 Tab 0 01/16/2019 03/25/2023 Discontinued (Medication List Clean Up) Hospital, Clinic, or Other Facility Administered Medication Ordered Dose Route Frequency Start Date End Date Status Dexamethasone Sodium Phosphate (Decadron) 10 MG/ML inj 10 mgIndications:Neck pain 10 mg IM ONCE 03/25/2023 03/25/2023 E nded documented as of this encounter (statuses as of 03/25/2023) Active Problems Problem Noted Date Acute cholecystitis 12/31/2011 LUMBAGO 05/01/2002 SPINAL STENOSIS-LUMBAR 02/14/2002 LUMB-LUMBOSAC DISC DEGEN 02/14/2002 OBESITY, UNSPECIFIED documented as of this encounter (statuses as of 03/25/2023) Immunizations Name Administration Dates Next Due DTWP - Dipth/Tet/Whole Cell Pertussis 01/14/1983,1982,1982 DTaP - Dipth/Tet/Acell Pertussis 12/17/1984,01/04 Diptheria/Tetanus (Adult) 07/22/1994 Hepatitis B Vaccine 09/05/1998,05/07/1995,1994 MMR - Measles/Mumps/Rubella Vaccine 01/07/1995,0 10/08/1983 OPV - Polio Virus Vaccine (Oral) 988,07/16/1983,1982, 982 TB Kandace Test 03/19/1983 documented as of this encounter Social History Tobacco Use Types Packs/Day Years Used Date Smoking Tobacco: Every Day Cigarettes 0.5 15 Smokeless Tobacco: Never Tobacco Cessation:Ready to Q uit: Not Asked; Counseling Given: Not Answered Alcohol Use Standard Drinks/Week Comments No 0 (1 standard drink = 0.6 oz pur e alcohol) Sex Assigned at Date Recorded Not on file Job Start Date Occupation Industry Not on file Not on file Not on file documented as of this encounter Last Filed Vital Signs Vital Sign Reading Time Taken Comments Blood Pressure 118/75 03/25/2023 9:07 AM EDT Pulse 52 03/25/2023 9:07 AM EDT Temperature 36.4 C (97.6 F) 03/25/2023 9:07 AM ED T Respiratory Rate 16 03/25/2023 9:07 AM EDT Oxygen Saturation 97% 03/25/2023 9:07 AM EDT Inhaled Oxygen Concentration - - Weight 107.5 kg (237 lb) 03/25/2023 9:07 AM EDT Height 182.9 cm (6') 03/25/2023 9:07 AM EDT Body Mass Index 32.14 03/25/2023 9:07 AM EDT documented in this encounter Progress Notes * CULLEN Toribio - 03/25/2023 9:19 AM EDT [facility] [address] [place] [address] [email or web address] SUBJECTIVE: Nursing Notes: Jeanine Rodriguez RN 03/25/23 0910 Signed Nursing Notes: CC: Chief Complaint Patient presents with Neck Pain Stated started last week and his neck was "locked, I couldn't even move my head side to side". Now just has 1 tender spot which is causing him pain. Good ROM noted today. No fevers. Brief Hx: Had same thing happen once before several years ago which resolved on its own. Duration/Onset: Wednesday evening OTC meds: tylenol. Ibuprofen. Icy hot patches. WMC. Tried ice but did not help. Accompanied by: self Pt. Stated he is not taking his suboxone. Brief Clinical History Mr. Landaverde is a 42 year old man presents today with neck pain Reports neck pain x 3 days OTC tylenol, ibuprofen, icey hot, warm compresses, epsom salt soaks Describes pain as only with movement 2-3/10 Denies numbness/tingling ROS EXAM: CONSTITUTIONAL: No change in weight, No weakness, No fatigue and No fevers, sweats, or chills PULMONARY: No cough, sputum, or hemoptysis, No wheezing, No rales and No shortness of breath CARDIOVASCULAR: No chest pain, No shortness of breath and No dyspnea on exertion EXTREMITIES: No pain, redness or swelling on the joints and Positive for neck pain SKIN/INTEGUMENTARY: No edema, No rash and No itching NEUROLOGIC: Normal balance, No headaches, No tingling and No weakness All other systems reviewed and are negative. Patient Active Problem List Diagnosis Code OBESITY, UNSPECIFIED E66.9 SPINAL STENOSIS-LUMBAR M48.061 LUMB-LUMBOSAC DISC DEGEN M51.37 LUMBAGO M54.50 Acute cholecystitis K81.0 Current Outpatient Medications Medication Sig Dispense Refill Buprenorphine HCl-Naloxone HCl 8-2 MG Sublingual Film (Suboxone) place 1 FILM under the tongue twice a day (Patient not taking: Reported on 03/25/2023) No current facility-administered medications for this visit. Review of patient's allergies indicates: Allergen Reactions Morphine Itching and Rash Fentanyl throat tightness Nsaids nausea * vomiting OBJECTIVE: BP 118/75 | Pulse 52 | Temp 36.4 C (97.6 F) (Skin) | Resp 16 | Ht 1.829 m (6') | Wt 107.5 kg (237 lb) | SpO2 97% | BMI 32.14 kg/m | BSA 2.34 m PHYSICAL EXAM: General: alert, healthy and no distress Heart: regular rate & rhythm, no murmur and no gallops Lungs: chest symmetric with normal AP diameter, no chest deformities noted, no chest wall tenderness, lungs clear to auscultation Pulses: radial=2/4 BACK: back symmetric, no curvature, no costovertebral angle tenderness, range of motion is normal, tender to palpation base of neck, full ROM Extremities: less than 2 second capillary refill, no joint deformities, effusion, or inflammation, Full ROM, Pulses Intact, Strength equal bilaterally Neuro Exam: alert & oriented x 3 with fluent speech, no focal motor/sensory deficits, gait normal, reflexes normal and symmetric ASSESSMENT/PLAN: Neck pain (Primary) - RETURN TO WORK OR SCHOOL Deferred any prescribed medications today- prednisone Deferred any imaging today- c spine xray Monitor for new/worsening symptoms Encourage fluid intake Practice good hand hygiene OTC tylenol/ibuprofen per box instructions for comfort May apply ice/warm compresses to the affected area Rest Take it easy Patient stated understanding and had no other issues at this time Follow Up: Return if symptoms worsen or fail to improve. C[facility]ib[facility] [address] [facility] [address] [place] [id number] 03/25/23 documented in this encounter Nursing Notes * Jeanine Rodriguez RN - 03/25/2023 9:06 AM EDT Nursing Notes: CC: Chief Complaint Patient presents with Neck Pain Stated started last week and his neck was "locked, I couldn't even move my head side to side". Now just has 1 tender spot which is causing him pain. Good ROM noted today. No fevers. Brief Hx: Had same thing happen once before several years ago which resolved on its own. Duration/Onset: Wednesday evening OTC meds: tylenol. Ibuprofen. Icy hot patches. WMC. Tried ice but did not help. Accompanied by: self Pt. Stated he is not taking his suboxone. documented in this encounter Plan of Treatment Scheduled Orders Name Type Priority Associated Diagnoses Orde r Schedule XR C SPINE 4-5 VIEWS Medical Imaging STAT Neck pain Expected: 03/25/2023, Expires: 04/25/2024 Health Maintenance Due Date Last Done Comments Pneumococcal Vaccine: Pediatrics (0 to 5 Years) and At-Risk Patients (6 to 64 Years) (1 - PCV) 1988 Depression Screening, Annual for Pts 12 and Over 1994 DTaP,Tdap,and Td Vaccines (6 - Tdap) 07/23/1994 07/22/1994, 12/17/1984, 01/14/1984, Additional history exists HIV Screening 1997 Hepatitis C Screening 2000 Diabetes Screening 12/26/2004 12/26/2001, 11/07/1996 Lipid Panel 12/26/2006 12/26/2001 COVID-19 Vaccine (2 - Booster for Raymond series) 03/05/2021 01/08/2021 Influenza Vaccine (FLU shot) (#1) 2023 Hepatitis B Completed 09/05/1998, 09/1994, 01/07/1995 GARDASIL-HPV IMMUNIZATION SERIES Aged Out No longer eligible based on patient's age to complete this topic MENINGOCOCCAL (MENACTRA/MENVEO) Aged Out No longer eligible based on patient's age to complete this topic documented as of this encounter Medical Devices Not on filedocumented as of this encounter Visit Diagnoses Diagnosis Neck pain- Primary Cervicalgia documented in this encounter Administered Medications Inactive Administered Medications - up to 3 most recent administrations Medication Order MAR Action Action Date Dose Rate Site Dexamethasone Sodium Phosphate (Decadron) 10 MG/ML inj 10 mg 10 mg, Intramuscular, ONCE, On Aimee 03/25/23 at 1415, For 1 dose, Protect from Light Given 03/25/2023 1:36 PM EDT 10 mg Ventrogluteal Left documented in this encounter
--- OUTSIDE RECORDS SUMMARY | 2023-05-10 15:53 | External Medical Summary | Summary of Care ---
Author Name Unknown Organization [facility] Address [address] [facility] [place] [address] Phone [phone] Care Team Providers Care Health Educator Name Role Phone Unavailable Primary Care Provider [...] [facility], Johnna [address] [id number] Tyra Paniagua CRNP [address] [place] [address] Neck pain* Allergies Active [...] 01/16/2019 03/25/2023 Discontinued (Medication List Clean Up) documented as of this encounter (statuses as of 03/25/2023) Active Problems Problem Noted Date Acute cholecystitis 12/31/2011 LUMBAGO 05/01/2002 SPINAL STENOSIS-LUMBAR 02/14/2002 LUMB-LUMBOSAC DISC DEGEN 02/14/2002 OBESITY, UNSPECIFIED documented as of this encounter (statuses as of 03/25/2023) Social History Tobacco Use Types Packs/Day Years [...] CULLEN Toribio - 03/25/2023 9:19 AM EDT [facility] [place] [address] [address] [email or web address] SUBJECTIVE: Nursing Notes: Jeanine Rodriguez RN 03/25/23 [...] worsen or fail to improve. CULLEN [facility]ibio [facility] [address] [place] [address] 03/25/23 documented in this encounter Nursing Notes [...]
--- OUTSIDE RECORDS SUMMARY | 2023-05-10 15:53 | External Medical Summary | Continuity of Care Document ---
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 Name Role Phone Shilpa Cisneros Primary Care Physician [phone] Encounter [facility] [id number] Date(s): 03/07/22 - 03/07/22 [facility] [address] [facility] [address] [facility] Site [address] [facility], [address] [place], [place] [address]Ngfdp [phone] Encounter Diagnosis Abdominal pain with vomiting(Discharge Diagnosis) - 03/07/22 Discharge Disposition: Home or Self Care Attending Physician: CULLEN Ramos Shari A Referring Physician: CULLEN Ramos Shari A Allergies, Adverse Reactions, Alerts Substance Reaction Severity Status Toradol swelling in face/throat Acti ve Ultram swelling face/throat Active Darvocet A500 numbness in tongue Active Assessment and Plan Extracted from: Title:Office Visit Note Author:CULLEN Ramos Sh ari A Date:03/07/22 1.Abdominal pain with vomi ting Acute w/ systemic symptoms or complicated injury Goal:Resolution Data:pt report,exam Plan: _Resolved. Form completed to return to work. Continue smoking cessation. Time:Total time spent with this patient on day of evaluation including chart review, ordering, education and coordination of care elements: _26 minutes Immunizations Given and Recorded Vaccine Date Status Refusal Reason SARS-CoV-2 (COVID-19) Ad26 vaccine 1 01/08/21 Ang rded 1Result Comment: 2021-06-19: Historical information-source unspecified Medications ibuprofen Start: 06/19/21 9:49:00 EDT Start Date: 06/19/21 Status: Ordered NexIUM 40 mg oral delayed release capsule Start: 01/29/22 11:15:00 EDT, 1 cap, PO, Daily, Disp# 30 cap, Refills: 1, Pharmacy: [facility] Start Date: 01/29/22 Stop Date: 03/30/22 Status: Ordered [place] 0.23%-0.07% topical film Start: 12/05/21 14:13:00 EDT Start Date: 12/05/21 Status: Ordered Tylenol Start: 06/19/21 9:49:00 EDT Start Date: 06/19/21 Status: Ordered Zofran ODT 8 mg oral tablet, disintegrating Start: 01/29/22 11:19:00 EDT, 1 tab, PO, bid, Disp# 12 tab, PRN: as needed for nausea/vomiting, Pharmacy: [facility] Start Date: 01/29/22 Status: Ordered Mental Status 03/07/22 Barriers to Learning one year None evide nt Mandatory Health Literacy Documentation Yes Health Literacy Communication Barriers N ever Primary Language Telugu Problem List Condition Effective Dates Status Health Status Inform ant Back pain at L4-L5 level.(Confirmed) Active Osteomyelitis(Confirmed) Active Tobacco user(Confirmed) Active Diagnosis Diagnosis Type Effective Dates Health Status Cl inical Service Informant Abdominal pain with vomiting Discharge Diagnosis 03/07/22 Procedures Procedure Date Related Diagnosis Body Site [...] Most recent to oldest [Reference Range]: 1 Patient Weight 100 kg (03/07/22 9:15 AM) Temperature [36.5-37.9 DegC] 37 DegC (03/07/22 9:15 AM) Heart Rate 76 bpm (03/07/22 9:15 AM) Respiratory Rate 18 br/min (03/07/22 9:15 AM) Blood Pressure 122/76mmHg (03/07/22 9:15 AM) Cuff Pulse Pressure 46 mmHg (03/07/22 9:15 AM) Social History Social History Type Response Tobacco Current every day sm oker, Cigarettes, 10 year(s). 1 Smoking Status Current some day lig ht smoker Sex Male 14 cigarettes per day Care Team Personnel Name: CULLEN Cisneros Susan M Address: [address] [place], [place] [id number]
--- OUTSIDE RECORDS SUMMARY | 2023-05-10 15:53 | External Medical Summary | Continuity of Care Document ---
Author Name Unknown Organization [address] Address [address] [place] [address] [place] [id number] Care Team Providers Care Aerodynamics Engineer Name Role Phone Shilpa Cisneros Primary Care Physician [phone] Encounter [facility] [id number] Date(s): 01/29/22 - 01/29/[address] [facility] [address] [facility], [address] [place] [address] [phone] Encounter Diagnosis Abdominal pain with vomiting(Discharge Diagnosis) - 01/28/22 Body mass index [BMI] 29.0-29.9, adult(Discharge Diagnosis) - 01/29/22 Discharge Disposition: Home or Self Care Attending Physician: CULLEN Ramos Shari A Referring Physician: CULLEN Ramos Shari A Allergies, Adverse Reactions, Alerts Substance Reaction Severity Status Toradol swelling in face/throat Acti ve Ultram swelling face/throat Active Darvocet A500 numbness in tongue Active Assessment and Plan Extracted from: Title:Office Visit Note Author:CULLEN Ramos Sh ari A Date:01/29/22 1.Abdominal pain with vomi ting Acute w/ systemic symptoms or complicated injury Goal:Resolution Data:Patient report, exam, unique tests ordered:CBC, CMP, amylase, lipase, Mg Plan: _Zofran 8 mg ODT bid prn. Nexium 40 mg po daily. Continue famotidine, has at home. RTC 1-2 weeks. Emergency procedures reviewed. Time:Total time spent with this patient on day of evaluation including chart review, ordering, education and coordination of care elements: _ 33minutes Immunizations Given and Recorded Vaccine Date Status Refusal Reason SARS-CoV-2 (COVID-19) Ad26 vaccine 1 01/08/21 Ang rded 1Result Comment: 2021-06-19: Historical information-source unspecified Medications ibuprofen Start: 06/19/21 9:49:00 EDT Start Date: 06/19/21 Status: Ordered NexIUM 40 mg oral delayed release capsule Start: 01/29/22 11:15:00 EDT, 1 cap, PO, Daily, Disp# 30 cap, Refills: 1, Pharmacy: [facility] Start Date: 01/29/22 Stop Date: 03/30/22 Status: Ordered [place] 0.23%-0.07% topical film Start: 12/05/21 14:13:00 EDT Start Date: 12/05/21 Status: Ordered Tylenol Start: 06/19/21 9:49:00 EDT Start Date: 06/19/21 Status: Ordered Zofran ODT 8 mg oral tablet, disintegrating Start: 01/29/22 11:19:00 EDT, 1 tab, PO, bid, Disp# 12 tab, PRN: as needed for nausea/vomiting, Pharmacy: [facility] Start Date: 01/29/22 Status: Ordered Mental Status 01/29/22 Barriers to Learning one year None evide nt Mandatory Health Literacy Documentation Yes Health Literacy Communication Barriers N ever Primary Language Welsh Problem List Condition Effective Dates Status Health Status Inform ant Back pain at L4-L5 level.(Confirmed) Active Osteomyelitis(Confirmed) Active Tobacco user(Confirmed) Active Diagnosis Diagnosis Type Effective Dates Health Status Cl inical Service Informant Abdominal pain with vomiting Discharge Diagnosis 01/28/22 Body mass index [BMI] 29.0-29.9, adult Discharge Diagnosis 01/29/22 Non-Specified Procedures Procedure Date Related Diagnosis Body Site [...] recent to oldest [Reference Range]: 1 Height 185.7 cm (01/29/22 10:58 AM) Patient Weight 102.9 kg (01/29/22 10:58 AM) Body Mass Index 29.84 kg/m2 (01/29/22 10:58 AM) Temperature [36.5-37.9 DegC] 36.7 DegC (01/29/22 10:58 AM) Heart Rate 80 bpm (01/29/22 10:58 AM) Respiratory Rate 16 br/min (01/29/22 10:58 AM) Blood Pressure 148/88mmHg (01/29/22 10:58 AM) Cuff Pulse Pressure 60 mmHg (01/29/22 10:58 AM) Social History Social History Type Response Tobacco Current every day sm prateek, Cigarettes, 10 year(s). 1 Smoking Status Current every day ema dee smoker Sex Male 14 cigarettes per day Care Team Personnel Name: CULLEN Cisneros Susan M Address: [address] [place] [address]
--- OUTSIDE RECORDS SUMMARY | 2023-05-10 15:54 | External Medical Summary | Summary of Care ---
Author Name Unknown Organization [facility] [address] Care Team Providers Care Crop Supervisor Name Role Phone Unavailable Primary Care Provider Unavailabl e Reason for Visit * Reason Comments Hospital Follow-Up Encounter Details Date Type Department Care Team Description 07/20/2018 Telephone Gastroenterology, [facility] [address] [place] [address] Mari Gilbert CRNP [address] [facility] [place] [address] [phone] Hospital Follow-Up Allergies Active Allergy Reactions Severity Noted Date Comments Fentanyl 02/03/2001 throat tightness Morphine Itching,Rash Medium 05/23/2012 Nsaids 07/09/2000 nausea * vomiting as of this encounter Medications Medication Sig Dispensed Refills Start Date End Date Status oxyCODONE-acetaminophe n 5-325 mg per tab (PERCOCET) 5-325 MG per tablet Take 1 Tab by mouth every 4 hours as needed for Pain, Severe. 15 Tab 0 05/06/2018 Active MethylPREDNISolone (MEDROL) 4 MG TBPK follow package directions 21 Tab 0 05/06/2018 Active ofloxacin (OCUFLOX) 0.3 % ophthalmic solutionIndications:Ac enterprise bacterial conjunctivitis of left eye Instill 1 Drop into eye 4 times a day. 10 mL 0 05/20/2018 Active as of this encounter Active Problems Problem Noted Date Acute cholecystitis 12/31/2011 LUMBAGO 05/01/2002 SPINAL STENOSIS-LUMBAR 02/14/2002 LUMB-LUMBOSAC DISC DEGEN 02/14/2002 OBESITY, UNSPECIFIED as of this encounter Immunizations Name Dates Previously Given Next Due DTWP - Dipth/Tet/Whole Cell Pertussis 01/14/1983 ,1982,1982 DTaP - Dipth/Tet/Acell Pertussis 12/17/1984,01/04 Diptheria/Tetanus (Adult) 07/22/1994 Hepatitis B Vaccine 09/05/1998,05/07/1995,1994 MMR - Measles/Mumps/Rubella Vaccine 01/07/1995,0 10/08/1983 OPV - Polio Virus Vaccine (Oral) 988,07/16/1983,1982,08/20 TB Kandace Test 03/19/1983 as of this encounter Social History Tobacco Use Types Packs/Day Years Used Date Current Every Day Smoker Cigarettes 1 15 Smokeless Tobacco: Never Used Alcohol Use Drinks/Week oz/Week Comments No Sex Assigned at Date Recorded Not on file Job Start Date Occupation Industry Not on file Not on file Not on file Travel History Travel Start Travel End as of this encounter Miscellaneous Notes * Telephone Encounter - Carla Cline OSA - 07/21/2018 3:02 PM EST Lm on cell phone number to call us back. * Telephone Encounter - Mari Gilbert CRNP - 07/20/2018 3:14 PM EST Received call from [facility] ED requesting OP GI follow up Please call the pt tomorrow and offer appt at location closer to his home Noncontrast CT abd w/ wall thickening of sigmoid No evidence of obstruction, ileus or appendicitis ER will send home with supplies for c.diff and culture AMS in this encounter Plan of Treatment Health Maintenance Due Date Last Done Comments DTaP,Tdap,and Td Vaccines (5 - Tdap) 2001 07/22/1994, 12/17/1984, 01/14/1984, Additional history exists PNEUMOCOCCAL 19-64 MEDIUM RI SK (1 of 1 - PPSV23) 2001 LIPID SCREEN EVERY 5 YRS-MEN AGE 35-75 2017 12/26/2001 Influenza Vaccine (FLU shot) (#1) 2018 as of this encounter Implants Not on fileas of this encounter Advance Directives Patient has advance care planning documents on file. For more information, please contact: DEOND[place] Quinonez [phone]
--- OUTSIDE RECORDS SUMMARY | 2023-05-10 15:54 | External Medical Summary | Summary of Care ---
Author Name Unknown Organization [place] [address] Care Team Providers Care Dairy Nutrition Consultant Name Role Phone Unavailable Primary Care Provider Unavailabl e Reason for Visit * Reason Comments Pain Abdominal Pain Encounter Details Date Type Department Care Team Description 10/17/2018 Convenient Care Visit [facility] [address] [place] [address] Nicholas Xiong PA-C [address] [facility] [address] [place] [address] Gastroesophageal reflux disease, esophagitis presence not specified*; Nausea and vomiting, intractability of vomiting not specified, unspecified vomiting type Allergies Active Allergy Reactions Severity Noted Date Comments Fentanyl 02/03/2001 throat tightness Morphine Itching,Rash Medium 05/23/2012 Nsaids 07/09/2000 nausea * vomiting documented as of this encounter (statuses as of 10/17/2018) Medications Medication Sig Dispensed Refills Start Date End Date Status ofloxacin (OCUFLOX) 0.3 % ophthalmic solutionIndications: Acute bacterial conjunctivitis of left eye Instill 1 Drop into eye 4 times a day. 10 mL 0 05/20/2018 Active ondansetron ODT (ZOFRAN ODT) 4 MG TBDPIndications:Naus ea and vomiting, intractability of vomiting not specified, unspecified vomiting type Place 1 Tab on tongue every 8 hours as needed for Nausea. dissolve on tongue. 8 Tab 0 10/17/2018 Active oxyCODONE-acetaminop hen 5-325 mg per tab (PERCOCET) 5-325 MG per tablet Take 1 Tab by mouth every 4 hours as needed for Pain, Severe. 15 Tab 0 05/06/2018 9 Discontinued MethylPREDNISolone (MEDROL) 4 MG TBPK follow package directions 21 Tab 0 05/06/2018 9 Discontinued documented as of this encounter (statuses as of 10/17/2018) Active Problems Problem Noted Date Acute cholecystitis 12/31/2011 LUMBAGO 05/01/2002 SPINAL STENOSIS-LUMBAR 02/14/2002 LUMB-LUMBOSAC DISC DEGEN 02/14/2002 OBESITY, UNSPECIFIED documented as of this encounter (statuses as of 10/17/2018) Immunizations Name Dates Previously Given Next Due [...] Vital Sign Reading Time Taken Blood Pressure 127/70 10/17/2018 4:27 PM EST Pulse 55 10/17/2018 4:27 PM EST Temperature 35.9 C (96.6 F) 10/17/2018 4 :27 PM EST Respiratory Rate 18 10/17/2018 4:27 PM EST Oxygen Saturation 99% 10/17/2018 4:2 7 PM EST Inhaled Oxygen Concentration - - Weight 90.3 kg (199 lb) 10/17/2018 4:27 PM EST Height 182.9 cm (6') 10/17/2018 4:27 PM EST Body Mass Index 26.99 10/17/2018 4:27 PM EST documented in this encounter Patient Instructions * Patient Instructions* Nicholas Xiong PA-C - 10/17/2018 4:27 PM EST Increase fluids over next 48-72 hours (water, gatorade, pedialyte). Maintain bland diet (BRAT) over next few days, as well. Slowly advance to normal diet as tolerated. Zofran PRN for severe nausea. Start Omeprazole 20 mg once daily OTC. As we discussed with any acute new or worsening symptoms go immediately to the ED. F/U with your PCP with no improvement in 3-5 days. documented in this encounter Progress Notes * Nicholas Xiong PA-C - 10/17/2018 4:25 PM EST CONVENIENT CARE NOTE HPI: Malvin Jaramillo is a 38 year old male who presents with chief complaint of LBP and abdominal pain/vomiting x one week Pt here for evaluation of acute exacerbation of lower back pain and abdominal pain/vomiting. Notes that this increase in back pain on left lower back with pain shooting down through buttocks started last week. He notes he tried to get a PCP but has been unsuccessful in getting one. Has been seen in the ED multiple times for acute flares of chronic LBP. Had spinal fusion > 15 years ago. Reports that typically course of steroids help, has eased up in the last few days and is not bothering him so much, just his stomach bothering him. Does not really want to take medications at this time for his back. For the week has had "fire" like abdominal pain and then reports he vomits. Has been using Pepto and Tums OTC with minimal improvement. No diarrhea or constipation. Regardless of what he eats stomach seems to bother him. Denies CP or SOB. Denies alcohol use, does not drink on regular basis-- reports last drink he was 23 years old. No recent change in diet or medication. Intermittent NSAID use for his back but not a daily thing and usually only takes 200-400 mg at a time. No sick contacts. Missed work last week d/t symptoms-- his work requires note for this for him to return. Denies numbness, tingling, bowel or bladder incontinence, saddle anesthesia, change in urination orbowel movements. Afebrile. ROS: See HPI for positives and negatives. Patient denies additional complaints. PAST MEDICAL HISTORY: Patient Active Problem List Diagnosis Code OBESITY, UNSPECIFIED E66.9 SPINAL STENOSIS-LUMBAR M48.061 LUMB-LUMBOSAC DISC DEGEN M51.37 LUMBAGO M54.5 Acute cholecystitis K81.0 Past Surgical History: Procedure Laterality Date LAPAROSCOPY, CHOLECYSTECTOMY WITH CHOLANGIOGRAPHY 12/23/11 Laparoscopic cholecystectomy and cholangiogram 12/23/11 Dr. Cortez at [facility] SPINE SURGERY PROCEDURE NEC 05/07/2000 L5,S1 hemilectomy with partial medial ferrintectomy Review of patient's allergies indicates: Allergen Reactions Morphine Itching and Rash Fentanyl throat tightness Nsaids nausea * vomiting Current Outpatient Medications Medication Sig Dispense Refill ondansetron ODT (ZOFRAN ODT) [address] 1 Tab on tongue every 8 hours as needed for Nausea. dissolve on tongue. 8 Tab 0 ofloxacin (OCUFLOX) 0.3 % ophthalmic solution Instill 1 Drop into eye 4 times a day. 10 mL 0 Nursing Notes: Lily Erickson LPN 10/17/18 1629 Signed Malvin Jaramillo is a 38 year old male who presents to walk-in clinic today complaining of Chief Complaint Patient presents with Pain Abdominal Pain Main Symptoms: stomach pain feeling as if it is on "fire", vomiting a couple times. Get a burning sensation like GERD, then vomiting. LAST VOMIT ONE HOUR AGO. Not eating much, drinking water. Back pin on the LT side down through buttocks. unable to get PCP for month 1/2, tried getting PCP. How long: last week Tried: braden aquino. Pt accompanied by: self . EXAM: BP 127/70 | Pulse 55 | Temp (Src) 96.6 (Tympanic) | Resp 18 | Ht 6' 0" (1.829m) | Wt 199 lbs (90.266kg) | BMI 26.99 kg/m | BSA 2.14 m | SaO2 99% GENERAL: alert, healthy, no distress, well nourished and well developed HEAD: Normocephalic, atraumatic EYES: PERRL, EOMI, Conjunctiva are pink and non-injected, sclera clear NECK: supple, no adenopathy HEART: regular rate & rhythm, no murmurs and no gallops LUNGS: clear to auscultation bilaterally, no wheezing, rales or rhonchi ABDOMEN: abdomen soft, normal bowel sounds, no masses or organomegaly, no rebound or guarding, no CVA tenderness and + epigastric tenderness, pain is reproducible Back: normal curvature, normal ROM, no CVA tenderness, + paraspinous tenderness (lumbosacral, left) SKIN: skin color, texture, turgor are normal, no rashes or significant lesions NEURO: alert & oriented x 3 with fluent speech, no focal motor/sensory deficits, gait normal, reflexes normal and symmetric ASSESSMENT/PLAN K21.9 Gastroesophageal reflux disease, esophagitis presence not specified (primary encounter diagnosis) Plan: Return to work or school R11.2 Nausea and vomiting, intractability of vomiting not specified, unspecified vomiting type Plan: Ondansetron 4 mg po tbdp Sig:Place 1 tab on tongue every 8 hours as needed for nausea. dissolve on tongue. Pain is reproducible on exam of abdomen. Vitals stable. Will start omeprazole OTC, zofran PRN. Note for work. Tried to make appnt for PCP but he was discharged from practice years ago-- pt reports disagreementwith physician at the time over pain medications for his back. He will try call [phone] to discuss further with office directly as we are unable to schedule. ED if acutely worse. Pt verbalizes understanding and agrees with plan. Questions and concerns addressed. Patient Instructions Increase fluids over next 48-72 hours (water, gatorade, pedialyte). Maintain bland diet (BRAT) over next few days, as well. Slowly advance to normal diet as tolerated. Zofran PRN for severe nausea. Start Omeprazole 20 mg once daily OTC. As we discussed with any acute new or worsening symptoms go immediately to the ED. F/U with your PCP with no improvement in 3-5 days. FOLLOW UP: Patient instructed to follow up with Primary Care Provider if no better in 3-5 days and immediately if signs and symptoms worsen. Go to ED for acutely worsening symptoms. Nicholas Xiong PA-C [facility] [address] [place] [phone] documented in this encounter Nursing Notes * Lily Erickson LPN - 10/17/2018 4:28 PM EST Malvin Jaramillo is a 38 year old male who presents to walk-in clinic today complaining of Chief Complaint Patient presents with Pain Abdominal Pain Main Symptoms: stomach pain feeling as if it is on "fire", vomiting a couple times. Get a burning sensation like GERD, then vomiting. LAST VOMIT ONE HOUR AGO. Not eating much, drinking water. Back pin on the LT side down through buttocks. unable to get PCP for month 1/2, tried getting PCP. How long: last week Tried: braden aquino. Pt accompanied by: self . documented in this encounter Plan of Treatment Health Maintenance Due Date Last Done Comments DTaP,Tdap,and Td Vaccines (5 - Tdap) 2001 07/22/1994, 12/17/1984, 01/14/1984, Additional history exists PNEUMOCOCCAL 19-64 MEDIUM RISK (1 of 1 - PPSV23) 2001 LIPID SCREEN EVERY 5 YRS-MEN AGE 35-75 2017 12/26/2001 Influenza Vaccine (FLU shot) (#1) 2018 MENINGOCOCCAL (MENACTRA) Aged Out No longer eligible based on patient's age to complete this topic documented as of this encounter Implants Not on filedocumented as of this encounter Visit Diagnoses Diagnosis Gastroesophageal reflux disease, esophagitis presence not specified- Primary Nausea and vomiting, intractability of vomiting not specified, unspecified vomiting type documented in this encounter Advance Directives Patient has advance care planning documents on file. For more information, please contact: [place]OND[place] Quinonez [phone]
--- OUTSIDE RECORDS SUMMARY | 2023-05-10 15:54 | External Medical Summary | Summary of Care ---
Author Name Unknown Organization [place] [address] Phone Care Team Providers Care Cell Cleaner Name Role Phone Unavailable Primary Care Provider Unavailabl e Reason for Visit * Reason Comments Eye Problem Encounter Details Date Type Department Care Team Description 05/20/2018 [facility] [place] [address] [place] [address] Juliana Bhagat, PA-C [address] [place] [address] Acute bacterial conjunctivitis of left eye* Allergies Active Allergy Reactions Severity Noted Date Comments Morphine Itching,Rash Medium 05/23/2012 Fentanyl 02/03/2001 throat tightness Nsaids 07/09/2000 nausea * vomiting as of this encounter Medications Prescription Sig. Disp. Refills Start Date End Date Status oxyCODONE-acetaminophen 5-325 mg per tab (PERCOCET) 5-325 MG per tablet Take 1 Tab by mouth every 4 hours as needed for Pain, Severe. 15 Tab 0 05/06/2018 Active MethylPREDNISolone (MEDROL) 4 MG TBPK follow package directions 21 Tab 0 05/06/2018 Active ofloxacin (OCUFLOX) 0.3 % ophthalmic solutionIndications:Acu te bacterial conjunctivitis of left eye Instill 1 [...] - Polio Virus Vaccine (Oral) 988,07/16/1983,1982,08/20 TB Akndace Test 03/19/1983 as of this encounter Social History Tobacco Use Types Packs/Day Years Used Date Current Every Day Smoker Cigarettes 1 15 Smokeless Tobacco: Never Used Alcohol Use Drinks/Week oz/Week Comments No Sex Assigned at Date Recorded Not on file as of this encounter Last Filed Vital Signs Vital Sign Reading Time Taken Blood Pressure 130/84 05/20/2018 7:24 PM EDT Pulse 101 05/20/2018 7:24 PM EDT Temperature 36.7 C (98.1 F) 05/20/2018 7 :24 PM EDT Respiratory Rate 16 05/20/2018 7:24 PM EDT Oxygen Saturation 99% 05/20/2018 7:2 4 PM EDT Inhaled Oxygen Concentration - - Weight 99.8 kg (220 lb) 05/20/2018 7:24 PM EDT Height 182.9 cm (6') 05/20/2018 7:24 PM EDT Body Mass Index 29.84 05/20/2018 7:24 PM EDT in this encounter Instructions * Patient Instructions - Juliana Bhagat PA-C - 05/20/2018 7:51 PM EDT If no improvement by tomorrow late morning, see opthalmology. Take drops as prescribed, but use 2 drops for the next 24 hours, then as written one drop. in this encounter Progress Notes * Juliana Bhagat PA-C - 05/20/2018 7:32 PM EDT Formatting of this note may be different from the original. CC: Left eye pain x yesterday Nursing Notes: Lily Erickson LPN 05/20/187 Signed Malvin Landaverde is a 37 year old male who presents to walk-in clinic today complaining of Chief Complaint Patient presents with Eye Problem Main Symptoms: Patient reports blurry vision in LT eye, very painful, continues to get watery and have gunk around eye. Bright light hurts really bad. Woke up like this yesterday. Denies any injury or scratch to eye. Erythema noted in eye. How long: yesterday Tried: Visine. Pt accompanied by: self Vision: Right Eye: 20/25 Left Eye: 20/80 Both: 20/25 Corrected: contacts, glasses Color: 100% Malvin Landaverde is a 37 year old male who presents with left eye symptoms for 2 days. Patient was accompanied by Self. Quality (Feels like): knife in the eye Severity of Symptoms: Moderate Timing (How often does it occur): constantly Foreign body or trauma? No Contacts and/or glasses? Yes Visual changes (including diplopia, blurry vision, flashes of light)? Blurry vision Any OTC medications? Visine, Flonase, Chronic allergy medications Prior history of "pink eye"? no Any sick contacts? no Any cold symptoms? no ROS EXAM See HPI for pertinent positives and negatives PAST MEDICAL AND SOCIAL HISTORY: Past Medical History: Diagnosis Date Migraine with aura 1996 Nasal bones, closed fracture 1995 Past Surgical History: Procedure Laterality Date LAPAROSCOPY, CHOLECYSTECTOMY WITH CHOLANGIOGRAPHY 12/23/11 Laparoscopic cholecystectomy and cholangiogram 12/23/11 Dr. Cortez at [facility] PROCEDURE NEC 05/07/2000 L5,S1 hemilectomy with partial medial ferrintectomy Social History Substance Use Topics Smoking status: Current Every Day Smoker Packs/day: 1.00 Years: 15.00 Types: Cigarettes Smokeless tobacco: Never Used Alcohol use No Current Outpatient Prescriptions Medication Sig Dispense Refill MethylPREDNISolone (MEDROL) 4 MG TBPK follow package directions 21 Tab 0 oxyCODONE-acetaminophen 5-325 mg per tab (PERCOCET) 5-325 MG per tablet Take 1 Tab by mouth every 4hours as needed for Pain, Severe. 15 Tab 0 Review of patient's allergies indicates: Allergen Reactions Morphine Itching and Rash Fentanyl throat tightness Nsaids nausea * vomiting OBJECTIVE: BP 130/84 | Pulse 101 | Temp (Src) 98.1 (Tympanic) | Resp 16 | Ht 6' 0" (1.829m) | Wt 220 lbs (99.791kg) | BMI 29.84 kg/m | BSA 2.25 m | SaO2 99% Wt Readings from Last 1 Encounters: 05/20/18 99.8 kg (220 lb) General appearance: awake, alert, no apparent distress Eyes: PERRL, EOMI without pain. Left conjunctiva with injection, without purulent eye drainage. Crusting of left lid is not noted. There is no foreign body noted in left eye(s). Due to light sensitivity, pt could not tolerate fundiexam. EARS: External ears normal, bilateral canals with redness and dullness to TMs, increased loose cerumen noted. Neck: normal, supple, no adenopathy Respiratory: clear to auscultation, no rhonchi, no wheezes and no crackles Heart: regular rate, regular rhythm, no murmurs , no rubs and no gallops SKIN: skin color, texture, turgor are normal, no rashes or significant lesions PROCEDURE: Left eye: topical anesthesia provided with one drop of Proparacaine 0.5% ophthalmic solution. One drop of sterile eye wash applied to Fluorescein ophthalmic strip and used to stain eye. Gonzalez lamp examination showed no uptake of dye. No dendritic body noted. No foreign bodies. Eye then flushed withsterile eye wash solution. Patient tolerated the procedure well. Appeared to have less pain after exam. Assessment: H10.32 Acute bacterial conjunctivitis of left eye (primary encounter diagnosis) Plan: Ofloxacin 0.3 % op soln Sig:Instill 1 drop into eye 4 times a day. Was initially concerned for shingles, though pt sxs do not align. Did exam to look specifically forFB or dendritic lesion. Which were both absent. Due to pt CONTINUED contact use, I did order ofloxacin drops. Pt was told to discontinue lenses upon arriving home tonight and only wear glasses. Was told to place 2 drops in eyes for the next 24 hours to help alleviate some discomfort. Under laying concern of something more, pt was told to call opthalmology tomorrow if no improvementis noted. However, opthalmology is closed at this time. Was told to go to ED if worsening occurred or vesicles appeared. Patient goals for plan of care were discussed Juliana Bhagat PA-C [place] [address] [facility] [address] in this encounter Nursing Notes * Lily Erickson, IDRIS - 05/20/2018 7:23 PM EDT Formatting of this note may be different from the original. Malvin Landaverde is a 37 year old male who presents to walk-in clinic today complaining of Chief Complaint Patient presents with Eye Problem Main Symptoms: Patient reports blurry vision in LT eye, very painful, continues to get watery and have gunk around eye. Bright light hurts really bad. Woke up like this yesterday. Denies any injury or scratch to eye. Erythema noted in eye. How long: yesterday Tried: Visine. Pt accompanied by: self Vision: Right Eye: 20/25 Left Eye: 20/80 Both: 20/25 Corrected: contacts, glasses Color: 100% in this encounter Plan of Treatment Health Maintenance Due Date Last Done Comments DTaP,Tdap,and Td Vaccines (5 - Tdap) 2001 07/22/1994, 12/17/1984, 01/14/1984, Additional history exists PNEUMOCOCCAL 19-64 MEDIUM RI SK (1 of 1 - PPSV23) 2001 LIPID SCREEN EVERY 5 YRS-MEN AGE 35-75 2017 12/26/2001 Influenza Vaccine (FLU shot) (#1) 2018 as of this encounter Implants Not on fileas of this encounter Visit Diagnoses Diagnosis Acute bacterial conjunctivit is of left eye - Primary in this encounter
--- OUTSIDE RECORDS SUMMARY | 2023-05-10 15:54 | External Medical Summary | Summary of Care ---
Author Name Unknown Organization [place] [address] Care Team Providers Care Oven Builder Name Role Phone Unavailable Primary Care Provider Unavailabl e Reason for Visit * Reason Comments Hospital Follow-Up Encounter Details Date Type Department Care Team Description 07/20/2018 Telephone Gastroenterology, [facility] [address] [facility] [place] [address] Mari Gilbert CRNP [address] [facility] [place] [address] [phone] Hospital Follow-Up Allergies Active Allergy Reactions Severity [...] Active ofloxacin (OCUFLOX) 0.3 % ophthalmic solutionIndications:Ac [place] bacterial conjunctivitis of left eye Instill 1 [...] encounter Miscellaneous Notes * Telephone Encounter - Mari Gilbert CRNP - 07/20/2018 3:14 PM EST Received call from [facility] requesting OP GI follow up Please [...] For more information, please contact: [place] Quinonez [phone]
--- OUTSIDE RECORDS SUMMARY | 2023-05-10 15:54 | External Medical Summary | Summary of Care ---
Author Name Unknown Organization [place] [address] Care Team Providers Care Special Education Para Professional Name Role Phone Unavailable Primary Care Provider Unavailabl e Reason for Visit * Reason Comments Hospital Follow-Up Encounter Details Date Type Department Care Team Description 07/20/2018 Telephone Gastroenterology, [facility] [address] [place] [address] Mari Gilbert CRNP [address] [facility] [place] [address] [phone] Hospital Follow-Up Allergies Active Allergy Reactions Severity [...] Active ofloxacin (OCUFLOX) 0.3 % ophthalmic solutionIndications:Ac [place] bacterial conjunctivitis of left eye Instill 1 [...] Encounter - Carla Cline OSA - 07/21/2018 3:10 PM EST Patient is scheduled and aware of appointment on 08/05 with Kalyn * Telephone Encounter - Carla Cline OSA - 07/21/2018 3:02 PM EST Lm on cell phone number to call us back. * Telephone Encounter - Mari Gilbert CRNP - 07/20/2018 3:14 PM EST Received call from [facility] requesting OP GI follow up Please call the pt tomorrow and offer appt at location closer to his home Noncontrast CT abd w/ wall thickening of sigmoid No evidence of obstruction, ileus or appendicitis ER will send home with supplies for c.diff and culture AMS in this encounter Plan of Treatment Upcoming Encounters Date Type Specialty Care Team Description 08/05/2018 Office Visit Gastroenterology Kalyn Darling CRNP [address] [facility] [place] [address] [phone] Health Maintenance Due Date Last Done Comments [...] For more information, please contact: [place] Quinonez [phone]
== END 2023-05-06 14:35 | disposition left against medical advice (07) | DRG 392 ==
LOC: ED 14:04 → 2N 18:31 → SUATTDRO 18:31 → 2N 20:36

== ENCOUNTER 2023-10-05 21:07 | Inpatient (IN) ==
[2023-10-05] MEDS ORDERED: VANCOMYCIN CONSULT ACTIVE PRN (21:49)
[2023-10-05] MEDS: SODIUM CHLORIDE 0.9% 1,000 ML IV SCH (21:50)
[2023-10-05 22:21] LABS: Basophils # (auto) 0.05 K/uL (0.00-0.20); Basophils % (auto) 0.3 %; Eosinophils # (auto) 0.06 K/uL (0.00-0.50); Eosinophils % (auto) 0.3 %; Hematocrit (blood only) 39.2 % (42.0-52.0); Hemoglobin 12.9 g/dl (14.0-18.0); Immature Granulocytes # (auto) 0.09 K/uL (0.01-0.20); Immature Granulocytes % (auto) 0.5 %; Lymphocytes # (auto) 2.37 K/uL (1.20-3.40); Lymphocytes % (auto) 13.6 %; Mean Corpuscular Hemoglobin 27.2 pg (25.0-34.0); Mean Corpuscular Hgb Conc 32.9 g/dL (32.0-36.0); Mean Corpuscular Volume 82.7 fL (80.0-100.0); Mean Platelet Volume 11.3 fL (9.4-12.4); Monocytes # (auto) 1.41 K/uL (0.11-0.59); Monocytes % (auto) 8.1 %; Neutrophils # (auto) 13.41 K/uL (1.40-6.50); Neutrophils % (auto) 77.2 %; Platelet Count 410 K/uL (130-400); RDW Coefficient of Variation 16.2 % (11.5-14.5); RDW Standard Deviation 48.8 fL (36.4-46.3); Red Blood Count 4.74 M/uL (4.70-6.10); White Blood Count 17.39 K/ul (4.8-10.8)
[2023-10-05] MEDS: VANCOMYCIN HCL 1,750 MG in SODIUM CHLORIDE 0.9% 500 ML IV ONE (22:30)
[2023-10-05] MEDS: SODIUM CHLORIDE 0.9% 500 ML IV ONE (22:30)
[2023-10-05] MEDS: CEFEPIME 2,000 MG/20 ML VIAL IV STA (22:30)
[2023-10-05 22:38] LABS: Albumin Level 4.1 gm/dl (3.4-5.0); BUN Creatinine Ratio 13.5 (10-20); Bilirubin,Total 0.8 mg/dl (0.2-1.0); Calcium 9.3 mg/dl (8.6-10.3); Creatinine Clr Calc Pharmacy 111.1 ml/min; Est GFR (African American) 113.3 ml/min; Est GFR (Non-African American) 97.8 ml/min; Globulin 4.3 gm/dl (2.5-4.0); Magnesium 1.8 mg/dl (1.7-2.4); Potassium 3.8 mmol/L (3.5-5.1); Total Protein 8.4 gm/dl (6.0-8.3)
[2023-10-05 22:45] LABS: Troponin I High Sensitivity 10.8 pg/ml (0-20)
[2023-10-05 23:08] LABS: Lyme Ab IgG w/WB Rflx Negative (Negative); Lyme Ab IgM w/WB Rflx Negative (Negative)
[2023-10-05] MEDS ORDERED: oxyCODONE HCL IR 5 MG TAB (IMMEDIATE RELEASE) PO PRN (23:16)
[2023-10-05] MEDS ORDERED: ACETAMINOPHEN 325 MG TAB PO PRN (23:16)
--- NOTE | 2023-10-05 23:46 | History & Physical Report ---
Date of Service October 05, 2023 History of Present Illness Primary Care Provider: NO PCP Allergies Allergy/AdvReac Type Severity Reaction Status Date / Time tramadol Allergy Intermediate swelling Verified 10/05/23 23:21 fentanyl [From Duragesic] Allergy Unknown Unknown Verified 10/05/23 23:27 ketorolac AdvReac Severe FACIAL Verified 10/05/23 23:21 SWELLING/THROAT SWELLING propoxyphene AdvReac Intermediate TONGUE Verified 10/05/23 23:21 NUMBNESS acetaminophen [From Tylenol] AdvReac Unknown TOLD TO Verified 10/05/23 23:21 STAY AWAY FROM USING THIS MED. ibuprofen [From Motrin] AdvReac Unknown Unknown Verified 10/05/23 23:27 Home Medications Medication Instructions Recorded Confirmed Type acetaminophen 500 mg tablet 1,000 mg PO DIRECTED PRN Pain 10/05/23 10/05/23 History (Tylenol Extra Strength) ibuprofen 200 mg tablet 400 - 600 mg PO DIRECTED PRN 10/05/23 10/05/23 Hist ory Pain Past Med/Surg History Medical History Abdominal discomfort on occ over past few months after eating. n/v. after eating. Belching symptom when abdominal discomfort n/v occurs. History of colitis Lesion of colon reason for upcoming procedure. 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 Tobacco use disorder Weight loss, unintentional 50 # since May 04 2023. Surgical History History of anesthesia reaction BP DROPS History of back surgery L4-S1 fusion 1999 History of colonoscopy History of laminectomy History of tooth extraction Hx of cholecystectomy S/P nasal surgery RE-SET D/T FRACTURE Family History Grandfather (Maternal) Family history of diabetes mellitus Social History Smoking Status: Current every day smoker Tobacco Type: Cigarettes Cigarettes Per Day: 1ppd/advised npo; Second Hand Exposure: No; Do You Dip or Chew Tobacco: No; Hx Alcohol Use: No Hx Substance Use: No Preferred Language: Kazakh Communication Ability: Effective Visual Impairment: No Limitations Hearing Ability: Normal Delinquency Counselor Required: No Beliefs That Will Affect Care: None marital status: Single marital status details: lives with nichole Current Living Situation: Family Current Living Situation Comment: staying with my mom now current occupational status: employed 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 Feels Safe at Home: Yes Assistive Devices: Contacts, Denture - Upper, Denture - Lower and Glasses Results & Data Results & Data Vital Signs (Past 12 Hours) Vital Signs Temp Pulse Pulse Resp BP BP Pulse Ox 10/05/23 22:33 100 H 18 165/102 H 96 10/05/23 22:33 95 10/05/23 21:52 95 10/05/23 21:12 36.6 C 132 H 18 143/75 H 98 O2 Del Method 10/05/23 22:33 Room Air 10/05/23 22:33 Room Air 10/05/23 21:52 Room Air 10/05/23 21:12 Room Air Laboratory Results Laboratory Results WBC 17.39 K/ul (4.8-10.8) H 10/05/23 22:00 RBC 4.74 M/uL (4.70-6.10) 10/05/23 22:00 Hgb 12.9 g/dl (14.0-18.0) L 10/05/23 22:00 Hct 39.2 % (42.0-52.0) L 10/05/23 22:00 MCV 82.7 fL (80.0-100.0) 10/05/23 22:00 MCH 27.2 pg (25.0-34.0) 10/05/23 22:00 MCHC 32.9 g/dL (32.0-36.0) 10/05/23 22:00 RDW Std Deviation 48.8 fL (36.4-46.3) H 10/05/23 22:00 RDW Coeff of Gill 16.2 % (11.5-14.5) H 10/05/23 22:00 Plt Count 410 K/uL (130-400) H 10/05/23 22:00 MPV 11.3 fL (9.4-12.4) 10/05/23 22:00 Immature Gran % (Auto) 0.5 % 10/05/23 22:00 Neut % (Auto) 77.2 % 10/05/23 22:00 Lymph % (Auto) 13.6 % 10/05/23 22:00 [place] % (Auto) 8.1 % 10/05/23 22:00 Eos % (Auto) 0.3 % 10/05/23 22:00 Baso % (Auto) 0.3 % 10/05/23 22:00 Neut # (Auto) 13.41 K/uL (1.40-6.50) H 10/05/23 22:00 Lymph # (Auto) 2.37 K/uL (1.20-3.40) 10/05/23 22:00 [place] # (Auto) 1.41 K/uL (0.11-0.59) H 10/05/23 22:00 Eos # (Auto) 0.06 K/uL (0.00-0.50) 10/05/23 22:00 Baso # (Auto) 0.05 K/uL (0.00-0.20) 10/05/23 22:00 Immature Gran # (Auto) 0.09 K/uL (0.01-0.20) 10/05/23 22:00 Sodium 135 mmol/L (136-145) L 10/05/23 22:00 Potassium 3.8 mmol/L (3.5-5.1) 10/05/23 22:00 Chloride 98 mmol/L (98-107) 10/05/23 22:00 Carbon Dioxide 26 mmol/L (21-32) 10/05/23 22:00 Anion Gap 11 (3-11) 10/05/23 22:00 BUN 13 mg/dl (6-23) 10/05/23 22:00 Creatinine 0.96 mg/dl (0.6-1.4) 10/05/23 22:00 Est Cr Clr Drug Dosing 111.1 ml/min 10/05/23 22:00 Est GFR ( Amer) 113.3 ml/min 10/05/23 22:00 Est GFR (Non-Af Amer) 97.8 ml/min 10/05/23 22:00 BUN/Creatinine Ratio 13.5 (10-20) 10/05/23 22:00 Glucose 86 mg/dl (70-99(Fasting)) 10/05/23 22:00 Lactate 1.6 mmol/L (0.4-2.0) 10/05/23 22:00 Calcium 9.3 mg/dl (8.6-10.3) 10/05/23 22:00 Magnesium 1.8 mg/dl (1.7-2.4) 10/05/23 22:00 Total Bilirubin 0.8 mg/dl (0.2-1.0) 10/05/23 22:00 AST 30 U/L (13-39) 10/05/23 22:00 ALT 20 U/L (7-52) 10/05/23 22:00 Alkaline Phosphatase 116 U/L (34-104) H 10/05/23 22:00 Total Creatine Kinase 636 U/L (30-223) H 10/05/23 22:00 Troponin I High Sens 10.8 pg/ml (0-20) 10/05/23 22:00 Total Protein 8.4 gm/dl (6.0-8.3) H 10/05/23 22:00 Albumin 4.1 gm/dl (3.4-5.0) 10/05/23 22:00 Globulin 4.3 gm/dl (2.5-4.0) H 10/05/23 22:00 Albumin/Globulin Ratio 1.0 (0.9-2) 10/05/23 22:00 Procalcitonin 4.20 ng/ml (0-0.5) H 10/05/23 22:00 Lyme Disease IgG Ab Negative (Negative) 10/05/23 22:00 Lyme Disease IgM Ab Negative (Negative) 10/05/23 22:00
[2023-10-06] MEDS: lisinopril 2.5 MG TAB PO ONE (00:01)
[2023-10-06] MEDS: MAGNESIUM SULFATE / D5W 1 GM/100 ML BAG IV ONE (00:08)
[2023-10-06] MEDS: cloNIDine HCL 0.1 MG TAB PO ONE (00:08)
[2023-10-06] MEDS: POTASSIUM CHLORIDE CRTAB 20 MEQ TABCR PO STA (00:09)
--- NOTE | 2023-10-06 00:57 | History & Physical Report ---
Date of Service October 06, 2023 Assessment & Plan (1) Infected hand: Plan: 43yo male presenting with infection of left hand which started approximately 1.5 weeks ago. Uncertain what the initial event was - possibly a chemical burn, specifically concerned for an alkali burn given that patient reports severe burning and blistering after the application of water? Possible ongoing reaction to the lidoderm patches and topical treatments. Predominant concern at this point is the extension of the infection as well as the severe pain and discoloration of the patient's hand and part of his forearm. Concern for possibility of necrotizing fasciitis vs rapid ascending infection. Concern for possible compartment syndrome given discoloration, weak pulses, elevation of RA=577 (although patient did walk from [facility]). Tachycardic, elevated WBC count and Procalcitonin -Will order STAT CT of the left hand and forearm to look for ascending infection -Order LUE arterial doppler to assess vasculature -Continue IVF LR at 125mL/hr -Vancomycin and Zosyn for broad antibiotic coverage -Tylenol PRN -Morphine PRN -Repeat CK in AM -General Surgery Consultation pending findings of CT History of Present Illness Chief Complaint: pain, redness LUE Primary Care Provider: NO PCP Reddy Landaverde is a pleasant 43yo male with history of HTN and diverticulosis presenting with worsening pain and redness of his LUE. Approximately 1.5 weeks ago patient was working on a car in his garage. He put on a pair of new work gloves that were sitting on his bench. His hand started sweating then he developed a stinging/burning sensation on the dorsum of his left hand. He took his gloves off and noted that there was redness on his hand - no insects, spiders or bite daniels. He went to the sink to wash off with water and reports that when the water hit his hand it really started to burn and sting and he developed blisters where the water hit. He had significant pain in his hand so he placed some Lidoderm patches on his hand and went to sleep. When he woke up in the morning he had blisters covering his hand where the Lidoderm patches were. He has continue to have blisters appear on his hand and they have more recently been appearing on his forearms as well. The pain, redness and blisters have been progressing up his arm over the last several days. He has been taking Tylenol and Ibuprofen for pain control with minimal effect as well as biofreeze. He has been elevating his LUE as well. He reports that his thumb had a dusky, olson discoloration at times and even appeared almost black. The discoloration will last several days then will return to normal color. He feels that overall the swelling has improved but the pain has become more severe. He describes the pain in his hand and arm as if "someone smashed it with a sledgehammer then set it on fire". 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 He reports he has a lot of chemicals in his garage. Tonight he was at work and the pain became so severe that he came to the ER. Of note, he was unable to get a ride so he walked here from [place] In the ER he is afebrile, tachycardic otherwise HD stable ER Course: NSS x 2.5 L Vancomycin Cefepime Allergies Allergy/AdvReac Type Severity Reaction Status Date / Time tramadol Allergy Intermediate swelling Verified 10/05/23 23:21 fentanyl [From Duragesic] Allergy Unknown Unknown Verified 10/05/23 23:27 ketorolac AdvReac Severe FACIAL Verified 10/05/23 23:21 SWELLING/THROAT SWELLING propoxyphene AdvReac Intermediate TONGUE Verified 10/05/23 23:21 NUMBNESS acetaminophen [From Tylenol] AdvReac Unknown TOLD TO Verified 10/05/23 23:21 STAY AWAY FROM USING THIS MED. ibuprofen [From Motrin] AdvReac Unknown Unknown Verified 10/05/23 23:27 Home Medications Medication Instructions Recorded Confirmed Type acetaminophen 500 mg tablet 1,000 mg PO DIRECTED PRN Pain 10/05/23 10/05/23 History (Tylenol Extra Strength) ibuprofen 200 mg tablet 400 - 600 mg PO DIRECTED PRN 10/05/23 10/05/23 History Pain Past Med/Surg History Medical History Weight loss, unintentional 50 # since May 04 2023. History of colitis Abdominal discomfort on occ over past few months after eating. n/v. after eating. Belching symptom when abdominal discomfort n/v occurs. Lesion of colon reason for upcoming procedure. 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 Surgical History History of colonoscopy History of laminectomy History of anesthesia reaction BP DROPS History of tooth extraction S/P nasal surgery RE-SET D/T FRACTURE Hx of cholecystectomy History of back surgery L4-S1 fusion 1999 Family History Grandfather (Maternal) Family history of diabetes mellitus Social History Smoking Status: Current every day smoker Tobacco Type: Cigarettes Cigarettes Per Day: 1ppd/advised npo; Second Hand Exposure: No; Do You Dip or Chew Tobacco: No; Hx Alcohol Use: No Hx Substance Use: No Preferred Language: Mohawk Communication Ability: Effective Visual Impairment: No Limitations Hearing Ability: Normal Manager Dairy Required: No Beliefs That Will Affect Care: None marital status: Single marital status details: lives with nichole Current Living Situation: Family Current Living Situation Comment: staying with my mom now current occupational status: employed 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 Dusky discoloration of dorsum of hand and left thumb, fluid filled blisters present on dorsum of hand. Warmth and redness extending up forearm. Area of dusky discoloration noted on medial surface of forearm near elbow. Capillary refill of 5 digits < 2 seconds. Edema of hand and forearm with some firmness of forearm. Pulses not strongly palpable but easily dopplered radial and ulnar pulse. Extreme pain with palpation of hand, wrist and forearm. No crepitus. HEENT: NC/AT, PERRL, EOMI, anicteric sclera, conjunctiva without injection, external ear normal to inspection and nontender, nares patent, moist mucus membranes, dentition intact, no oropharyngeal lesions, neck supple, trachea mi dline, no LAD, no thyromegaly, no JVD Heart: +S1/S2, regular, tachycardic, no m/r/g Lungs: equal air entry bilaterally, no rales/rhonchi/wheezes Abd: +BS, soft, NT/ND, no masses/organomegaly/ascites Ext: warm, 2+ pulses in UE/LE bilaterally, no clubbing/cyanosis or edema Neuro: nonfocal, patient AA&O x 4, speech intact, no facial droop, moving all extremities on command with equal strength 5/5 Results & Data Results & Data Vital Signs (Past 12 Hours) Vital Signs Temp Pulse Pulse Resp BP BP Pulse Ox 10/06/23 00:02 114 H 19 154/95 H 97 10/05/23 23:48 116 H 16 159/102 H 97 10/05/23 22:33 100 H 18 165/102 H 96 10/05/23 22:33 95 10/05/23 22:30 108 H 10/05/23 21:52 95 10/05/23 21:12 36.6 C 132 H 18 143/75 H 98 O2 Del Method 10/06/23 00:02 Room Air 10/05/23 23:48 Room Air 10/05/23 22:33 Room Air 10/05/23 22:33 Room Air 10/05/23 22:30 10/05/23 21:52 Room Air 10/05/23 21:12 Room Air Laboratory Results Laboratory Results WBC 17.39 K/ul (4.8-10.8) H 10/05/23 22:00 RBC 4.74 M/uL (4.70-6.10) 10/05/23 22:00 Hgb 12.9 g/dl (14.0-18.0) L 10/05/23 22:00 Hct 39.2 % (42.0-52.0) L 10/05/23 22:00 MCV 82.7 fL (80.0-100.0) 10/05/23 22:00 MCH 27.2 pg (25.0-34.0) 10/05/23 22:00 MCHC 32.9 g/dL (32.0-36.0) 10/05/23 22:00 RDW Std Deviation 48.8 fL (36.4-46.3) H 10/05/23 22:00 RDW Coeff of Gill 16.2 % (11.5-14.5) H 10/05/23 22:00 Plt Count 410 K/uL (130-400) H 10/05/23 22:00 MPV 11.3 fL (9.4-12.4) 10/05/23 22:00 Immature Gran % (Auto) 0.5 % 10/05/23 22:00 Neut % (Auto) 77.2 % 10/05/23 22:00 Lymph % (Auto) 13.6 % 10/05/23 22:00 Ida % (Auto) 8.1 % 10/05/23 22:00 Eos % (Auto) 0.3 % 10/05/23 22:00 Baso % (Auto) 0.3 % 10/05/23 22:00 Neut # (Auto) 13.41 K/uL (1.40-6.50) H 10/05/23 22:00 Lymph # (Auto) 2.37 K/uL (1.20-3.40) 10/05/23 22:00 Ida # (Auto) 1.41 K/uL (0.11-0.59) H 10/05/23 22:00 Eos # (Auto) 0.06 K/uL (0.00-0.50) 10/05/23 22:00 Baso # (Auto) 0.05 K/uL (0.00-0.20) 10/05/23 22:00 Immature Gran # (Auto) 0.09 K/uL (0.01-0.20) 10/05/23 22:00 Sodium 135 mmol/L (136-145) L 10/05/23 22:00 Potassium 3.8 mmol/L (3.5-5.1) 10/05/23 22:00 Chloride 98 mmol/L (98-107) 10/05/23 22:00 Carbon Dioxide 26 mmol/L (21-32) 10/05/23 22:00 Anion Gap 11 (3-11) 10/05/23 22:00 BUN 13 mg/dl (6-23) 10/05/23 22:00 Creatinine 0.96 mg/dl (0.6-1.4) 10/05/23 22:00 Est Cr Clr Drug Dosing 111.1 ml/min 10/05/23 22:00 Est GFR ( Amer) 113.3 ml/min 10/05/23 22:00 Est GFR (Non-Af Amer) 97.8 ml/min 10/05/23 22:00 BUN/Creatinine Ratio 13.5 (10-20) 10/05/23 22:00 Glucose 86 mg/dl (70-99(Fasting)) 10/05/23 22:00 Lactate 1.6 mmol/L (0.4-2.0) 10/05/23 22:00 Calcium 9.3 mg/dl (8.6-10.3) 10/05/23 22:00 Magnesium 1.8 mg/dl (1.7-2.4) 10/05/23 22:00 Total Bilirubin 0.8 mg/dl (0.2-1.0) 10/05/23 22:00 AST 30 U/L (13-39) 10/05/23 22:00 ALT 20 U/L (7-52) 10/05/23 22:00 Alkaline Phosphatase 116 U/L (34-104) H 10/05/23 22:00 Total Creatine Kinase 636 U/L (30-223) H 10/05/23 22:00 Troponin I High Sens 10.8 pg/ml (0-20) 10/05/23 22:00 Total Protein 8.4 gm/dl (6.0-8.3) H 10/05/23 22:00 Albumin 4.1 gm/dl (3.4-5.0) 10/05/23 22:00 Globulin 4.3 gm/dl (2.5-4.0) H 10/05/23 22:00 Albumin/Globulin Ratio 1.0 (0.9-2) 10/05/23 22:00 Procalcitonin 4.20 ng/ml (0-0.5) H 10/05/23 22:00 Nasal Screen MRSA (PCR) Negative (Negative) 10/05/23 23:52 Lyme Disease IgG Ab Negative (Negative) 10/05/23 22:00 Lyme Disease IgM Ab Negative (Negative) 10/05/23 22:00 Diagnostic Findings Hand X-ray - per my interpretation - image shows soft tissue swelling. No free air Code Status & VTE Plan VTE Prophylaxis Plan VTE Prophylaxis will be ordered: Yes PG Care Time/CCT Total # of Minutes Spent Total Time Spent with Patient: Total time spent is greater than 50% in coordination of care (as documented) at patient's floor/unit and/or counseling patient: Coding Level of Care Code 13739 INT INP/OBS CARE MIN Diagnoses Infected hand L08.9
--- NOTE | 2023-10-06 03:39 | Communication Note ---
Date of Service: October 06, 2023 I was earlier requested to admit patient following admission by [facility] team last April,. Patient informed me that he saw Shilpa Cisneros NP of [facility] following hospital discharge last year. Ms. Cisneros has left practice but patient intends to follow-up at the same [facility] clinic for PCP services in the future as per conversation. Information relayed to ED provider and case loader operator who will contact [facility] hospitalist for admission.
[2023-10-06] MEDS ORDERED: POLYETHYLENE (MIRALAX) 17 GM PACK PO PRN (03:41)
[2023-10-06] MEDS ORDERED: ONDANSETRON INJ 2 MG/ML 2 ML VIAL IV PRN (03:41)
[2023-10-06] MEDS ORDERED: VANCOMYCIN CONSULT ACTIVE PRN (03:41)
[2023-10-06] MEDS ORDERED: MoRPHine SULFATE 2 MG/ML CARP IV PRN (03:41)
[2023-10-06] MEDS ORDERED: VANCOMYCIN HCL 1,000 MG in SODIUM CHLORIDE 0.9% 250 ML IV SCH (03:41)
[2023-10-06] MEDS ORDERED: ENOXAPARIN 1 MG/KG SC SCH (03:45)
--- NOTE | 2023-10-06 04:02 | Ultrasound Report ---
Exam(s): US ARTERIAL LEFT UPPER EXTREMITY EXAM: US Duplex Left Upper Extremity Arteries CLINICAL HISTORY: Reason for exam: dusky left thumb. TECHNIQUE: Real-time duplex ultrasound scan of the left upper extremity arteries integrating B-mode two-dimensional vascular structure, Doppler spectral analysis and color flow Doppler imaging. COMPARISON: No relevant prior studies available. FINDINGS: Left subclavian artery: No acute abnormality. No occlusion or significant stenosis on color flow and spectral Doppler imaging. Normal waveform. Left axillary artery: No acute abnormality. No occlusion or significant stenosis on color flow and spectral Doppler imaging. Normal waveform. Left brachial artery: No acute abnormality. No occlusion or significant stenosis on color flow and spectral Doppler imaging. Normal waveform. Left radial artery: Abrupt loss of flow/occlusion of the distal radial artery at the level of the distal forearm. No calcified plaque identified. No flow velocity elevation proximal to the occlusion to suggest stenosis. No flow identified in the radial artery distally to the wrist. Left ulnar artery: No acute abnormality. No occlusion or significant stenosis on color flow and spectral Doppler imaging. Normal waveform. Soft tissues: Unremarkable. 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 Communications: Call Doctor Acute arterial occlusion/ critical stenosis Electronically signed by: Tristan Hussein M.D. 10/06/23 03:05 AM
--- NOTE | 2023-10-06 04:16 | CT Scan Report ---
Exam(s): CT EXTREMITY LEFT UPPER Without Contrast EXAM: CT Left Upper Extremity Without Intravenous Contrast CLINICAL HISTORY: Reason for exam: ?Necrotizing fasciitis?. TECHNIQUE: Axial computed tomography images of the left upper extremity without intravenous contrast. CTDI is 19.67 mGy and DLP is 977.28 mGy-cm. Automated exposure control was utilized for the study. A dose lowering technique was utilized adhering to the principles of ALARA. COMPARISON: No relevant prior studies available. FINDINGS: Bones/joints: No acute fracture. No dislocation. No bone erosion or periosteal reaction. Soft tissues: Mild diffuse subcutaneous infiltration. No focal mass or collection. No interstitial gas. IMPRESSION: Mild diffuse subcutaneous infiltration/edema. No discrete collection. No interstitial gas to suggest necrotizing fasciitis. Electronically signed by: Tristan Hussein M.D. 10/06/23 04:16 AM
--- NOTE | 2023-10-06 04:21 | CT Scan Report ---
Exam(s): CT EXTREMITY LEFT UPPER Without Contrast EXAM: CT Left Upper Extremity Without Intravenous Contrast CLINICAL HISTORY: Reason for exam: ?nec fasciitis?. TECHNIQUE: Axial computed tomography images of the left upper extremity without intravenous contrast. CTDI is 19.67 mGy and DLP is 997.28 mGy-cm. Automated exposure control was utilized for the study. A dose lowering technique was utilized adhering to the principles of ALARA. COMPARISON: No relevant prior studies available. FINDINGS: Bones/joints: No acute fracture. No dislocation. No erosion or periosteal reaction. Soft tissues: Diffuse infiltration of the subcutaneous fat from the elbow to the wrist. No focal mass, phlegmon or collection. No interstitial gas. Underlying musculature grossly unremarkable. IMPRESSION: Diffuse infiltration of the subcutaneous fat from the elbow to the wrist consistent with edema or cellulitis. No interstitial gas or definite deep intramuscular involvement. Electronically signed by: Tristan Hussein M.D. 10/06/23 04:20 AM
[2023-10-06] MEDS: PIPERACILLIN/TAZOBACTAM 4.5 GM in DEXTROSE 5% MINI-B 100 ML IV ONE (04:38)
[2023-10-06] MEDS: IBUPROFEN 600 MG TAB PO PRN (04:41)
[2023-10-06] MEDS: ENOXAPARIN 100 MG/1ML SYR SQ SCH (04:42)
[2023-10-06] MEDS: VANCOMYCIN HCL 1,500 MG in SODIUM CHLORIDE 0.9% 500 ML IV SCH (05:26)
[2023-10-06] MEDS: CALCIUM CARBONATE 500 MG CHEWABLE TAB PO PRN (05:55)
[2023-10-06] MEDS: MoRPHine SULFATE 4 MG/ML 1 ML CARP\\VIAL IV PRN (05:59)
[2023-10-06] MEDS: LACTATED RINGER'S 1,000 ML IV SCH (06:04)
--- NOTE | 2023-10-06 07:09 | XRay Report ---
LEFT HAND 3 VIEWS CLINICAL HISTORY: Cellulitis. FINDINGS: 3 views of the left hand are obtained. No prior studies are available for comparison at the time of dictation. The skeletal structures are well mineralized. No fracture is seen. The joint spac es are maintained. Mild soft tissue edema is present throughout the hand. No soft tissue gas or radio dense foreign body is identified. IMPRESSION: Soft tissue swelling with no acute bony abnormality identified. Electronically signed by: Justino Fuentes M.D. 10/06/2023 7:08 AM
[2023-10-06 07:17] LABS: Appearance Urine Turbid (Clear); Bacteria Urine Automated Negative (Negative); Bilirubin Urine Negative (Negative); Blood Urine Negative (Negative); Color Urine Dark Yellow; Glucose Urine UA Negative (Negative); Ketones Urine Trace (Negative); Leukocyte Esterase Urine Negative (Negative); Nitrite Urine Negative (Negative); Protein Urine Negative (Negative); RBC Urine Automated 0-4 /hpf (0-4); Specific Gravity Urine 1.033 (1.000-1.030); Urobilinogen Urine Negative (Negative); pH Urine 5.5 (4.5-7.5)
[2023-10-06 07:47] LABS: Amphetamines+Metham, Urine Neg (Neg); Barbiturates, Urine Neg (Neg); Benzodiazepine, Urine Neg (Neg); Cocaine, Urine Pos (Neg); MDMA (Ecstacy), Urine Pos (Neg); Marijuana, Urine Neg (Neg); Methadone, Urine Neg (Neg); Opiate, Urine Pos (Neg); Phencyclidine, Urine Neg (Neg)
--- NOTE | 2023-10-06 09:25 | Pharmacy Report ---
Pharmacy PK ABX Note - Date of Service October 06, 2023 - Assessment and Plan Assessment 43 year old M receiving Zosyn/vancomycin for treatment of possible left hand cellulitis/necrotizing fasciitis. Pertinent microbiologic data includes: blood cultures pending. Day # 1 of antimicrobial therapy. Plan Vancomycin * Loading dose: 1750 mg IV x 1 * Maintenance dose: 1500 mg IV every 12 hours * Regimen is predicted to achieve target AUC/CHECO of 400-600 mg/L.hr * Random level ordered for: 10/06/23 with AM labs. Pharmacy will continue to follow and will adjust dose/frequency as necessary. Thank you. Pharmacy has transitioned to AUC monitoring for vancomycin. AUC/CHECO is the preferred PK/PD target and is associated with decreased risk of nephrotoxicity compared to traditional trough targets.
--- NOTE | 2023-10-06 09:36 | Consultation ---
Date of Consultation October 06, 2023 Assessment & Plan (1) Radial artery occlusion, left: Pt with radial artery occlusion on US. Pt with excellent ulnar flow/collateralization on exam. All fingers except thumb remain assuredly viable. Thumb with mottling/purple discoloration, although does have cap refill and movement. Primary location of pain is dorsum of hand, not thumb. Suggest echo to r/o cardioembolic source, but may have developed thrombus related to his extensive infection. Also recommend evaluation by orthopedics/hand surgeon. Discussed with resident at time of exam. Pt also aware. History of Present Illness Reason for Consultation: L radial art occlusion Attending Physician: Migue Denney DO History of Present Illness 43 yo m with hx of lumbar radiculopathy s/p lumbar surgery, lumbar spine osteomyelitis, diverticulitis, HTN, admitted with L hand/forearm infection that started about 1-2 weeks ago. Pt states he used some gloves in his garage and felt burning to his L hand, took the gloves off and noted an area on the dorsum of his hand that appeared to be burned. Since that time, the swelling, pain, and erythema has worsened progressively. The erythema, edema, and pain is now progressed to his proximal forearm and his L thumb. Pt states his L thumb will be purple, then become reddened again. States his pain is primarily on his dorsal hand. States can move his L thumb normally and it is not particularly painful. Denies palpitations, MAZARIEGOS, fever, chest pain, SOB, abd pain, N/V, rest pain, claudication, other complaints. Arterial US imaging demonstrates occlusion of distal L radial artery. Allergies Allergy/AdvReac Type Severity Reaction Status Date / Time tramadol Allergy Intermediate swelling Verified 10/05/23 23:21 fentanyl [From Duragesic] Allergy Unknown Unknown Verified 10/05/23 23:27 ketorolac AdvReac Severe FACIAL Verified 10/05/23 23:21 SWELLING/THROAT SWELLING propoxyphene AdvReac Intermediate TONGUE Verified 10/05/23 23:21 NUMBNESS acetaminophen [From Tylenol] AdvReac Unknown TOLD TO Verified 10/05/23 23:21 STAY AWAY FROM USING THIS MED. ibuprofen [From Motrin] AdvReac Unknown Unknown Verified 10/05/23 23:27 Home Medications Medication Instructions Recorded Confirmed Type acetaminophen 500 mg tablet 1,000 mg PO DIRECTED PRN Pain 01/30/24 01/30/24 History (Tylenol Extra Strength) ibuprofen 200 mg tablet 400 - 600 mg PO DIRECTED PRN 10/05/23 10/05/23 History Pain Patient History Medical History Weight loss, unintentional 50 # since May 04 2023. History of colitis Abdominal discomfort on occ over past few months after eating. n/v. after eating. Belching symptom when abdominal discomfort n/v occurs. Lesion of colon reason for upcoming procedure. 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 Surgical History History of colonoscopy History of laminectomy History of anesthesia reaction BP DROPS History of tooth extraction S/P nasal surgery RE-SET D/T FRACTURE Hx of cholecystectomy History of back surgery L4-S1 fusion 1999 Family History Grandfather (Maternal) Family history of diabetes mellitus Social History Smoking Status: Current every day smoker Tobacco Type: Cigarettes Cigarettes Per Day: 1/2 pack; Second Hand Exposure: No; Do You Dip or Chew Tobacco: No; Hx Alcohol Use: No Hx Substance Use: No Preferred Language: Occitan Communication Ability: Effective Visual Impairment: No Limitations Hearing Ability: Normal Accident Investigator Required: No Beliefs That Will Affect Care: None marital status: Single marital status details: lives with nichole Current Living Situation: Alone Current Living Situation Comment: house current occupational status: employed 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 Feels Safe at Home: Yes Assistive Devices: None Review of Systems Review of Systems: All systems reviewed & are unremarkable except as noted in HPI & below Physical Exam Constitutional: WD/WN, vitals as above cooperative and + in distress (mild mental distress) ENMT: Ears: no hearing impairment Neck: trachea midline Respiratory: normal respiratory effort, lungs clear to auscultation Auscultation: + diminished lung sounds Cardiovascular: Rate/Rhythm: regular rhythm and + tachycardic Vessels: posterior tibial pulses present, dorsalis pedis pulses present, radial pulses present (nonpalpable LUE, collateralized from ulnar, +3 RUE) and ulnar pulses present (+3 LUE, +3 RUE); + abnormal peripheral pulses Extremities: + edema (LUE +2 edema) L palmar arches easily dopplered. All fingers with brisk cap refill except thumb. L thumb cap refill 3 seconds proximally until distal pad, then 6 seconds distally Gastrointestinal (Abdomen): Inspection/Auscultation: abdomen normal to inspection and normal bowel sounds Percussion/Palpation: abdomen soft; abdomen nontender Musculoskeletal: Extremities: strength 5/5 throughout Skin: L dorsal hand with nickel sized dry eschar, multiple fluid filled blisters. Erythema and edema extends proximally to proximal forearm. Mottling of entire L thumb to thenar eminence. remainder of palm and fingers normal color with mild edema. Significant tenderness during examination, limiting eval of digital arteries. Neurologic: moves all extremities and awake; no focal motor deficits and not confused Psychiatric: Orientation: alert and oriented x 3 Affect: + depressed affect and + anxious affect Results & Data Vital Signs (Past 12 Hours) Vital Signs Temp Pulse Pulse Resp BP Pulse Ox O2 Del Method 10/06/23 01:07 105 H 19 97 10/06/23 01:00 36.8 C 112 H 18 155/95 H 92 Room Air 10/06/23 00:02 114 H 19 154/95 H 97 Room Air 10/05/23 23:48 116 H 16 159/102 H 97 Room Air 10/05/23 22:33 100 H 18 165/102 H 96 Room Air 10/05/23 22:33 95 Room Air 10/05/23 22:30 108 H 10/05/23 21:52 95 Room Air
--- NOTE | 2023-10-06 11:17 | Orthopedic Consultation ---
Date of Consultation October 06, 2023 Assessment & Plan (1) Radial artery occlusion, left: Will discuss findings with Dr. Wilson. He has mottling of the dorsum of his left hand and left thumb, suspect this is from radial artery occlusion. No focal collection/abscess on CT scan of hand or forearm. No plans for surgical debridement or I&D at this time. Might benefit from bulky wrap for swelling control, but did not do that yet because Dr. Wilson still needs to evaluate. Currently not NPO. Allowed for finger ROM left hand and elbow. No evidence of septic joints left hand, wrist or elbow. Agree with IV antibiotics for cellulitis. He will need seen by Dr. Wilson today to determine further treatment plan from orthopedic standpoint. May need urgent vascular intervention for radial artery. (2) Infected hand: Supervising Physician Co-Signing Physician Notes I saw and examined the patient, reviewed his US and CT findings, and agree with above note. I performed the substantive portion of the visit. I recommend patient be transferred urgently today to tertiary care hospital with hand surgeon coverage. He is not adequately perfusing his left thumb as a result of the radial artery occlusion, so he likely needs a revascularization procedure. I spoke with Dr. Mcfadden, our vascular surgeon, and he says this would need to be done by a hand surgeon, not vascular, and he agrees with transfer to a tertiary care facility with a hand surgeon. Skin blistering likely a separate problem, from a contact dermatitis either from the gloves he wore or the lidocaine patches he used. While cellulitis is po ssible, and potential benefit of antibiotics outweighs the risk of no antibiotics, his skin redness also seems to be more likely to be from dermatitis. Would leave his hand open to air until he's transferred to allow for repeat examinations, but recommend keeping the hand warm and below the level of his heart to maximize perfusion of the hand. I spoke with Dr. Denney about the above plan to transfer as well. History of Present Illness Reason for Consultation: left arm necrosis, swelling, pain x 1.5 weeks Attending Physician: Migue Denney, History of Present Illness Reddy Landaverde is a pleasant 43yo male with history of HTN and diverticulosis presenting with worsening pain and redness of his LUE. Approximately 1.5 weeks ago patient was working on a car in his garage. He put on a pair of new work gloves that were sitting on his bench. His hand started sweating then he developed a stinging/burning sensation on the dorsum of his left hand. He took his gloves off and noted that there was redness on his hand - no insects, spiders or bite daniels. He went to the sink to wash off with water and reports that when the water hit his hand it really started to burn and sting and he developed blisters where the water hit. He had significant pain in his hand so he placed some Lidoderm patches on his hand and went to sleep. When he woke up in the morning he had blisters covering his hand where the Lidoderm patches were. He has continue to have blisters appear on his hand and they have more recently been appearing on his forearms as well. The pain, redness and blisters have been progressing up his arm over the last several days. He has been taking Tylenol and Ibuprofen for pain control with minimal effect as well as biofreeze. He has been elevating his LUE as well. He reports that his thumb had a dusky, olson discoloration at times and even appeared almost black. The discoloration will last several days then will return to normal color. He feels that overall the swelling has improved but the pain has become more severe. He describes the pain in his hand and arm as if "someone smashed it with a sledgehammer then set it on fire". 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 He reports he has a lot of chemicals in his garage. Tonight he was at work and the pain became so severe that he came to the ER. Of note, he was unable to get a ride so he walked here from [place] Allergies Allergy/AdvReac Type Severity Reaction Status Date / Time tramadol Allergy Intermediate swelling Verified 10/05/23 23:21 fentanyl [From Duragesic] Allergy Unknown Unknown Verified 10/05/23 23:27 ketorolac AdvReac Severe FACIAL Verified 10/05/23 23:21 SWELLING/THROAT SWELLING propoxyphene AdvReac Intermediate TONGUE Verified 10/05/23 23:21 NUMBNESS acetaminophen [From Tylenol] AdvReac Unknown TOLD TO Verified 10/05/23 23:21 STAY AWAY FROM USING THIS MED. ibuprofen [From Motrin] AdvReac Unknown Unknown Verified 10/05/23 23:27 Home Medications Medication Instructions Recorded Confirmed Type acetaminophen 500 mg tablet 1,000 mg PO DIRECTED PRN Pain 10/05/23 10/05/23 History (Tylenol Extra Strength) ibuprofen 200 mg tablet 400 - 600 mg PO DIRECTED PRN 10/05/23 10/05/23 History Pain Patient History Medical History Weight loss, unintentional 50 # since May 04 2023. History of colitis Abdominal discomfort on occ over past few months after eating. n/v. after eating. Belching symptom when abdominal discomfort n/v occurs. Lesion of colon reason for upcoming procedure. 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 Surgical History History of colonoscopy History of laminectomy History of anesthesia reaction BP DROPS History of tooth extraction S/P nasal surgery RE-SET D/T FRACTURE Hx of cholecystectomy History of back surgery L4-S1 fusion 1999 Family History Grandfather (Maternal) Family history of diabetes mellitus Social History Smoking Status: Current every day smoker Tobacco Type: Cigarettes Cigarettes Per Day: 1/2 pack; Second Hand Exposure: No; Do You Dip or Chew Tobacco: No; Hx Alcohol Use: No Hx Substance Use: No Preferred Language: Kiswahili Communication Ability: Effective Visual Impairment: No Limitations Hearing Ability: Normal Inclusion Special Educator Required: No Beliefs That Will Affect Care: None marital status: Single marital status details: lives with nichole Current Living Situation: Alone Current Living Situation Comment: house current occupational status: employed 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 Dusky bluish discoloration of left thumb and into thenar surface of hand, cool to the touch. Index through pinky fingers warm and well-perfused. Serous fluid filled blisters present on dorsum of hand, some serosanguinous drainage from blisters. Full ROM of fingers with edema, fingers nontender with palpation. Full extension/flexion of fingers only limited by edema. Warmth and redness extending up radial forearm. erythema to elbow. Area of dusky discoloration noted on medial surface of forearm near elbow. Capillary refill of 5 digits < 2 seconds. Edema of hand, fingers and forearm with some firmness of forearm. Tenderness with palpation of foream, wrist. Extreme pain with palpation of hand, wrist and forearm. Fingers nontender. No crepitus. Results & Data Vital Signs (Past 12 Hours) Vital Signs Temp Pulse Resp BP Pulse Ox O2 Del Method 10/06/23 01:07 105 H 19 97 10/06/23 01:00 36.8 C 112 H 18 155/95 H 92 Room Air 10/06/23 00:02 114 H 19 154/95 H 97 Room Air 10/05/23 23:48 116 H 16 159/102 H 97 Room Air Laboratory Results 10/06/23 10/06/23 10/06/23 Range/Units Unknown 08:47 08:46 WBC (4.8-10.8) K/ul RBC (4.70-6.10) M/uL Hgb (14.0-18.0) g/dl Hct (42.0-52.0) % MCV (80.0-100.0) fL MCH (25.0-34.0) pg MCHC (32.0-36.0) g/dL RDW Std Deviation (36.4-46.3) fL RDW Coeff of Gill (11.5-14.5) % Plt Count (130-400) K/uL MPV (9.4-12.4) fL Immature Gran % (Auto) % Neut % (Auto) % Lymph % (Auto) % [place] % (Auto) % Eos % (Auto) % Baso % (Auto) % Neut # (Auto) (1.40-6.50) K/uL Lymph # (Auto) (1.20-3.40) K/uL [place] # (Auto) (0.11-0.59) K/uL Eos # (Auto) (0.00-0.50) K/uL Baso # (Auto) (0.00-0.20) K/uL Immature Gran # (Auto) (0.01-0.20) K/uL ESR 74 H (0-15) mm/hr Protein C Activity Pending Protein S Activity Pending Factor V Leiden Mutat Pending Factor V Leiden Interp Pending Sodium (136-145) mmol/L Potassium (3.5-5.1) mmol/L Chloride (98-107) mmol/L Carbon Dioxide (21-32) mmol/L Anion Gap (3-11) BUN (6-23) mg/dl Creatinine (0.6-1.4) mg/dl Est Cr Clr Drug Dosing ml/min Est GFR ( Amer) ml/min Est GFR (Non-Af Amer) ml/min BUN/Creatinine Ratio (10-20) Glucose (70-99(Fasting)) mg/dl Lactate (0.4-2.0) mmol/L Calcium (8.6-10.3) mg/dl Magnesium (1.7-2.4) mg/dl Total Bilirubin (0.2-1.0) mg/dl AST (13-39) U/L ALT (7-52) U/L Alkaline Phosphatase (34-104) U/L Total Creatine Kinase (30-223) U/L Troponin I High Sens (0-20) pg/ml C-Reactive Protein 12.44 H (0-0.5) mg/dl Total Protein (6.0-8.3) gm/dl Albumin (3.4-5.0) gm/dl Globulin (2.5-4.0) gm/dl Albumin/Globulin Ratio (0.9-2) Procalcitonin (0-0.5) ng/ml Urine Color Dark Yellow Urine Appearance Turbid A (Clear) Urine pH 5.5 (4.5-7.5) Ur Specific [place] 1.033 H (1.000-1.030) Urine Protein Negative (Negative) Urine Glucose (UA) Negative (Negative) Urine Ketones Trace H (Negative) Urine Blood Negative (Negative) Urine Nitrite Negative (Negative) Urine Bilirubin Negative (Negative) Urine Urobilinogen Negative (Negative) Ur Leukocyte Esterase Negative (Negative) Urine WBC (Auto) 1-5 (0-5) /hpf Urine RBC (Auto) 0-4 (0-4) /hpf U Hyaline Cast (Auto) 1-5 (0-5) /lpf U Epithel Cells (Auto) 5-10 H (0-5) /lpf Urine Bacteria (Auto) Negative (Negative) Nasal Screen MRSA (PCR) (Negative) Urine Opiates Screen Pos H (Neg) U Codeine Confrm GC/MS Pending Ur Morphine (GC/MS) Pending Ur Hydrocodone (GC/MS) Pending Ur Norhydrocodone Pending Ur Noroxycodone Pending Urine Oxycodone (GC/MS) Pending U Oxymorphone GC/MS Pending Ur Methadone, Qual Neg (Neg) Ur Hydromorphone (GC/MS) Pending Urine Barbiturates Neg (Neg) Ur Phencyclidine (PCP) Neg (Neg) U Amphetamin/Meth Scrn Neg (Neg) Urine MDEA Pending MDMA (Ecstasy) Screen Pos H (Neg) MDMA Pending Urine MDMA Pending U Benzodiazepines Scrn Neg (Neg) U Cocaine Confirm GC/MS Pending Ur Cocaine Metabolite Pos H (Neg) U Marijuana (THC) Screen Neg (Neg) Drug Screen Comment Pending Cryoglobulin Pending Cryoglobulin Cryocrit Pending Rheumatoid Factor Pending ROSA Screen Pending Scl-70 Scleroderma Ab Pending Anti-Centromere Ab Pending Beta-2-GPI IgG Ab Pending Beta-2-GPI IgA Ab Pending Beta-2-GPI IgM Ab Pending Phosphatidyl&Prothr IgG Pending Phosphatidyl&Prothr IgM Pending Anti-Phospholipid Intrp Pending Anti-Cardiolipin IgG Ab Pending Anti-Cardiolipin IgA Ab Pending Anti-Cardiolipin IgM Ab Pending Complement C3 Pending Complement C4 Pending Lyme Disease IgG Ab (Negative) Lyme Disease IgM Ab (Negative) Prothrombin Gene Mutate Pending Prothromb Gene Comment Pending 10/06/23 10/05/23 10/05/23 Range/Units 05:47 23:52 22:00 WBC 17.39 H (4.8-10.8) K/ul RBC 4.74 (4.70-6.10) M/uL Hgb 12.9 L (14.0-18.0) g/dl Hct 39.2 L (42.0-52.0) % MCV 82.7 (80.0-100.0) fL MCH 27.2 (25.0-34.0) pg MCHC 32.9 (32.0-36.0) g/dL RDW Std Deviation 48.8 H (36.4-46.3) fL RDW Coeff of Gill 16.2 H (11.5-14.5) % Plt Count 410 H (130-400) K/uL MPV 11.3 (9.4-12.4) fL Immature Gran % (Auto) 0.5 % Neut % (Auto) 77.2 % Lymph % (Auto) 13.6 % [place] % (Auto) 8.1 % Eos % (Auto) 0.3 % Baso % (Auto) 0.3 % Neut # (Auto) 13.41 H (1.40-6.50) K/uL Lymph # (Auto) 2.37 (1.20-3.40) K/uL [place] # (Auto) 1.41 H (0.11-0.59) K/uL Eos # (Auto) 0.06 (0.00-0.50) K/uL Baso # (Auto) 0.05 (0.00-0.20) K/uL Immature Gran # (Auto) 0.09 (0.01-0.20) K/uL ESR (0-15) mm/hr Protein C Activity Protein S Activity Factor V Leiden Mutat Factor V Leiden Interp Sodium 135 L (136-145) mmol/L Potassium 3.8 (3.5-5.1) mmol/L Chloride 98 (98-107) mmol/L Carbon Dioxide 26 (21-32) mmol/L Anion Gap 11 (3-11) BUN 13 (6-23) mg/dl Creatinine 0.96 (0.6-1.4) mg/dl Est Cr Clr Drug Dosing 111.1 ml/min Est GFR ( Amer) 113.3 ml/min Est GFR (Non-Af Amer) 97.8 ml/min BUN/Creatinine Ratio 13.5 (10-20) Glucose 86 (70-99(Fasting)) mg/dl Lactate 1.6 (0.4-2.0) mmol/L Calcium 9.3 (8.6-10.3) mg/dl Magnesium 1.8 (1.7-2.4) mg/dl Total Bilirubin 0.8 (0.2-1.0) mg/dl AST 30 (13-39) U/L ALT 20 (7-52) U/L Alkaline Phosphatase 116 H (34-104) U/L Total Creatine Kinase 474 H 636 H (30-223) U/L Troponin I High Sens 10.8 (0-20) pg/ml C-Reactive Protein (0-0.5) mg/dl Total Protein 8.4 H (6.0-8.3) gm/dl Albumin 4.1 (3.4-5.0) gm/dl Globulin 4.3 H (2.5-4.0) gm/dl Albumin/Globulin Ratio 1.0 (0.9-2) Procalcitonin 4.20 H (0-0.5) ng/ml Urine Color Urine Appearance (Clear) Urine pH (4.5-7.5) Ur Specific [place] (1.000-1.030) Urine Protein (Negative) Urine Glucose (UA) (Negative) Urine Ketones (Negative) Urine Blood (Negative) Urine Nitrite (Negative) Urine Bilirubin (Negative) Urine Urobilinogen (Negative) Ur Leukocyte Esterase (Negative) Urine WBC (Auto) (0-5) /hpf Urine RBC (Auto) (0-4) /hpf U Hyaline Cast (Auto) (0-5) /lpf U Epithel Cells (Auto) (0-5) /lpf Urine Bacteria (Auto) (Negative) Nasal Screen MRSA (PCR) Negative (Negative) Urine Opiates Screen (Neg) U Codeine Confrm GC/MS Ur Morphine (GC/MS) Ur Hydrocodone (GC/MS) Ur Norhydrocodone Ur Noroxycodone Urine Oxycodone (GC/MS) U Oxymorphone GC/MS Ur Methadone, Qual (Neg) Ur Hydromorphone (GC/MS) Urine Barbiturates (Neg) Ur Phencyclidine (PCP) (Neg) U Amphetamin/Meth Scrn (Neg) Urine MDEA MDMA (Ecstasy) Screen (Neg) MDMA Urine MDMA U Benzodiazepines Scrn (Neg) U Cocaine Confirm GC/MS Ur Cocaine Metabolite (Neg) U Marijuana (THC) Screen (Neg) Drug Screen Comment Cryoglobulin Cryoglobulin Cryocrit Rheumatoid Factor ROSA Screen Scl-70 Scleroderma Ab Anti-Centromere Ab Beta-2-GPI IgG Ab Beta-2-GPI IgA Ab Beta-2-GPI IgM Ab Phosphatidyl&Prothr IgG Phosphatidyl&Prothr IgM Anti-Phospholipid Intrp Anti-Cardiolipin IgG Ab Anti-Cardiolipin IgA Ab Anti-Cardiolipin IgM Ab Complement C3 Complement C4 Lyme Disease IgG Ab Negative (Negative) Lyme Disease IgM Ab Negative (Negative) Prothrombin Gene Mutate Prothromb Gene Comment Diagnostic Findings Exam(s): CT EXTREMITY LEFT UPPER Without Contrast EXAM: CT Left Upper Extremity Without Intravenous Contrast CLINICAL HISTORY: Reason for exam: ?nec fasciitis?. TECHNIQUE: Axial computed tomography images of the left upper extremity without intravenous contrast. CTDI is 19.67 mGy and DLP is 997.28 mGy-cm. Automated exposure control was utilized for the study. A dose lowering technique was utilized adhering to the principles of ALARA. COMPARISON: No relevant prior studies available. FINDINGS: Bones/joints: No acute fracture. No dislocation. No erosion or periosteal reaction. Soft tissues: Diffuse infiltration of the subcutaneous fat from the elbow to the wrist. No focal mass, phlegmon or collection. No interstitial gas. Underlying musculature grossly unremarkable. IMPRESSION: Diffuse infiltration of the subcutaneous fat from the elbow to the wrist consistent with edema or cellulitis. No interstitial gas or definite deep intramuscular involvement. Exam(s): US ARTERIAL LEFT UPPER EXTREMITY EXAM: US Duplex Left Upper Extremity Arteries CLINICAL HISTORY: Reason for exam: dusky left thumb. TECHNIQUE: Real-time duplex ultrasound scan of the left upper extremity arteries integrating B-mode two-dimensional vascular structure, Doppler spectral analysis and color flow Doppler imaging. COMPARISON: No relevant prior studies available. FINDINGS: Left subclavian artery: No acute abnormality. No occlusion or significant stenosis on color flow and spectral Doppler imaging. Normal waveform. Left axillary artery: No acute abnormality. No occlusion or significant stenosis on color flow and spectral Doppler imaging. Normal waveform. Left brachial artery: No acute abnormality. No occlusion or significant stenosis on color flow and spectral Doppler imaging. Normal waveform. Left radial artery: Abrupt loss of flow/occlusion of the distal radial artery at the level of the distal forearm. No calcified plaque identified. No flow velocity elevation proximal to the occlusion to suggest stenosis. No flow identified in the radial artery distally to the wrist. Left ulnar artery: No acute abnormality. No occlusion or significant stenosis on color flow and spectral Doppler imaging. Normal waveform. Soft tissues: Unremarkable. 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 Exam(s): CT EXTREMITY LEFT UPPER Without Contrast EXAM: CT Left Upper Extremity Without Intravenous Contrast CLINICAL HISTORY: Reason for exam: ?Necrotizing fasciitis?. TECHNIQUE: Axial computed tomography images of the left upper extremity without intravenous contrast. CTDI is 19.67 mGy and DLP is 977.28 mGy-cm. Automated exposure control was utilized for the study. A dose lowering technique was utilized adhering to the principles of ALARA. COMPARISON: No relevant prior studies available. FINDINGS: Bones/joints: No acute fracture. No dislocation. No bone erosion or periosteal reaction. Soft tissues: Mild diffuse subcutaneous infiltration. No focal mass or collection. No interstitial gas. IMPRESSION: Mild diffuse subcutaneous infiltration/edema. No discrete collection. No interstitial gas to suggest necrotizing fasciitis. LEFT HAND 3 VIEWS CLINICAL HISTORY: Cellulitis. FINDINGS: 3 views of the left hand are obtained. No prior studies are available for comparison at the time of dictation. The skeletal structures are well mineralized. No fracture is seen. The joint spaces are maintained. Mild soft tissue edema is present throughout the hand. No soft tissue gas or radiodense foreign body is identified. IMPRESSION: Soft tissue swelling with no acute bony abnormality identified.
[2023-10-06] MEDS: PIPER/TAZO 4.5g in D5W MINI-B 100 ML IV SCH (11:28)
--- NOTE | 2023-10-06 13:09 | Hospitalist Progress Note ---
Date of Service October 06, 2023 Assessment & Plan (1) Infected hand: Plan: Continue vancomycin/zosyn Doppler study demonstrates occulusion of distal radial artery Vascular consulted - no plan for immediate intervention Orthopedics consulted - f/u recommendations Continue pain control - tylenol, motrin, morphine (2) Radial artery occlusion, left: Plan: Continue anticoagulation with lovenox 90mg BID Otherwise as above Admission and Anticipated Discharge Date Admission Date: October 06, 2023 Subjective No acute events overnight. Patient seen and evaluated at bedside this morning. Pt reports pain almost exclusively over the dorsum of the left hand. States his thumb vacillates between dusky and mottled and erythematous. Otherwise, denies fevers, chills, cramping, decreased range of motion. Review of Systems Review of Systems: reviewed, per HPI Physical Exam Physical Exam: Constitutional: upset after meeting with vascular surgery for evaluation, reasonable and cooperative HEENT: NCAT, no conjunctival injection CV: regular rhythm, no murmur appreciated, no LE edema Resp: CTABL, no wheezes/rales/rhonchi appreciated, no increased work of breathing MSK: no gross deformities appreciated Skin: quarter sized eschar on dorsum of left hand, erythematous to the immediate surrounding tissue, left thumb dusky and mottled with trace capillary refill. Good cap refill to the remaining fingers on left hand. Good radial pulse. Non palpable radial pulse. Erythema extending to the distal forearm. Neuro: alert, oriented, no focal neurologic deficit appreciated Results & Data Results & Data Vital Signs (Past 12 Hours) Vital Signs Temp Pulse Resp BP Pulse Ox O2 Del Method 10/06/23 12:06 36.9 C 83 17 126/75 96 Room Air 10/06/23 01:07 105 H 19 97
--- NOTE | 2023-10-06 13:12 | XCELERA ---
[id number]
--- NOTE | 2023-10-06 13:57 | Discharge Summary ---
Date of Service October 06, 2023 Admission HPI Per Admitting Provider Reddy Landaverde is a pleasant 43yo male with history of HTN and diverticulosis presenting with worsening pain and redness of his LUE. Approximately 1.5 weeks ago patient was working on a car in his garage. He put on a pair of new work gloves that were sitting on his bench. His hand started sweating then he developed a stinging/burning sensation on the dorsum of his left hand. He took his gloves off and noted that there was redness on his hand - no insects, spiders or bite daniels. He went to the sink to wash off with water and reports that when the water hit his hand it really started to burn and sting and he developed blisters where the water hit. He had significant pain in his hand so he placed some Lidoderm patches on his hand and went to sleep. When he woke up in the morning he had blisters covering his hand where the Lidoderm patches were. He has continue to have blisters appear on his hand and they have more recently been appearing on his forearms as well. The pain, redness and blisters have been progressing up his arm over the last several days. He has been taking Tylenol and Ibuprofen for pain control with minimal effect as well as biofreeze. He has been elevating his LUE as well. He reports that his thumb had a dusky, olson discoloration at times and even appeared almost black. The discoloration will last several days then will return to normal color. He feels that overall the swelling has improved but the pain has become more severe. He describes the pain in his hand and arm as if "someone smashed it with a sledgehammer then set it on fire". 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 He reports he has a lot of chemicals in his garage. Tonight he was at work and the pain became so severe that he came to the ER. Of note, he was unable to get a ride so he walked here from [place] In the ER he is afebrile, tachycardic otherwise HD stable ER Course: NSS x 2.5 L Vancomycin Cefepime Admission Exam Per Admitting Provider General: patient uncomfortable in appearance but in NAD, answering questions appropriately and following commands Skin: scattered carbuncles noted on RUE, no cellulitis LUE with area of eschar on dorsal surface. Dusky discoloration of dorsum of hand and left thumb, fluid filled blisters present on dorsum of hand. Warmth and redness extending up forearm. Area of dusky discoloration noted on medial surface of forearm near elbow. Capillary refill of 5 digits < 2 seconds. Edema of hand and forearm with some firmness of forearm. Pulses not strongly palpable but easily dopplered radial and ulnar pulse. Extreme pain with palpation of hand, wrist and forearm. No crepitus. HEENT: NC/AT, PERRL, EOMI, anicteric sclera, conjunctiva without injection, external ear normal to inspection and nontender, nares patent, moist mucus membranes, dentition intact, no oropharyngeal lesions, neck supple, trachea midline, no LAD, no thyromegaly, no JVD Heart: +S1/S2, regular, tachycardic, no m/r/g Lungs: equal air entry bilaterally, no rales/rhonchi/wheezes Abd: +BS, soft, NT/ND, no masses/organomegaly/ascites Ext: warm, 2+ pulses in UE/LE bilaterally, no clubbing/cyanosis or edema Neuro: nonfocal, patient AA&O x 4, speech intact, no facial droop, moving all extremities on command with equal strength 5/5 Principal Diagnosis L radial artery occlusion, likely cellulitis vs dermatitis Discharge Exam Constitutional: upset after meeting with vascular surgery for evaluation, reasonable and cooperative HEENT: NCAT, no conjunctival injection CV: regular rhythm, no murmur appreciated, no LE edema Resp: CTABL, no wheezes/rales/rhonchi appreciated, no increased work of breathing MSK: no gross deformities appreciated Skin: quarter sized eschar on dorsum of left hand, erythematous to the immediate surrounding tissue, left thumb dusky and mottled with trace capillary refill. Good cap refill to the remaining fingers on left hand. Good radial pulse. Non palpable radial pulse. Erythema extending to the distal forearm. Neuro: alert, oriented, no focal neurologic deficit appreciated Discharge Data Allergies Allergy/AdvReac Type Severity Reaction Status Date / Time tramadol Allergy Intermediate swelling Verified 10/05/23 23:21 fentanyl [From Duragesic] Allergy Unknown Unknown Verified 10/05/23 23:27 ketorolac AdvReac Severe FACIAL Verified 10/05/23 23:21 SWELLING/THROAT SWELLING propoxyphene AdvReac Intermediate TONGUE Verified 10/05/23 23:21 NUMBNESS acetaminophen [From Tylenol] AdvReac Unknown TOLD TO Verified 10/05/23 23:21 STAY AWAY FROM USING THIS MED. ibuprofen [From Motrin] AdvReac Unknown Unknown Verified 10/05/23 23:27 Consultations 10/05/23 23:11 ED Decision to Admit Stat 10/06/23 03:44 Consult Vascular Surgery Routine 10/06/23 09:40 Consult Orthopedic Surgery Routine Ordered Studies 10/06/23 00:35 CT hand LT wo con Stat 10/06/23 00:46 US arterial duplex UE LT Urgent 10/06/23 00:47 CT forearm LT wo con Stat Hospital Course (1) Infected hand: Continue vancomycin/zosyn Doppler study demonstrates occulusion of distal radial artery Vascular consulted - no plan for immediate intervention Orthopedics consulted - f/u recommendations Continue pain control - tylenol, motrin, morphine (2) Radial artery occlusion, left: Continue anticoagulation with lovenox 90mg BID Otherwise as above Total Time Total Time Spent Total Time Spent (In Minutes): <30 Discharge Plan Discharge Items Patient Disposition: Transfer Acute Care Hospital Reason For Visit: SEPSIS Discharge Diagnosis: Left distal radial artery occlusion with cellulitis Activity: Per Instructions section Non-emergency contact: Primary Care Provider Call non-emergency contact if: you have any medication questions, your symptoms worsen, your pain is not controlled and your pain is worsening Follow-up/Referrals: PCP,NO [Primary Care Provider] - Diet: Regular Addtl Attending Provider Instructions: You were admitted to the hospital for infection of your hand. You were treated with antibiotics. While you were here we evaluated with a CT to be sure there was no deep tissue infection. We also did a study to look at the arteries and veins in your arm. You were found to have a blood clot in the artery that supplies the thumb side of your hand. Fortunately, the artery that supplies the other side of your hand is not blocked and you have good circulation to the majority of your hand. You were evaluated by our vascular and orthopedic surgery teams who felt that you would be better served at an institution that can provide a higher level of care and the decision was made to have you transferred to another hospital. A discharge summary will be sent to your primary care physician to ensure continuity of care. Please bring this discharge summary with you to your next office appointment so that your provider can review it at that time. Follow-up appointments: Make a follow-up appointment with your PCP within the next week. It is very important that you follow up with them shortly after discharge from the hospital. Keep all your follow-up appointments as already scheduled. If you cannot make an appointment, notify your provider. Medications: Your medication list has been reviewed and reconciled upon discharge to ensure accuracy and continuity of care. An updated list of all your medications is included with your hospital discharge paperwork. Please review this list closely, and make note of any changes. If you have any issues filling these prescriptions, please call [phone] and ask to leave a message for Dr. Javon Quintanilla. Take your medications as instructed; do not skip a dose of your medicines. Make sure all of your doctors know every medicine you are taking (including [id number] medicines, vitamins, and supplements). Call your primary care provider before taking any new medicines (including [id number] medicines, vitamins, and supplements), because some of these may interact with your current medications, or may make your symptoms worse. Tell your primary care provider if you cannot afford your medications. CONTACT YOUR PRIMARY CARE PROVIDER if you have difficulty following your treatment plan, or difficulty taking medications CALL [phone] OR GO TO THE EMERGENCY DEPARTMENT if you experience any of the following: Sudden, severe abdominal pain or nausea/vomiting Severe chest pain, or chest pain that radiates (moves) to your jaw or arm Sudden, severe shortness of breath or difficulty breathing Thank you for allowing us to participate in your care. Pending Studies at Discharge: Yes Studies:: Blood Culture Stand-Alone Forms: My [facility] Skilled Items Patient informed of condition?: Yes DNR: No Discharge Level of Care: Other Communicable Disease: No Discharge Prognosis: Stable Lines: Peripheral IV Urinary Catheter: No Medications and DC Order Prescriptions: Continued acetaminophen [Tylenol Extra Strength] 500 mg Tablet 1,000 mg PO DIRECTED PRN (Reason: Pain) Rx Instructions: PER PT "USE VERY RARELY". ibuprofen 200 mg Tablet 400 - 600 mg PO DIRECTED PRN (Reason: Pain) Discharge Orders: Discharge Order (Routine); Ordered 10/06/23 Ordered By: Agustina Cabello Admission Data Admit Date/Time: 10/06/23 00:51 Attending Provider: Migue Denney Admit Provider: Carolynn Randle Primary Care Provider: PCP,NO Other Providers: Carolynn Randle; Adam Mcfadden; Nathen Wilson Other Interventions: Discharge Summary Assessment (RN) Last Done: 10/06/23 16:58 Supervising Physician Co-Signing Physician Notes I personally examined the patient and verified all marshall points of history and exam, discussed case, and agree with decision making with Dr Quintanilla A lot of pain in his hand. Discussed with orthopedics and vascular surgery, also discussed with hand surgeon here who noted that he does not have the vascu lar expertise to be of benefit to the patient. Patient set up for transfer to tertiary care. Vitals noted, in general he is awake and alert other than hand pain appears to be no distress. His hand is swollen and blistered with diffuse erythema and a dusky thumb. Hand cellulitis and radial artery occlusion with downstream cyanosisfor transfer today for vascular/hand orthopedic team approach. Continue broad antibiotics. I wonder about either infection leading to arterial inflammation leading to thrombosis or thromboangiitis obliterans as the mechanism for his arterial occlusion. Echo reassuring. Hypercoagulable labs have been sent, but obviously are pending. Continue anticoagulation with Lovenox.
[2023-10-06] MEDS: ACETAMINOPHEN 500 MG TAB PO PRN (19:12)
--- NOTE | 2023-10-06 19:53 | Billing Data ---
Date of Service October 06, 2023 Coding Level of Care Code 17361 IN/OBS DISCH 30 MIN/LESS
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
[2023-10-07] MEDS ORDERED: VANCOMYCIN LEVEL ONE (05:00)
[2023-10-12 15:42] LABS: Cocaine, Urine >15000 ng/mL (<100); Codeine Urine NEGATIVE ng/mL (<50); Hydrocodone Urine NEGATIVE ng/mL (<50); Hydromor Urine NEGATIVE ng/mL (<50); MDA negative; MDEA negative; MDMA (Ecstasy) Urine, Confirm negative; Morphine Urine 990 ng/mL (<50); Norhydrocodone Conf Ur NEGATIVE ng/mL (<50); Noroxycodone Urine NEGATIVE ng/mL (<50); Oxycodone Urine NEGATIVE ng/mL (<50); Oxymorph Urine NEGATIVE ng/mL (<50)
[2023-10-12 21:46] LABS: Factor 5 Mutation NEGATIVE
[2023-10-12 22:38] LABS: % Cryocrit DNR; Cryoglobulin, QL Negative (Negative)
[2023-10-14 05:48] LABS: Anti Cardiolipin Ab IgG <2.0 GPL-U/mL (<20.0); Anti Cardiolipin Ab IgM <2.0 MPL-U/mL (<20.0); Anti Nuclear Antibody Screen NEGATIVE (NEGATIVE); Anti-Cardiolipin Ab IgA <2.0 APL-U/mL (<20.0); Anti-Centromere Ab <1.0 NEG AI (<1.0 NEG); B2 Glycoprotein IgA <2.0 U/mL (<20.0); B2 Glycoprotein IgG <2.0 U/mL (<20.0); B2 Glycoprotein IgM <2.0 U/mL (<20.0); Complement C3 139 mg/dL (82-185); Phosphatidylser Prothrom IgG <9 U (<=30); Phosphatidylserine ProthromIgM 28 U (<=30); Protein S Functional(Activity) 39 % normal (70-150); Rheumatoid Factor 24 IU/mL (<14); Scleroderma Anti Scl-70 Ab <1.0 NEG AI (<1.0 NEG)
--- NOTE | 2023-10-17 12:26 | Coding Query ---
CODING QUERY To promote full compliance with coding requirements relating to patient care, provider participation is requested in all cases of concrete pointer uncertainty. Please assist us with the question(s) below: Coding Question(s): Dr. Denney, The medical record reflects the following clinical evidence: Clinical Indicators: Arterial US of the left upper extremity demonstrated occluded left radial artery, consistent with thrombosis. Risk Factor(s): Smoking, ?trauma, ?embolization Treatment: Lovenox SQ, vascular consultation. Please clarify if these findings indicate ( x) Left radial artery thrombosis ( ) Other explanation of clinical findings ( ) Unable to determine (no explanation for clinical findings) Physician's Response(s): Thank you LUZ Ramirez, [facility]
== END 2023-10-06 20:12 | disposition short-term general hospital (02) | DRG 300 ==
LOC: ED 21:07 → SUATTDRO 23:47 → 2N 23:47